=== PATIENT | male | born 1940 | race Caucasian/White ===

== ENCOUNTER 2016-09-24 21:18 | Inpatient (IN) | payer MEDICARE, BC ==
[2016-09-24] MEDS ORDERED: NS 0.9% 1000 ML* 1,000 ML IV ONE ×2 (22:20→23:43)
--- NOTE | 2016-09-24 22:47 | RAD ---
HISTORY: Fever COMPARISONS: July 02, 2016 VIEWS:1: Single frontal portable view of the chest at 10:34 PM FINDINGS: LINES AND TUBES: A left-sided pacemaker is noted CARDIOMEDIASTINAL SILHOUETTE: The cardiomediastinal silhouette is normal for portable technique. PLEURA: The costophrenic angles are sharp. No pleural abnormalities are noted. LUNG PARENCHYMA: The lungs are clear. ABDOMEN: The upper abdomen is clear. There is no subphrenic gas. BONES AND SOFT TISSUES: The patient is status post median sternotomy. IMPRESSION: NO ACTIVE CARDIOPULMONARY DISEASE.
[2016-09-24 23:25] LABS: Hematocrit 46 % (42-52); Hemoglobin 15.5 g/dl (14.0-18.0); Mean Corpuscular HGB Conc 34 g/dl (31-36); Mean Corpuscular Hemoglobin 32 pg (27-31); Mean Corpuscular Volume 95 fL (80-94); Mean Platelet Volume 8 um3 (7.4-10.4); Red Blood Count 4.91 10^6/ul (4.0-5.4); Red Cell Distribution Width 14 % (10.5-15); White Blood Count 11.1 10^3/ul (3.5-10.8)
[2016-09-24 23:35] LABS: Budding Yeast Present (Absent); Urine Bacteria 1+ (Absent); Urine Bilirubin Negative (Negative); Urine Glucose Negative (Negative); Urine Nitrite Negative (Negative)
[2016-09-24 23:38] LABS: BUN/Creatinine Ratio 21.2 (8-20); C Reactive Protein 2.63 mg/L (< 5.00); Calcium 9.3 mg/dL (8.6-10.3); EGFR Non-African American 73.9 (>60); Potassium 3.8 mmol/L (3.5-5.0); Total Bilirubin 0.8 mg/dL (0.2-1.0)
[2016-09-24] MEDS ORDERED: cefTRIAXone VIAL(*) 1,000 MG in NS 0.9% 50 ML* 50 ML IVPB ONE (23:39)
[2016-09-24 23:45] LABS: Troponin I 0.05 ng/mL (<0.04)
--- NOTE | 2016-09-25 00:23 | ED ---
Doris Stone Erika, scribed for Richi Posada MD on 09/24/16 at 2228 . HPI Febrile Illness - HPI Summary HPI Summary: Patient is a 76-year-old male presenting to the ED with chills. Patient reports that at 20:45 today, he developed chills and rigors. He states now, he still intermittently has shakes, and is constantly cold still. Pt notes some nasal discharge since getting here. He denies sore throat, SOB, cough, abdominal pain , diarrhea, and dysuria. Pt took oscillococcinum SUSTAINABILITY EXECUTIVE DIRECTOR, which is a homeopathic flu medication. PSHx defibrillator, pacemaker, aortic valve replacement - pt takes Xarelto. He denies Hx HTN, DM, and hyperlipidemia. Pt does not smoke or drink. - History of Current Complaint Chief Complaint: EDFever Time Seen by Provider: 09/24/16 22:13 Hx Obtained From: Patient, Family/Rn Cardiovascular Icu - Onset/Duration: Started Hours Ago, Atraumatic, Still Present Timing: Constant Current Severity: Moderate Pain Intensity: 0 Pain Scale Used: 0-10 Numeric Aggravating Factors: Nothing Alleviating Factors: Nothing Associated Signs and Symptoms: Chills - Allergy/Home Medications Allergies/Adverse Reactions: Allergies Allergy/AdvReac Type Severity Reaction Status Date / Time Lisinopril Allergy Unknown Verified 02/13/14 12:18 Reaction Details Spironolactone Allergy Unknown Verified 02/13/14 12:18 Reaction Details PMH/Surg Hx/FS Hx/Imm Hx Endocrine/Hematology History: Denies: Hx Diabetes, Hx Thyroid Disease Cardiovascular History: Reports: Hx Cardiomegaly, Hx Coronary Artery Disease, 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, Other Cardiovascular Problems/ Disorders - ATRIAL FLUTTER,PAROXYSMAL SUPRAVENTRICULAR TACHYCARDIA Denies: Hx Hypertension, Hx Peripheral Vascular Disease Respiratory History: Denies: Hx Asthma, Hx Chronic Obstructive Pulmonary Disease (COPD) GI History: Denies: Hx Ulcer History: Denies: Other Problems/Disorders Musculoskeletal History: Denies: Hx Arthritis, Hx Rheumatoid Arthritis, Hx Osteoporosis Sensory History: Reports: Hx Contacts or Glasses - WEARS GLASSES Denies: Hx Cataracts, Hx Glaucoma, Hx Hearing Aid Opthamlomology History: Reports: Hx Contacts or Glasses - WEARS GLASSES Denies: Hx Cataracts, Hx Glaucoma Neurological History: Denies: Hx Headaches, Hx Seizures, Hx Transient Ischemic Attacks (TIA) Psychiatric History: Denies: Hx Anxiety, Hx Depression - Surgical History Surgery Procedure, Year, and Place: Knee Replacements ,06. shoulder surgery. AVR / MVR. cardiac valve replacement Hx Anesthesia Reactions: No Infectious Disease History: No Infectious Disease History: Denies: Hx Hepatitis, Hx Human Immunodeficiency Virus (HIV), Hx of Known/ Suspected MRSA, Hx Shingles, Hx Tuberculosis, Traveled Outside the [place] in Last 30 Days Comment Only: Hx Clostridium Difficile - exposed to Cdiff - Family History Family History: Denies FHx anesthesia reaction - Social History Alcohol Use: None Hx Substance Use: No Substance Use Type: Reports: None Hx Tobacco Use: No Smoking Status (MU): Never Smoked Tobacco Review of Systems Positive: Fever, Chills Negative: Sore Throat, Nasal Discharge Negative: Shortness Of Breath, Cough Negative: Abdominal Pain, Diarrhea Negative: dysuria All Other Systems Reviewed And Are Negative: Yes Physical Exam - Summary Physical Exam Summary: VITAL SIGNS: Reviewed. GENERAL: Patient is a well developed and nourished male who is lying comfortable in the stretcher. Patient is not in any acute respiratory distress. HEAD AND FACE: No signs of trauma. No ecchymosis, hematomas or skull depressions. No sinus tenderness. EYES: PERRLA, EOMI x 2, No injected conjunctiva, no nystagmus. EARS: Hearing grossly intact. Ear canals and tympanic membranes are within normal limits. MOUTH: Oropharynx within normal limits. NECK: Supple, trachea is midline, no adenopathy, no JVD, no carotid bruit, no c- spine tenderness, neck with full ROM. CHEST: Symmetric, no tenderness at palpation LUNGS: Clear to auscultation bilaterally. No wheezing or crackles. CVS: Regular rate and rhythm, S1 and S2 present, no murmurs or gallops appreciated. ABDOMEN: Soft, non-tender. No signs of distention. No rebound no guarding, and no masses palpated. Bowel sounds are normal. EXTREMITIES: FROM in all major joints, no edema, no cyanosis or clubbing. NEURO: Alert and oriented x 3. No acute neurological deficits. Speech is normal and follows commands. SKIN: Dry and warm Triage Information Reviewed: Yes Vital Signs On Initial Exam: Initial Vitals Temp Pulse Resp BP Pulse Ox 99.3 F 80 22 124/64 98 09/24/16 21:20 09/24/16 21:20 09/24/16 21:20 09/24/16 21:20 09/24/16 21:20 Vital Signs Reviewed: Yes Diagnostics - Vital Signs Vital Signs Temp Pulse Resp BP Pulse Ox 09/24/16 21:20 99.3 F 80 22 124/64 98 - Laboratory Lab Results: Lab Results 09/24/16 09/24/16 09/24/16 Range/Units 22:50 22:50 22:50 WBC 11.1 H (3.5-10.8) 10^3/ul RBC 4.91 (4.0-5.4) 10^6/ul Hgb 15.5 (14.0-18.0) g/dl Hct 46 (42-52) % MCV 95 H (80-94) fL MCH 32 H (27-31) pg MCHC 34 (31-36) g/dl RDW 14 (10.5-15) % Plt Count 130 L (150-450) 10^3/ul MPV 8 (7.4-10.4) um3 Neut % (Auto) 89.3 H (38-83) % Lymph % (Auto) 4.2 L (25-47) % [place] % (Auto) 4.5 (1-9) % Eos % (Auto) 1.5 (0-6) % Baso % (Auto) 0.5 (0-2) % Absolute Neuts (auto) 9.9 H (1.5-7.7) 10^3/ul Absolute Lymphs (auto) 0.5 L (1.0-4.8) 10^3/ul Absolute Monos (auto) 0.5 (0-0.8) 10^3/ul Absolute Eos (auto) 0.2 (0-0.6) 10^3/ul Absolute Basos (auto) 0.1 (0-0.2) 10^3/ul Absolute Nucleated RBC 0.02 10^3/ul Nucleated RBC % 0.1 INR (Anticoag Therapy) 1.89 H (0.89-1.11) APTT 32.4 (26.0-36.3) seconds Fibrinogen 296 (110.8-404.3) mg/dL Sodium (133-145) mmol/L Potassium (3.5-5.0) mmol/L Chloride (101-111) mmol/L Carbon Dioxide (22-32) mmol/L Anion Gap (2-11) mmol/L BUN (6-24) mg/dL Creatinine (0.67-1.17) mg/dL Est GFR ( Amer) (>60) Est GFR (Non-Af Amer) (>60) BUN/Creatinine Ratio (8-20) Glucose (70-100) mg/dL Lactic Acid (0.5-2.0) mmol/L Calcium (8.6-10.3) mg/dL Total Bilirubin (0.2-1.0) mg/dL AST (13-39) U/L ALT (7-52) U/L Alkaline Phosphatase (34-104) U/L Total Creatine Kinase (10-223) U/L Troponin I (<0.04) ng/mL C-Reactive Protein (< 5.00) mg/L B-Natriuretic Peptide ( - 100) pg/mL Total Protein (6.4-8.9) g/dL Albumin (3.2-5.2) g/dL Globulin (2-4) g/dL Albumin/Globulin Ratio (1-3) Urine Color Yellow Urine Appearance Clear Urine pH 6.0 (5-9) Ur Specific [place] 1.012 (1.010-1.030) Urine Protein Negative (Negative) Urine Ketones Negative (Negative) Urine Blood 1+ H (Negative) Urine Nitrate Negative (Negative) Urine Bilirubin Negative (Negative) Urine Urobilinogen Negative (Negative) Ur Leukocyte Esterase 1+ H (Negative) Urine WBC (Auto) 3+(>20/hpf) H (Absent) Urine RBC (Auto) 3+(>10/hpf) H (Absent) Urine Bacteria 1+ H (Absent) Urine Yeast Present H (Absent) Urine Glucose Negative (Negative) 09/24/16 09/24/16 09/24/16 Range/Units 22:50 22:50 22:50 WBC (3.5-10.8) 10^3/ul RBC (4.0-5.4) 10^6/ul Hgb (14.0-18.0) g/dl Hct (42-52) % MCV (80-94) fL MCH (27-31) pg MCHC (31-36) g/dl RDW (10.5-15) % Plt Count (150-450) 10^3/ul MPV (7.4-10.4) um3 Neut % (Auto) (38-83) % Lymph % (Auto) (25-47) % [place] % (Auto) (1-9) % Eos % (Auto) (0-6) % Baso % (Auto) (0-2) % Absolute Neuts (auto) (1.5-7.7) 10^3/ul Absolute Lymphs (auto) (1.0-4.8) 10^3/ul Absolute Monos (auto) (0-0.8) 10^3/ul Absolute Eos (auto) (0-0.6) 10^3/ul Absolute Basos (auto) (0-0.2) 10^3/ul Absolute Nucleated RBC 10^3/ul Nucleated RBC % INR (Anticoag Therapy) (0.89-1.11) APTT (26.0-36.3) seconds Fibrinogen (110.8-404.3) mg/dL Sodium 135 (133-145) mmol/L Potassium 3.8 (3.5-5.0) mmol/L Chloride 102 (101-111) mmol/L Carbon Dioxide 26 (22-32) mmol/L Anion Gap 7 (2-11) mmol/L BUN 21 (6-24) mg/dL Creatinine 0.99 (0.67-1.17) mg/dL Est GFR ( Amer) 95.0 (>60) Est GFR (Non-Af Amer) 73.9 (>60) BUN/Creatinine Ratio 21.2 H (8-20) Glucose 101 H (70-100) mg/dL Lactic Acid 1.1 (0.5-2.0) mmol/L Calcium 9.3 (8.6-10.3) mg/dL Total Bilirubin 0.80 (0.2-1.0) mg/dL AST 25 (13-39) U/L ALT 26 (7-52) U/L Alkaline Phosphatase 55 (34-104) U/L Total Creatine Kinase 78 (10-223) U/L Troponin I 0.05 H* (<0.04) ng/mL C-Reactive Protein 2.63 (< 5.00) mg/L B-Natriuretic Peptide 324 H ( - 100) pg/mL Total Protein 7.0 (6.4-8.9) g/dL Albumin 4.0 (3.2-5.2) g/dL Globulin 3.0 (2-4) g/dL Albumin/Globulin Ratio 1.3 (1-3) Urine Color Urine Appearance Urine pH (5-9) Ur Specific [place] (1.010-1.030) Urine Protein (Negative) Urine Ketones (Negative) Urine Blood (Negative) Urine Nitrate (Negative) Urine Bilirubin (Negative) Urine Urobilinogen (Negative) Ur Leukocyte Esterase (Negative) Urine WBC (Auto) (Absent) Urine RBC (Auto) (Absent) Urine Bacteria (Absent) Urine Yeast (Absent) Urine Glucose (Negative) Result Diagrams: 09/24/16 22:50 09/24/16 22:50 Lab Statement: Any lab studies that have been ordered have been reviewed, and results considered in the medical decision making process. - Radiology CXR Radiology Interpretation Completed By: Radiologist - IMPRESSION: NO ACTIVE CARDIOPULMONARY DISEASE. - EKG 23:49 Cardiac Rate: NL - at 74 bpm EKG Rhythm: Sinus Rhythm EKG Interpretation: No ST elevation. ST depressions V5-V6. Re-Evaluation - Re-Evaluation First Eval Re-Evaluation Time: 23:44 Comment: Discussed results and plan with patient Course/Dx - Course Assessment/Plan: Patient is a 76-year-old male presenting to the ED with chills. Patient reports that at 20:45 today, he developed chills and rigors. He states now, he still intermittently has shakes, and is constantly cold still. Pt notes some nasal discharge since getting here. He denies sore throat, SOB, cough, abdominal pain, diarrhea, and dysuria. Pt took oscillococcinum SUSTAINABILITY EXECUTIVE DIRECTOR, which is a homeopathic flu medication. PSHx defibrillator, pacemaker, aortic valve replacement - pt takes Xarelto. He denies Hx HTN, DM, and hyperlipidemia. Pt does not smoke or drink. Blood work shows a WBC of 11.1, glucose of 101, troponin of 0.05, and BNP of 324. UA shows UTI. Influenza A&B are negative. CXR shows no acute pathology. EKG shows NSR at [address] depressions in V5 and V6. In the ED course, pt was given aspirin because of the increased troponin. The pt denies and CP or SOB. For the UTI, the pt was placed on rocephin. At this time, I discussed my PE and findings with Dr. Blevins who will be admitting the pt to his services for further work up and management. The pt is A &Ox3 and hemodynamically stable. - Febrile Illness Differential Diagnoses: Sepsis, Other: - UTI, Pneumonia, Flu - Diagnoses Provider Diagnoses: Acute UTI, Elevated troponin I level, r/o sepsis - Provider Notifications Discussed Care Of Patient With: Dr. Blevins (hospitalist) at 23:43 - recommends that pt receive IV fluids to see if BP will increase. Dr. Blevins (hospitalist) at 00:10 - agrees to admit Discharge - Discharge Plan Condition: Stable Disposition: ADMITTED TO [facility] Referrals: Sai Gbison MD [Primary Care Provider] - The documentation as recorded by the Doris baez Erika accurately reflects the service I personally performed and the decisions made by me, Richi Posada MD.
--- NOTE | 2016-09-25 00:27 | HP ---
H&P (Free Text) History and Physical: PCP: Bernabe Gibson MD Cardiology: Spencer Glover MD Date/Time of Evaluation: 09/25/201624 CC: chills & shaking HPI: Mr Dasilva is a 76YO male HX CAD, tissue AVR, mitral valve repair, & AICD placement presents reporting onset of chills and rigors at 1900, but no chest pain, SOB, N/V, palpitations, light-headedness, or sweats. He denies abdominal pain and change in bowel/bladder. He denies HX of similar. He and his were concerned for influenza and so presented for evaluation. Work up is notable for stable vitals. UA is consistent with UTI. CXR is negative. Labs show WBCs of 11k w/ 89% neutrophils and a troponin of 0.05 with a BNP of 324 (both of which appear to be baseline for him). Given his extensive cardiac HX request for observation was made. He reports having had a stress test last summer and an ECHO last week, but I can find neither in our records. Will place a request for records from Spencer Glover MD cardiology. 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 ROS: as above, otherwise reviewed and all were negative Constitutional: NAD, normally developed, well-nourished white male vitals: Vital Signs Temp 39.0 C 09/25/16 01:02 Pulse 73 09/25/16 01:00 Resp 20 09/25/16 01:00 BP 108/60 09/25/16 00:30 Pulse Ox 94 09/25/16 01:00 Intake & Output 02/08/17 02/08/17 02/09/17 11:59 23:59 11:59 Intake Total 1000 50 Balance 1000 50 Weight 195 lb Intake: IV Fluids 1000 50 HEENM: atraumatic; sclera/conjunctiva: non-icteric/clear; hearing: clinically intact; oropharynx: clear, mucosa moist Neck: soft tissue: non-tender; thyroid: normal Pulmonary: clear to auscultation bilaterally, good aeration, no accessory muscle use CV: RR/RR, normal S1S2, no carotid bruit, no jugular venous distention, 2+ B DP/ PT, no edema Abdominal: soft, non-distended, non-tender, no rebound/guarding/rigidity, normoactive bowel sounds, no hepatosplenomegaly or masses, no costovertebral angle tenderness Musculoskeletal: general: grossly intact; gait: stable Integumental: normal appearance and texture Psychiatric orientation: AA&O to PPS affect: calm mood: cooperative eye contact: good content: reliable responses: timely insight: good Testing: Lab Results 09/24/16 09/24/16 09/24/16 Range/Units 22:50 22:50 22:50 WBC 11.1 H (3.5-10.8) 10^3/ul RBC 4.91 (4.0-5.4) 10^6/ul Hgb 15.5 (14.0-18.0) g/dl Hct 46 (42-52) % MCV 95 H (80-94) fL MCH 32 H (27-31) pg MCHC 34 (31-36) g/dl RDW 14 (10.5-15) % Plt Count 130 L (150-450) 10^3/ul MPV 8 (7.4-10.4) um3 Neut % (Auto) 89.3 H (38-83) % Lymph % (Auto) 4.2 L (25-47) % [place] % (Auto) 4.5 (1-9) % Eos % (Auto) 1.5 (0-6) % Baso % (Auto) 0.5 (0-2) % Absolute Neuts (auto) 9.9 H (1.5-7.7) 10^3/ul Absolute Lymphs (auto) 0.5 L (1.0-4.8) 10^3/ul Absolute Monos (auto) 0.5 (0-0.8) 10^3/ul Absolute Eos (auto) 0.2 (0-0.6) 10^3/ul Absolute Basos (auto) 0.1 (0-0.2) 10^3/ul Absolute Nucleated RBC 0.02 10^3/ul Nucleated RBC % 0.1 INR (Anticoag Therapy) 1.89 H (0.89-1.11) APTT 32.4 (26.0-36.3) seconds Fibrinogen 296 (110.8-404.3) mg/dL Sodium (133-145) mmol/L Potassium (3.5-5.0) mmol/L Chloride (101-111) mmol/L Carbon Dioxide (22-32) mmol/L Anion Gap (2-11) mmol/L BUN (6-24) mg/dL Creatinine (0.67-1.17) mg/dL Est GFR ( Amer) (>60) Est GFR (Non-Af Amer) (>60) BUN/Creatinine Ratio (8-20) Glucose (70-100) mg/dL Lactic Acid (0.5-2.0) mmol/L Calcium (8.6-10.3) mg/dL Total Bilirubin (0.2-1.0) mg/dL AST (13-39) U/L ALT (7-52) U/L Alkaline Phosphatase (34-104) U/L Total Creatine Kinase (10-223) U/L Troponin I (<0.04) ng/mL C-Reactive Protein (< 5.00) mg/L B-Natriuretic Peptide ( - 100) pg/mL Total Protein (6.4-8.9) g/dL Albumin (3.2-5.2) g/dL Globulin (2-4) g/dL Albumin/Globulin Ratio (1-3) Urine Color Yellow Urine Appearance Clear Urine pH 6.0 (5-9) Ur Specific [place] 1.012 (1.010-1.030) Urine Protein Negative (Negative) Urine Ketones Negative (Negative) Urine Blood 1+ H (Negative) Urine Nitrate Negative (Negative) Urine Bilirubin Negative (Negative) Urine Urobilinogen Negative (Negative) Ur Leukocyte Esterase 1+ H (Negative) Urine WBC (Auto) 3+(>20/hpf) H (Absent) Urine RBC (Auto) 3+(>10/hpf) H (Absent) Urine Bacteria 1+ H (Absent) Urine Yeast Present H (Absent) Urine Glucose Negative (Negative) Influenza A (Rapid) (Negative) Influenza B (Rapid) (Negative) 09/24/16 09/24/16 09/24/16 Range/Units 22:50 22:50 22:50 WBC (3.5-10.8) 10^3/ul RBC (4.0-5.4) 10^6/ul Hgb (14.0-18.0) g/dl Hct (42-52) % MCV (80-94) fL MCH (27-31) pg MCHC (31-36) g/dl RDW (10.5-15) % Plt Count (150-450) 10^3/ul MPV (7.4-10.4) um3 Neut % (Auto) (38-83) % Lymph % (Auto) (25-47) % [place] % (Auto) (1-9) % Eos % (Auto) (0-6) % Baso % (Auto) (0-2) % Absolute Neuts (auto) (1.5-7.7) 10^3/ul Absolute Lymphs (auto) (1.0-4.8) 10^3/ul Absolute Monos (auto) (0-0.8) 10^3/ul Absolute Eos (auto) (0-0.6) 10^3/ul Absolute Basos (auto) (0-0.2) 10^3/ul Absolute Nucleated RBC 10^3/ul Nucleated RBC % INR (Anticoag Therapy) (0.89-1.11) APTT (26.0-36.3) seconds Fibrinogen (110.8-404.3) mg/dL Sodium 135 (133-145) mmol/L Potassium 3.8 (3.5-5.0) mmol/L Chloride 102 (101-111) mmol/L Carbon Dioxide 26 (22-32) mmol/L Anion Gap 7 (2-11) mmol/L BUN 21 (6-24) mg/dL Creatinine 0.99 (0.67-1.17) mg/dL Est GFR ( Amer) 95.0 (>60) Est GFR (Non-Af Amer) 73.9 (>60) BUN/Creatinine Ratio 21.2 H (8-20) Glucose 101 H (70-100) mg/dL Lactic Acid 1.1 (0.5-2.0) mmol/L Calcium 9.3 (8.6-10.3) mg/dL Total Bilirubin 0.80 (0.2-1.0) mg/dL AST 25 (13-39) U/L ALT 26 (7-52) U/L Alkaline Phosphatase 55 (34-104) U/L Total Creatine Kinase 78 (10-223) U/L Troponin I 0.05 H* (<0.04) ng/mL C-Reactive Protein 2.63 (< 5.00) mg/L B-Natriuretic Peptide 324 H ( - 100) pg/mL Total Protein 7.0 (6.4-8.9) g/dL Albumin 4.0 (3.2-5.2) g/dL Globulin 3.0 (2-4) g/dL Albumin/Globulin Ratio 1.3 (1-3) Urine Color Urine Appearance Urine pH (5-9) Ur Specific [place] (1.010-1.030) Urine Protein (Negative) Urine Ketones (Negative) Urine Blood (Negative) Urine Nitrate (Negative) Urine Bilirubin (Negative) Urine Urobilinogen (Negative) Ur Leukocyte Esterase (Negative) Urine WBC (Auto) (Absent) Urine RBC (Auto) (Absent) Urine Bacteria (Absent) Urine Yeast (Absent) Urine Glucose (Negative) Influenza A (Rapid) (Negative) Influenza B (Rapid) (Negative) 09/24/16 Range/Units 23:38 WBC (3.5-10.8) 10^3/ul RBC (4.0-5.4) 10^6/ul Hgb (14.0-18.0) g/dl Hct (42-52) % MCV (80-94) fL MCH (27-31) pg MCHC (31-36) g/dl RDW (10.5-15) % Plt Count (150-450) 10^3/ul MPV (7.4-10.4) um3 Neut % (Auto) (38-83) % Lymph % (Auto) (25-47) % [place] % (Auto) (1-9) % Eos % (Auto) (0-6) % Baso % (Auto) (0-2) % Absolute Neuts (auto) (1.5-7.7) 10^3/ul Absolute Lymphs (auto) (1.0-4.8) 10^3/ul Absolute Monos (auto) (0-0.8) 10^3/ul Absolute Eos (auto) (0-0.6) 10^3/ul Absolute Basos (auto) (0-0.2) 10^3/ul Absolute Nucleated RBC 10^3/ul Nucleated RBC % INR (Anticoag Therapy) (0.89-1.11) APTT (26.0-36.3) seconds Fibrinogen (110.8-404.3) mg/dL Sodium (133-145) mmol/L Potassium (3.5-5.0) mmol/L Chloride (101-111) mmol/L Carbon Dioxide (22-32) mmol/L Anion Gap (2-11) mmol/L BUN (6-24) mg/dL Creatinine (0.67-1.17) mg/dL Est GFR ( Amer) (>60) Est GFR (Non-Af Amer) (>60) BUN/Creatinine Ratio (8-20) Glucose (70-100) mg/dL Lactic Acid (0.5-2.0) mmol/L Calcium (8.6-10.3) mg/dL Total Bilirubin (0.2-1.0) mg/dL AST (13-39) U/L ALT (7-52) U/L Alkaline Phosphatase (34-104) U/L Total Creatine Kinase (10-223) U/L Troponin I (<0.04) ng/mL C-Reactive Protein (< 5.00) mg/L B-Natriuretic Peptide ( - 100) pg/mL Total Protein (6.4-8.9) g/dL Albumin (3.2-5.2) g/dL Globulin (2-4) g/dL Albumin/Globulin Ratio (1-3) Urine Color Urine Appearance Urine pH (5-9) Ur Specific [place] (1.010-1.030) Urine Protein (Negative) Urine Ketones (Negative) Urine Blood (Negative) Urine Nitrate (Negative) Urine Bilirubin (Negative) Urine Urobilinogen (Negative) Ur Leukocyte Esterase (Negative) Urine WBC (Auto) (Absent) Urine RBC (Auto) (Absent) Urine Bacteria (Absent) Urine Yeast (Absent) Urine Glucose (Negative) Influenza A (Rapid) Negative (Negative) Influenza B (Rapid) Negative (Negative) ECG, personally reviewed: NSR rate 74 w/ interval development of ST depression in V5/6 & I CXR, personally reviewed: cardiomegaly, AICD in L chest, no acute process Impression: 76M presenting with subjective chills and rigors suspect 2nd UTI w/ finding of abnormal ECG DIAGNOSIS & PLAN Primary UTI : ceftriaxone IV : cautious IVFs given cardiomyopathy EF 20-25% : blood & urine CXs : supportive care abnormal ECG in setting of CAD/1vCABG/PAOD/cardiomyopathy EF 20-25%/tissue AVR/ HX mitral valve repair : no cardiac complaints : troponin & BNP are baseline : trend troponin : telemetry : if these are negative, would not pursue further inpatient work up and recommend outpatient f/u w/ cardiology Admission Rational: CDU observation for initiation of ABX for UTI & cardiac monitoring DVTp: continue rivaroxaban once reconciled Code Status: full HCP:
[2016-09-25] MEDS ORDERED: traMADol TAB* 50 MG PO PRN (01:21)
[2016-09-25] MEDS ORDERED: Melatonin (NF) 3 MG TAB PO PRN (01:21)
[2016-09-25] MEDS ORDERED: Ondansetron INJ* 2 MG/ML VIAL IV PRN (01:21)
[2016-09-25] MEDS: Aspirin TAB* 325 MG PO SCH ×2 (02:32→08:35)
[2016-09-25] MEDS: NS 0.9% 1000 ML* 1,000 ML IV SCH ×2 (02:33→13:41)
[2016-09-25] MEDS: Omeprazole CAP* 20 MG PO SCH (05:35)
[2016-09-25 06:07] LABS: Hematocrit 43 % (42-52); Hemoglobin 14.5 g/dl (14.0-18.0); Mean Corpuscular HGB Conc 34 g/dl (31-36); Mean Corpuscular Hemoglobin 32 pg (27-31); Mean Corpuscular Volume 94 fL (80-94); Mean Platelet Volume 8 um3 (7.4-10.4); Red Blood Count 4.57 10^6/ul (4.0-5.4); Red Cell Distribution Width 13 % (10.5-15); White Blood Count 18.4 10^3/ul (3.5-10.8)
[2016-09-25 06:29] LABS: Troponin I 0.09 ng/mL (<0.04)
[2016-09-25] MEDS: Docusate CAP* 100 MG PO SCH ×2 (07:46→22:02)
[2016-09-25] MEDS: Acetaminophen TAB* 325 MG PO PRN ×2 (07:46→15:25)
--- NOTE | 2016-09-25 10:31 | PN ---
Subjective Date of Service: 09/25/16 Interval History: Patient seen this morning. Sitting up in bed, says he feels that he is getting better. No further chills since early this morning. Still reports some dysuria. No CVA tenderness. Family History: Unchanged from Admission Social History: Unchanged from Admission Past Medical History: Unchanged from Admission Objective Active Medications: Acetaminophen (Tylenol Tab*) 650 mg PO Q6H PRN Aspirin (Aspirin Tab*) 325 mg PO DAILY KENDRA Docusate Sodium (Colace Cap*) 200 mg PO BID KENDRA Sodium Chloride (Ns 0.9% 1000 Ml*) 1,000 mls @ 75 mls/hr IV PER RATE KENDRA Ceftriaxone Sodium 1,000 mg/ (Sodium Chloride) 50 mls @ 200 mls/hr IVPB Q24H KENDRA Melatonin (Melatonin (Nf)) 3 mg PO BEDTIME PRN; Protocol Omeprazole (Prilosec Cap*) 20 mg PO DAILY@0600 KENDRA Ondansetron HCl (Zofran Inj*) 4 mg IV Q6H PRN Tramadol HCl (Ultram*) 50 mg PO Q6H PRN Vital Signs 09/25/16 09/25/16 09/25/16 01:00 01:02 01:30 Temperature 102.2 F Pulse Rate 73 73 Respiratory 20 20 Rate Blood Pressure 90/53 (mmHg) O2 Sat by Pulse 94 93 Oximetry 09/25/16 09/25/16 09/25/16 02:02 02:10 02:11 Temperature 98.4 F 102.6 F 102.6 F Pulse Rate 70 73 Respiratory 16 16 Rate Blood Pressure 93/53 93/53 (mmHg) O2 Sat by Pulse 92 92 Oximetry 09/25/16 09/25/16 09/25/16 03:22 07:41 09:51 Temperature 98.7 F 100.5 F Pulse Rate 86 70 Respiratory 20 18 Rate Blood Pressure 133/93 90/49 (mmHg) O2 Sat by Pulse 96 99 99 Oximetry Oxygen Devices in Use Now: None Appearance: Elderly, M, sitting up in bed in NAD Eyes: No Scleral Icterus Ears/Nose/Mouth/Throat: Mucous Membranes Moist Neck: NL Appearance and Movements; NL JVP Respiratory: Symmetrical Chest Expansion and Respiratory Effort, Clear to Auscultation Cardiovascular: RRR, - - PRISCILLA Abdominal: NL Sounds; No Tenderness; No Distention Lymphatic: No Cervical Adenopathy Extremities: No Edema Skin: No Rash or Ulcers Neurological: Alert and Oriented x 3 Result Diagrams: 09/25/16 05:54 09/24/16 22:50 Assess/Plan/Problems-Billing Assessment: UTI in a 76 yo F with hx of CAD s/p CABG, ICM with EF 20-25%, tissue AVR, mitral valve repair, PAD - Patient Problems (1) UTI (urinary tract infection) Current Visit: Yes Comment: Continue IV CTX. Significant fevers and leukocytosis. Continue light IVF, will recheck BP now. Concerned that patient may be bacteremic, keep a close eye on BCx. (2) Elevated troponin Current Visit: Yes Comment: Mild elevation, around baseline, not surprising in the setting of significant infection. Repeat troponin pending. Hold on additional testing at this time. (3) CAD (coronary artery disease) Current Visit: Yes Comment: Holding coreg (4) Atrial flutter Current Visit: Yes Comment: Noted on prior consult note by Dr. Mcfarland. Continue xarelto. Holding coreg. (5) V-tach Current Visit: Yes Comment: s/p ICD. Continue Amiodarone. (6) DVT prophylaxis Current Visit: Yes Comment: Xarelto Status and Disposition: Inpatient for IV ABx, monitoring of BCx
[2016-09-25] MEDS ORDERED: NS 0.9% 250 ML* 250 ML IV ONE (10:32)
[2016-09-25 10:47] LABS: Troponin I 0.1 ng/mL (<0.04)
[2016-09-25] MEDS ORDERED: Amiodarone TAB* 200 MG PO SCH (11:00)
[2016-09-25] MEDS ORDERED: Rivaroxaban TAB(*) 20 MG TAB PO SCH (11:00)
[2016-09-25] MEDS: Amiodarone TAB* 200 MG PO SCH (17:33)
[2016-09-25] MEDS: Rivaroxaban TAB(*) 20 MG TAB PO SCH (17:34)
[2016-09-26] MEDS: cefTRIAXone VIAL(*) 1,000 MG in NS 0.9% 50 ML* 50 ML IVPB SCH (00:26)
[2016-09-26] MEDS: NS 0.9% 1000 ML* 1,000 ML IV SCH (03:34)
[2016-09-26] MEDS: Omeprazole CAP* 20 MG PO SCH (06:06)
[2016-09-26 06:13] LABS: Hematocrit 38 % (42-52); Hemoglobin 12.8 g/dl (14.0-18.0); Mean Corpuscular HGB Conc 34 g/dl (31-36); Mean Corpuscular Hemoglobin 32 pg (27-31); Mean Corpuscular Volume 94 fL (80-94); Mean Platelet Volume 9 um3 (7.4-10.4); Red Blood Count 3.98 10^6/ul (4.0-5.4); Red Cell Distribution Width 14 % (10.5-15); White Blood Count 16.6 10^3/ul (3.5-10.8)
[2016-09-26 06:20] LABS: Comments Flag Yes
[2016-09-26 06:21] LABS: Add Diff/Slide Review? Slide Review Added
[2016-09-26 06:30] LABS: BUN/Creatinine Ratio 16.8 (8-20); Calcium 8.2 mg/dL (8.6-10.3); EGFR African American 86.9 (>60); EGFR Non-African American 67.6 (>60); Potassium 3.7 mmol/L (3.5-5.0)
[2016-09-26 06:53] LABS: Troponin I 0.16 ng/mL (<0.04)
[2016-09-26] MEDS: Docusate CAP* 100 MG PO SCH ×2 (08:09→20:52)
--- NOTE | 2016-09-26 14:09 | PN ---
Subjective Date of Service: 09/26/16 Interval History: Patient seen this morning. Reports feeling better overall but still having some dysuria and urinary urgency. No fever or chills overnight. Family History: Unchanged from Admission Social History: Unchanged from Admission Past Medical History: Unchanged from Admission Objective Active Medications: Acetaminophen (Tylenol Tab*) 650 mg PO Q6H PRN Amiodarone HCl (Cordarone Tab*) 200 mg PO 1700 KENDRA Docusate Sodium (Colace Cap*) 200 mg PO BID KENDRA Ceftriaxone Sodium 1,000 mg/ (Sodium Chloride) 50 mls @ 200 mls/hr IVPB Q24H KENDRA Melatonin (Melatonin (Nf)) 3 mg PO BEDTIME PRN; Protocol Omeprazole (Prilosec Cap*) 20 mg PO DAILY@0600 KENDRA Ondansetron HCl (Zofran Inj*) 4 mg IV Q6H PRN Rivaroxaban (Xarelto (*)) 20 mg PO 1700 KENDRA Tramadol HCl (Ultram*) 50 mg PO Q6H PRN Vital Signs 09/25/16 09/25/16 09/25/16 14:16 14:20 14:30 Temperature 100.1 F 100.1 F Pulse Rate 68 Respiratory 18 18 Rate Blood Pressure 110/55 110/55 (mmHg) O2 Sat by Pulse 94 Oximetry 09/25/16 09/25/16 09/25/16 16:16 18:04 19:57 Temperature 99.8 F 99.1 F Pulse Rate 65 73 Respiratory 18 18 Rate Blood Pressure 93/42 104/49 (mmHg) O2 Sat by Pulse 94 93 94 Oximetry 09/25/16 09/25/16 09/26/16 20:00 23:46 03:54 Temperature 99.8 F 98.0 F Pulse Rate 67 59 Respiratory 18 16 16 Rate Blood Pressure 94/48 87/46 (mmHg) O2 Sat by Pulse 91 94 Oximetry 09/26/16 09/26/16 09/26/16 04:01 07:31 07:40 Temperature 99.1 F Pulse Rate 63 Respiratory 16 Rate Blood Pressure 90/50 81/44 94/54 (mmHg) O2 Sat by Pulse 92 Oximetry 09/26/16 08:00 Temperature Pulse Rate Respiratory 16 Rate Blood Pressure (mmHg) O2 Sat by Pulse Oximetry Oxygen Devices in Use Now: None Appearance: Elderly, M, laying in bed in NAD Eyes: No Scleral Icterus Ears/Nose/Mouth/Throat: Mucous Membranes Moist Neck: NL Appearance and Movements; NL JVP Respiratory: Symmetrical Chest Expansion and Respiratory Effort, Clear to Auscultation Cardiovascular: RRR, - - PRISCILLA Abdominal: NL Sounds; No Tenderness; No Distention Lymphatic: No Cervical Adenopathy Extremities: No Edema Skin: No Rash or Ulcers Neurological: Alert and Oriented x 3 Result Diagrams: 09/26/16 05:26 09/26/16 05:26 Additional Lab and Data: Assess/Plan/Problems-Billing Assessment: UTI in a 76 yo F with hx of CAD s/p CABG, ICM with EF 20-25%, tissue AVR, mitral valve repair, PAD - Patient Problems (1) UTI (urinary tract infection) Current Visit: Yes Comment: Continue IV CTX. UCx growing Klebsiella. Leukocytosis improving. Stop IVF, monitor BPs. (2) Elevated troponin Current Visit: Yes Comment: CK-MB never elevated. Hold on additional testing at this time. (3) CAD (coronary artery disease) Current Visit: Yes Comment: Holding coreg (4) Atrial flutter Current Visit: Yes Comment: Noted on prior consult note by Dr. Mcfarland. Continue xarelto. Holding coreg. (5) V-tach Current Visit: Yes Comment: s/p ICD. Continue Amiodarone. (6) DVT prophylaxis Current Visit: Yes Comment: Xarelto Status and Disposition: Inpatient for IV ABx
[2016-09-26] MEDS: Rivaroxaban TAB(*) 20 MG TAB PO SCH (17:26)
[2016-09-26] MEDS: Amiodarone TAB* 200 MG PO SCH (17:27)
[2016-09-27] MEDS: cefTRIAXone VIAL(*) 1,000 MG in NS 0.9% 50 ML* 50 ML IVPB SCH (00:49)
[2016-09-27] MEDS: Omeprazole CAP* 20 MG PO SCH (05:08)
[2016-09-27 06:22] LABS: Hematocrit 39 % (42-52); Hemoglobin 13.1 g/dl (14.0-18.0); Mean Corpuscular HGB Conc 34 g/dl (31-36); Mean Corpuscular Hemoglobin 32 pg (27-31); Mean Corpuscular Volume 95 fL (80-94); Mean Platelet Volume 9 um3 (7.4-10.4); Red Blood Count 4.08 10^6/ul (4.0-5.4); Red Cell Distribution Width 14 % (10.5-15); White Blood Count 8.3 10^3/ul (3.5-10.8)
[2016-09-27 06:24] LABS: Add Diff/Slide Review? Slide Review Added; Comments Flag Yes
[2016-09-27 07:24] VITALS: BP 101/56
[2016-09-27] MEDS: Docusate CAP* 100 MG PO SCH (07:59)
--- NOTE | 2016-09-27 09:21 | DCNOTE ---
Patient seen this morning. Feels well. No fever/chills. No dysuria, urgency. On exam, RRR, s1 and s2 present, PRISCILLA, lungs CTA B/L, no LE edema D/C home on additional oral ABx. Hold Coreg until BPs normalize for the patient.
--- NOTE | 2016-09-27 12:29 | DS ---
CC: Sai Gibson MD DISCHARGE SUMMARY: DATE OF ADMISSION: 09/24/16 DATE OF DISCHARGE: 09/27/16 PRIMARY CARE PHYSICIAN: Sai Gibson MD PRINCIPAL DISCHARGE DIAGNOSIS: Urinary tract infection. SECONDARY DIAGNOSES: 1. Coronary artery disease. 2. Aortic valve replacement. 3. Transurethral resection of the prostate. 4. Ventricular tachycardia, status post ICD placement. 5. Mitral valve repair. DISCHARGE MEDICATION REGIMEN: 1. Keflex 250 mg by mouth 4 times daily. 2. Home vitamins and probiotics. 3. Coreg 3.125 mg by mouth daily to resume once blood pressures are back to the patient's baseline. 4. Eplerenone 25 mg by mouth daily. 5. Xarelto 20 mg by mouth daily. 6. Amiodarone 100 mg by mouth daily. STUDIES DONE DURING HOSPITALIZATION: Chest x-ray, impression: No active cardiopulmonary disease. HISTORY OF PRESENT ILLNESS AND HOSPITAL SUMMARY: Please see the full history and physical by Dr. Fr caridad Blevins for details. Briefly, Mr. 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 The patient was found to have positive UA and started on ceftriaxone. He had an elevated white blood cell count that peaked at 18. He was also hypotensive on first day or so and was given IV fluids. He had a mild elevation in his troponin at 0.05 that was trending up to 0.16; however, his CK and CK-MB remained normal. It was felt this was likely due to demand from the patient's resp onse to infection. The patient's blood pressures normalized for the most part. He was ambulating a round the unit and felt well. His urine culture grew klebsiella that was resistant only to ampicill in. He was discharged on oral Keflex to complete a 7-day course of total antibiotics as an outpatie nt. He will follow up with Dr. Gibson. TIME SPENT: Total time spent on this discharge was 35 minutes. This is a summary of the hospitalization. Please see the full medical record for further details. [id number]/[facility] #: [id number]
== END 2016-09-27 10:10 | disposition home or self-care (01) | DRG 690 ==
LOC: ED 21:18 → MEDTELE 09-25 00:40 → OBSVTOIN 09-25 10:42
PROVIDERS: ADMIT Hospitalist; ATTEND Hospitalist
DX: N39.0 Urinary tract infection, site not specified (principal); I47.2 Ventricular tachycardia; I95.9 Hypotension, unspecified; I42.9 Cardiomyopathy, unspecified; I48.92 Unspecified atrial flutter; I25.5 Ischemic cardiomyopathy; B96.89 Other specified bacterial agents as the cause of diseases classified elsewhere; I25.10 Atherosclerotic heart disease of native coronary artery without angina pectoris; Z96.653 Presence of artificial knee joint, bilateral; I77.9 Disorder of arteries and arterioles, unspecified; R94.31 Abnormal electrocardiogram [ECG] [EKG]; R79.89 Other specified abnormal findings of blood chemistry; I73.9 Peripheral vascular disease, unspecified; Z16.11 Resistance to penicillins; Z88.8 Allergy status to other drugs, medicaments and biological substances; Z95.2 Presence of prosthetic heart valve; Z95.810 Presence of automatic (implantable) cardiac defibrillator; Z95.1 Presence of aortocoronary bypass graft; Z80.6 Family history of leukemia; Z90.79 Acquired absence of other genital organ(s); Z79.01 Long term (current) use of anticoagulants
CPT/HCPCS: 36415; 71010; 80048; 80053; 81003; 81015; 82550; 82553; 83605; 83880; 84484; 85025; 85060; 85384; 85610; 85730; 86140; 87040; 87077; 87086; 87186; 87502; 93005; A9270-GY; G0378; J0696

== ENCOUNTER 2017-03-16 09:30 | Emergency (ER) | payer MEDICARE, BC ==
[2017-03-16 09:44] VITALS: BP 106/63
--- NOTE | 2017-03-16 12:09 | UC ---
lino Stone Timothy, scribed for Francis Denney MD on 03/16/17 at 1025 . Ear Complaint HPI - HPI Summary HPI Summary: Mark Dasilva is a 77 yo male presenting to [facility] with the feeling of his left ear being plugged for the past 10 days. He denies any pain or drainage, but notes some hearing loss. He has self-medicated with OTC ear drops with no relief. He is concerned for earwax accumulation. He denies anyother Sx. His MHx includes aortic valve replacement, CAD, heart murmur, AVR, MVR, cardiomegaly, paroxysmal SVT, C. diff exposure. - History of Current Complaint Chief Complaint: UCEar Stated Complaint: PLUGGED EAR Time Seen by Provider: 03/16/17 10:33 Hx Obtained From: Patient Onset/Duration: Gradual Onset, Lasting Weeks, Still Present Severity Initially: Moderate Severity Currently: Moderate Pain Intensity: 0 Pain Scale Used: 0-10 Numeric Associated Signs/Symptoms: Positive: Hearing Loss - Allergies/Home Medications Allergies/Adverse Reactions: Allergies Allergy/AdvReac Type Severity Reaction Status Date / Time Lisinopril Allergy See Comment Verified 03/16/17 09:39 Spironolactone Allergy See Comment Verified 03/16/17 09:39 PMH/Surg Hx/FS Hx/Imm Hx Cardiovascular History: Cardiac Disease, Other Other Cardiovascular History: aortic valve replacement, murmur, AVR, MVR, cardiomegaly, paroxysmal SVT - Surgical History Surgical History: Yes Surgery Procedure, Year, and Place: Knee Replacements ,06. bilat shoulder surgery. AVR / MVR. cardiac valve replacement - Family History Known Family History: Positive: Cardiac Disease Negative: Diabetes Family History: Denies FHx anesthesia reaction - Social History Alcohol Use: None Alcohol Amount: 1 BEER EVERY 4-6 MONTHS Substance Use Type: None Smoking Status (MU): Never Smoked Tobacco - Immunization History Most Recent Influenza Vaccination: ALLERGIC Most Recent Tetanus Shot: UNKNOWN Most Recent Pneumonia Vaccination: ALLERGIC Review of Systems Constitutional: Negative Skin: Negative Eyes: Negative ENT: Other - ear plug Respiratory: Negative Cardiovascular: Negative Gastrointestinal: Negative Genitourinary: Negative Motor: Negative Neurovascular: Negative Musculoskeletal: Negative Neurological: Negative Psychological: Negative All Other Systems Reviewed And Are Negative: Yes Physical Exam Triage Information Reviewed: Yes Vital Signs: Initial Vital Signs Temp 98.6 F 03/16/17 09:41 Pulse 64 03/16/17 09:41 Resp 16 03/16/17 09:41 BP 106/63 03/16/17 09:41 Pulse Ox 100 03/16/17 09:41 Vital Signs Reviewed: Yes - Additional Comments The patient is well-nourished in no acute distress and in no acute pain. The skin is warm and dry and skin color reflects adequate perfusion. HEENT: The head is normocephalic and atraumatic. The pupils are equal and reactive. The conjunctivae are clear and without drainage. Nares are patent and without drainage. Mouth reveals moist mucous membranes and the throat is without erythema and exudate. The external ears are intact. The ear canals are patent and without drainage. The tympanic membranes are intact. Impacted cerumen in ears bilaterally. Neck is supple with full range of motion and non-tender. There are no carotid bruits. There is no neck vein distension. Respiratory: Chest is non-tender. Lungs are clear to auscultation and breath sounds are symmetrical and equal. Cardiovascular: Heart is regular rate and rhythm. There is no murmur or rub auscultated. There is no peripheral edema and pulses are symmetrical and equal. Abdomen: The abdomen is soft and non-tender. There are normal bowel sounds heard in all four quadrants and there is no organomegaly palpated. Musculoskeletal: There is no back pain noted. Extremities are non-tender with full range of motion. There is good capillary refill. There is no peripheral edema or calf tenderness elicited. Neurological: Patient is alert and oriented to person, place and time. The patient has symmetrical motor strength in all four extremities. Cranial nerves are grossly intact. Deep tendon reflexes are symmetrical and equal in all four extremities. Psychiatric: The patient has an appropriate affect and does not exhibit any anxiety or depression. Re-Evaluation - Re-Evaluation First Eval Re-Evaluation Time: 11:18 Change: Improved Comment: Pt is S/P bilateral ear irrigation. Examination of left ear shows no cerumen. Left TM appears dull with possibble effusion. Both TM's intact. Right ear has some cerumen remaining. Pt advised to try Debrox weekly. Ear Complaint Course/Dx - Course Course Of Treatment: Mark Dasilva is a 77 yo male presenting to [facility] with the feeling of his left ear being plugged for the past few weeks, denying any pain. After clinical examination and irrigation of his ears, he will be discharged home with bilateral cerumen impaction with appropriate instructions and follow up. - Differential Dx/Diagnosis Differential Diagnosis/HQI/PQRI: Cerumen Impaction, Otitis Externa, Otitis Media Provider Diagnoses: bilateral cerumen impaction Discharge - Discharge Plan Condition: Stable Disposition: HOME Patient Education Materials: Cerumen Impaction (ED) Referrals: Sai Gibson MD [Primary Care Provider] - If Needed Additional Instructions: Please follow up with your primary care physician regarding your visit to urgent care today. We recommend using Debrox weekly to prevent cerumen build up in your ears. Return to urgent care or the emergency department with any new or recurring symptoms. The documentation as recorded by the lino baez Timothy accurately reflects the service I personally performed and the decisions made by , Francis Denney MD.
== END 2017-03-16 11:27 | disposition home or self-care (01) ==
LOC: UCEAST 09:30
DX: H61.23 Impacted cerumen, bilateral (principal); Z95.2 Presence of prosthetic heart valve; I25.10 Atherosclerotic heart disease of native coronary artery without angina pectoris; I51.7 Cardiomegaly; I47.1 Supraventricular tachycardia
CPT/HCPCS: 99213; G0463

== ENCOUNTER 2017-07-05 08:54 | Observation (INO) | payer MEDICARE, BC ==
[2017-07-05] MEDS ORDERED: NS 0.9% 1000 ML* 1,000 ML IV ONE (09:20)
--- NOTE | 2017-07-05 09:36 | RAD ---
INDICATION: Atrial fibrillation COMPARISON: None. TECHNIQUE: Single AP portable view of the chest was obtained. FINDINGS: Image quality is compromised due to the relative inferiority of a portable chest x-ray. Most recent comparison chest x-rays dated September 24, 2016. Since the prior chest x-ray there has been interval replacement of the prosthetic aortic valve. The heart and mediastinum exhibit normal size and contour. The lungs are grossly clear. There is been interval appearance of right costophrenic angle blunting. Visualized bones are normal for the patient's age. IMPRESSION: Interval appearance of right costophrenic angle blunting could be development of a small right-sided pleural effusion relative to the most recent September 2016 chest x-ray.
[2017-07-05 09:48] LABS: Hematocrit 44 % (42-52); Hemoglobin 15.2 g/dl (14.0-18.0); Mean Corpuscular HGB Conc 34 g/dl (31-36); Mean Corpuscular Hemoglobin 33 pg (27-31); Mean Corpuscular Volume 95 fL (80-94); Mean Platelet Volume 8 um3 (7.4-10.4); Red Blood Count 4.67 10^6/ul (4.0-5.4); Red Cell Distribution Width 16 % (10.5-15); White Blood Count 5.1 10^3/ul (3.5-10.8)
[2017-07-05 10:00] LABS: Albumin 3.8 g/dL (3.2-5.2); BUN/Creatinine Ratio 15.2 (8-20); Calcium 9.5 mg/dL (8.6-10.3); EGFR African American 103.1 (>60); EGFR Non-African American 80.2 (>60); Globulin 3.2 g/dL (2-4); Potassium 4.1 mmol/L (3.5-5.0)
[2017-07-05 10:05] LABS: Troponin I 0.04 ng/mL (<0.04)
[2017-07-05 10:28] LABS: TSH (Thyroid Stimulating Horm) 5.13 mcIU/mL (0.34-5.60)
[2017-07-05] MEDS ORDERED: Amiodarone TAB* 400 MG PO ONE (11:48)
[2017-07-05] MEDS ORDERED: Amiodarone TAB* 200 MG ONE (12:17)
[2017-07-05 12:24] LABS: Troponin I 0.05 ng/mL (<0.04)
[2017-07-05] MEDS: [UNRECOGNIZED DRUG - OTHER] PERIPH SCH ×2 (12:40→20:44)
[2017-07-05 14:10] LABS: Urine Bilirubin Negative (Negative); Urine Glucose Negative (Negative); Urine Nitrite Negative (Negative)
[2017-07-05] MEDS: Metoprolol Tartrate TAB* 25 MG PO SCH ×2 (14:42→20:45)
--- NOTE | 2017-07-05 15:52 | ED ---
Antonio Stone Abhishek, scribed for Richi Posada MD on 07/05/17 at 0926 . Palpitations / Dysrhythmia - HPI Summary HPI Summary: This patient is a 77 year old M presenting to [facility] accompanied by female with a chief complaint of palpitation since yesterday morning. Pt states his pulse rate is gradually increasing from baseline (approximately 60 bpm). The patient rates the pain 0/10 in severity. Symptoms aggravated by nothing. Symptoms alleviated by nothing. Patient denies SOB, CP, dizziness, and edema on LE. Pt also reports taking the following blood thinner(s): Xarelto. - History of Current Complaint Chief Complaint: EDDysrhythmPalp Time Seen by Provider: 07/05/17 09:06 Hx Obtained From: Patient Onset/Duration: Gradual Onset, Lasting Days - since yesterday, Still Present Timing: Constant Aggravating: Nothing Alleviating: Nothing - Allergy/Home Medications Allergies/Adverse Reactions: Allergies Allergy/AdvReac Type Severity Reaction Status Date / Time Flu Virus Vaccine Allergy Intermediate See Comment Verified 05/01/17 08:40 Lisinopril Allergy See Comment Verified 05/01/17 08:40 Spironolactone Allergy See Comment Verified 05/01/17 08:40 Home Medications: Home Medications Aspirin EC TAB* 81 mg PO DAILY 07/05/17 [History Confirmed 07/05/17] Pro [place] 1,280 mg PO DAILY 07/05/17 [History Confirmed 07/05/17] Spectromin Chelates 1 tab PO DAILY 07/05/17 [History Confirmed 07/05/17] PMH/Surg Hx/FS Hx/Imm Hx Endocrine/Hematology History: Denies: Hx Diabetes, Hx Thyroid Disease Cardiovascular History: Reports: Hx Cardiomegaly, Hx Coronary Artery Disease, 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, Other Cardiovascular Problems/ Disorders - ATRIAL FLUTTER,PAROXYSMAL SUPRAVENTRICULAR TACHYCARDIA Denies: Hx Hypercholesterolemia, Hx Hypertension, Hx Myocardial Infarction, Hx Peripheral Vascular Disease Respiratory History: Denies: Hx Asthma, Hx Chronic Obstructive Pulmonary Disease (COPD) GI History: Denies: Hx Ulcer History: Denies: Other Problems/Disorders Musculoskeletal History: Reports: Other Musculoskeletal History - see surgeries Denies: Hx Arthritis, Hx Rheumatoid Arthritis, Hx Osteoporosis Sensory History: Reports: Hx Contacts or Glasses - WEARS GLASSES Denies: Hx Cataracts, Hx Glaucoma, Hx Hearing Aid Opthamlomology History: Reports: Hx Contacts or Glasses - WEARS GLASSES Denies: Hx Cataracts, Hx Glaucoma Neurological History: Denies: Hx Headaches, Hx Seizures, Hx Transient Ischemic Attacks (TIA) Psychiatric History: Denies: Hx Anxiety, Hx Depression - Surgical History Surgery Procedure, Year, and Place: Knee Replacements ,06. bilat shoulder surgery. AVR / MVR. cardiac valve replacement Hx Anesthesia Reactions: No Infectious Disease History: No Infectious Disease History: Denies: Hx Hepatitis, Hx Human Immunodeficiency Virus (HIV), Hx of Known/ Suspected MRSA, Hx Shingles, Hx Tuberculosis, Traveled Outside the [place] in Last 30 Days Comment Only: Hx Clostridium Difficile - exposed to Cdiff - Family History Known Family History: Positive: Cardiac Disease Negative: Diabetes Family History: Denies FHx anesthesia reaction - Social History Alcohol Use: None Alcohol Amount: 1 BEER EVERY 4-6 MONTHS Hx Substance Use: No Substance Use Type: Reports: None Hx Tobacco Use: No Smoking Status (MU): Never Smoked Tobacco Have You Smoked in the Last Year: No Review of Systems Positive: Fatigue Eyes: Negative ENT: Negative Positive: Palpitations. Negative: Chest Pain Negative: Shortness Of Breath Gastrointestinal: Negative Genitourinary: Negative Negative: Edema Skin: Negative Negative: Headache Psychological: Normal All Other Systems Reviewed And Are Negative: Yes Physical Exam - Summary Physical Exam Summary: VITAL SIGNS: Reviewed. GENERAL: ~Patient is a well-developed and nourished (MALE) who is lying comfortable in the stretcher. ~Patient is not in any acute respiratory distress. HEAD AND FACE: No signs of trauma. ~No ecchymosis, hematomas or skull depressions. No sinus tenderness. EYES: PERRLA, EOMI x 2, No injected conjunctiva, no nystagmus. EARS: Hearing grossly intact. Ear canals and tympanic membranes are within normal limits. MOUTH: Oropharynx within normal limits. NECK: Supple, trachea is midline, no adenopathy, no JVD, no carotid bruit, no c- spine tenderness, neck with full ROM. CHEST: Irregular rate and rhythm LUNGS: Clear to auscultation bilaterally. No wheezing or crackles. CVS: Regular rate and rhythm, S1 and S2 present, no murmurs or gallops appreciated. ABDOMEN: Soft, non-tender. No signs of distention. No rebound no guarding, and no masses palpated. Bowel sounds are normal. EXTREMITIES: FROM in all major joints, no edema, no cyanosis or clubbing. NEURO: Alert and oriented x 3. No acute neurological deficits. Speech is normal and follows commands. SKIN: Dry and warm Triage Information Reviewed: Yes Vital Signs On Initial Exam: Initial Vitals Temp Pulse Resp BP Pulse Ox 98.8 F 144 14 103/71 97 07/05/17 08:58 07/05/17 08:58 07/05/17 08:58 07/05/17 08:58 07/05/17 08:58 Vital Signs Reviewed: Yes Diagnostics - Vital Signs Vital Signs Temp Pulse Resp BP Pulse Ox 07/05/17 08:58 98.8 F 144 14 103/71 97 - Laboratory Lab Results: Lab Results 07/05/17 07/05/17 07/05/17 Range/Units 09:20 09:20 09:20 WBC 5.1 (3.5-10.8) 10^3/ul RBC 4.67 (4.0-5.4) 10^6/ul Hgb 15.2 (14.0-18.0) g/dl Hct 44 (42-52) % MCV 95 H (80-94) fL MCH 33 H (27-31) pg MCHC 34 (31-36) g/dl RDW 16 H (10.5-15) % Plt Count 171 (150-450) 10^3/ul MPV 8 (7.4-10.4) um3 Neut % (Auto) 61.8 (38-83) % Lymph % (Auto) 23.8 L (25-47) % Hardy % (Auto) 9.3 H (1-9) % Eos % (Auto) 4.5 (0-6) % Baso % (Auto) 0.6 (0-2) % Absolute Neuts (auto) 3.1 (1.5-7.7) 10^3/ul Absolute Lymphs (auto) 1.2 (1.0-4.8) 10^3/ul Absolute Monos (auto) 0.5 (0-0.8) 10^3/ul Absolute Eos (auto) 0.2 (0-0.6) 10^3/ul Absolute Basos (auto) 0 (0-0.2) 10^3/ul Absolute Nucleated RBC 0 10^3/ul Nucleated RBC % 0 INR (Anticoag Therapy) 1.26 H (0.89-1.11) APTT 33.3 (26.0-36.3) seconds Sodium (133-145) mmol/L Potassium (3.5-5.0) mmol/L Chloride (101-111) mmol/L Carbon Dioxide (22-32) mmol/L Anion Gap (2-11) mmol/L BUN (6-24) mg/dL Creatinine (0.67-1.17) mg/dL Est GFR ( Amer) (>60) Est GFR (Non-Af Amer) (>60) BUN/Creatinine Ratio (8-20) Glucose (70-100) mg/dL Calcium (8.6-10.3) mg/dL Total Bilirubin (0.2-1.0) mg/dL AST (13-39) U/L ALT (7-52) U/L Alkaline Phosphatase (34-104) U/L Total Creatine Kinase (10-223) U/L Troponin I (<0.04) ng/mL B-Natriuretic Peptide 514 H ( - 100) pg/mL Total Protein (6.4-8.9) g/dL Albumin (3.2-5.2) g/dL Globulin (2-4) g/dL Albumin/Globulin Ratio (1-3) TSH (0.34-5.60) mcIU/mL 07/05/17 Range/Units 09:20 WBC (3.5-10.8) 10^3/ul RBC (4.0-5.4) 10^6/ul Hgb (14.0-18.0) g/dl Hct (42-52) % MCV (80-94) fL MCH (27-31) pg MCHC (31-36) g/dl RDW (10.5-15) % Plt Count (150-450) 10^3/ul MPV (7.4-10.4) um3 Neut % (Auto) (38-83) % Lymph % (Auto) (25-47) % Hardy % (Auto) (1-9) % Eos % (Auto) (0-6) % Baso % (Auto) (0-2) % Absolute Neuts (auto) (1.5-7.7) 10^3/ul Absolute Lymphs (auto) (1.0-4.8) 10^3/ul Absolute Monos (auto) (0-0.8) 10^3/ul Absolute Eos (auto) (0-0.6) 10^3/ul Absolute Basos (auto) (0-0.2) 10^3/ul Absolute Nucleated RBC 10^3/ul Nucleated RBC % INR (Anticoag Therapy) (0.89-1.11) APTT (26.0-36.3) seconds Sodium 135 (133-145) mmol/L Potassium 4.1 (3.5-5.0) mmol/L Chloride 105 (101-111) mmol/L Carbon Dioxide 23 (22-32) mmol/L Anion Gap 7 (2-11) mmol/L BUN 14 (6-24) mg/dL Creatinine 0.92 (0.67-1.17) mg/dL Est GFR ( Amer) 103.1 (>60) Est GFR (Non-Af Amer) 80.2 (>60) BUN/Creatinine Ratio 15.2 (8-20) Glucose 121 H (70-100) mg/dL Calcium 9.5 (8.6-10.3) mg/dL Total Bilirubin 1.00 (0.2-1.0) mg/dL AST 32 (13-39) U/L ALT 30 (7-52) U/L Alkaline Phosphatase 86 (34-104) U/L Total Creatine Kinase 58 (10-223) U/L Troponin I 0.04 H* (<0.04) ng/mL B-Natriuretic Peptide ( - 100) pg/mL Total Protein 7.0 (6.4-8.9) g/dL Albumin 3.8 (3.2-5.2) g/dL Globulin 3.2 (2-4) g/dL Albumin/Globulin Ratio 1.2 (1-3) TSH 5.13 (0.34-5.60) mcIU/mL Result Diagrams: 07/05/17 09:20 07/05/17 09:20 Lab Statement: Any lab studies that have been ordered have been reviewed, and results considered in the medical decision making process. - Radiology Chest x-ray Radiology Interpretation Completed By: Radiologist - CXR reveals, per radiologist, Interval appearance of right costophrenic angle blunting could be development of a small right-sided pleural effusion relative to the most recent September 2016 chest x-ray. ED physician has reviewed this radiology report and agrees. - EKG 0910 EKG Interpretation: An EKG at 0910 reveals atrial flutter with 132 bpm, and normal axis Course/Dx - Course Assessment/Plan: In the ED course an IV access was obtained. Patient was placed in a cardiac tech. Patient was started with IV fluids since his BP is 104/ 62. I discussed the case with Dr. Jain and recommends to hold the Cardizem at this time until she consult for the patient. He is asymptomatic and lying comfortable in the stretcher. HR is ranging between 118 to 138 BPM. Labs without any significant abnormality except for glucose of 121 and BNP 514. Troponin #1: 0.04. EKG shows a Atrial flutter with RVR. CXR impression: Small right pleural effusion. Dr. Jain consulted for the patient and agreed to admit patient to her services. Patient is hemodynamically stable and A+O x 3. - Diagnoses Differential Diagnosis/HQI/PQRI: Positive: Paroxymal SVT, V-Tach, Other - Atrial fib, atrial flutter. Provider Diagnoses: Atrial flutter with rapid ventricular response Discharge - Discharge Plan Condition: Stable Disposition: ADMITTED TO [facility] documentation as recorded by the Antonio baez Abhishek accurately reflects the service I personally performed and the decisions made by , Richi Posada MD.
[2017-07-05] MEDS ORDERED: Rivaroxaban TAB(*) 20 MG TAB PO SCH (18:00)
[2017-07-05] MEDS ORDERED: CMC:Epleronone (NF) 25 MG TAB PO SCH (21:00)
[2017-07-05] MEDS ORDERED: Carvedilol TAB* 3.125 MG PO SCH (21:00)
--- NOTE | 2017-07-05 21:03 | HP ---
CC: Dr. Sai Gibson; Dr. Reg Glover * ADMISSION HISTORY AND PHYSICAL: DATE OF ADMISSION: 07/05/17 HISTORY OF PRESENT ILLNESS: Mr. Dasilva is a 77-year-old gentleman with a long- standing cardiomyopathy, history of valvular disease, mitral and aortic disease with a complex past cardiac history, who underwent a TAVR within his prior surgical aortic valve replacement on 06/24/17. For 2 weeks prior to the procedure, the patient had been in atrial fibrillation. He underwent electrical cardioversion during the procedure and did well until yesterday. The patient had been asked on discharge to check his blood pressure and pulse rate daily and noted when he awoke yesterday morning that his heart rates were rapid. He continued to check these throughout the day and they were predominantly tachycardic, and this morning, when it persisted he called for advice. The patient states that he feels a bit weak since the heart rate went up, but denies chest pain or pressure. His breathing is overall improved since the TAVR. The patient is unaware of palpitations or racing of the heart and only notes that his heart is irregular because of checking his pulse. The patient was seen in the office by Malena Gracia, physician resident care assistant, on , and he had some mild edema for which he took 1 extra dose of Lasix on Thursday, 4 days prior to admission. He has otherwise been on his usual medications. He had some cough yesterday morning and does not drink alcohol and no other adjustments in medication. PAST MEDICAL HISTORY: 1. Aortic insufficiency, status post aortic valve replacement, 2010, Dr. Doaln. 2. Mitral valve prolapse with mitral insufficiency status post repair at the time of aortic valve replacement, 2010. 3. Single-vessel coronary artery disease, status post bypass surgery to the LAD , April 2011. 4. Mild dyslipidemia. 5. Degenerative arthritis. 6. Benign prostatic hypertrophy. 7. Cardiomyopathy, long standing, felt to be primarily valvular in origin. 8. Ventricular tachycardia, with ICD. 9. Dysentery in [place], age 15. 10. Dyslipidemia (not on statins per the patient's preference). 11. Hypertension. 12. Paroxysmal AFib. 13. Rheumatoid arthritis. PAST SURGICAL HISTORY: Includes: 1. Bypass surgery, aortic valve replacement and mitral valve repair, 06/24/11, [facility], Dr. Dolan. 2. TURP, October of 2011. 3. Eye surgery, 2016. 4. [place] tooth extraction. 5. Shoulder surgery, 2007 and 2008. 6. Bilateral knee replacements, 2004 and 2005. 7. TAVR, 06/24/17, (Dr. Hernandez at [facility]) with electrical cardioversion ZEE guided. 8. ICD implantation. OUTPATIENT MEDICATIONS: Include: 1. Amiodarone 100 mg a day. 2. Coreg 3.125 mg daily. 3. Xarelto 20 mg daily. 4. Vasculine 1 tab daily. 5. Coenzyme Q 50 mg a day. 6. L-carnitine 500 mg b.i.d. 7. MultiVites 1 daily. 8. Probiotic 1 daily. 9. Vitamin C 400 mg a day. 10. Eplerenone 25 mg a day. 11. Cardio-Plus 650 two tabs daily. 12. Betafood 1 tab daily. 13. Glucosamine/chondroitin 500 complex 2 tabs daily. 14. Vitamin D b.i.d. 15. Complex 2700 mg daily. 16. Ubiquinol 100 mg a day. 17. Spectramin Chelate 1 daily. ALLERGIES: Include LISINOPRIL, SPIRONOLACTONE, and FLU VACCINE. FAMILY HISTORY: Significant for his father at age 91 with history of prostate cancer and dementia and mother of a stroke with history of dyslipidemia, she at 89 years. SOCIAL HISTORY: The patient is , retired from [employer], lives with his , never smoked, no alcohol intake. REVIEW OF SYSTEMS: Fourteen-point review of systems was negative for orthopnea. He does have some nocturia. He denies fevers, chills, sweats. He denies any change in bowel or bladder habits. Again, breathing is overall better. No alcohol intake. He had some coffee yesterday morning, which he does not usually have. Leg swelling improved following Lasix on Thursday, it did not recur. No recent extra salt in his food or nonsteroidals. He has been taking all his regular medications. They did travel in April to [place] on organized trip and cruise, at that time became winded and that has led to his workup for his aortic valve and replacement, but no travel or more recent problems. According to the patient, he held his Xarelto 2 days prior to the procedure, resumed at the night of the procedure following his cardioversion. PHYSICAL EXAMINATION GENERAL APPEARANCE: Lean, elderly gentleman, seated at 80 degrees in no acute distress. VITAL SIGNS: The patient is 6 feet 2 inches, weighs 188 pounds with a BMI of 24. Blood pressure 102/85, pulse is AFib in the 100s, respiratory rate 18, oxygen saturation 97% on room air. HEENT: Pupils are equal and round. Mucous membranes were moist. NECK: Without increased JVP. Palpable carotid pulses without audible bruits. LUNGS: Breath sounds are clear without wheezes, rales, or rhonchi. Good air movement. CORONARY: At Erb's point, there is a very crisp heart sound in the right upper sternal border. S1 and S2 irregularly irregular but tachycardic. Trace systolic murmur heard and no diastolic murmur heard. ABDOMEN: Flat, nontender. No hepatosplenomegaly. LOWER EXTREMITIES: Warm and free of edema. NEUROLOGIC: Awake, alert, and oriented to person, place and time. He is a little hard of hearing. Cranial nerves are otherwise intact. Grossly normal sensory and motor function in the upper and lower extremities. In the gurney, gait not checked. PSYCHOLOGIC: Pleasant and cooperative. SKIN: Warm and dry without rashes and no appreciable cyanosis. DIAGNOSTIC STUDIES/LAB DATA: A 12 lead ECG done in the emergency department confirmed that he was in probable atrial flutter with a ventricular rate of 132 beats a minute (versus AFib) with PVCs. Chest x-ray by report showed splinting of the right costophrenic angle, possible effusion. White count 5.1, hemoglobin 15.2, hematocrit 44, platelets 171. Sodium 135, potassium 4.1, chloride 105, bicarb 23, BUN 14, creatinine 0.92, glucose 121. Troponin #1 0.04, troponin #2 0.05. BNP of 514. TSH 5.13. Magnesium 2.0. PROCEDURE REVIEWED: 1. TAVR procedure from 06/24/17. 2. Left heart cath revealed 70% LAD occlusion and minimal plaquing in all other areas, COTTRELL to the LAD distal to the occlusion was not engaged, but competitive filling was seen within the LAD. 3. ZEE was performed during the procedure showed no perivalvular regurgitation and LVEDP of 11 post-implant mean gradient across the aortic valve is 3 mmHg and aortic valve area by ZEE estimated at 1.6 sq. cm. The left atrial appendage was not commented on. Procedures: 1. The patient described balloon rupture of the existing prosthetic valve and implantation of TIFFANIE 3 29-mm valve. 2. Electrical cardioversion done during this procedure. CONCLUSIONS: Mark Dasilva is a 77-year-old gentleman with a history of aortic and mitral insufficiency. He went underwent aortic valve replacement and mitral valve repair in 2010 as well as single-vessel bypass for single-vessel LAD disease, who then presented in April with congestive heart failure and his prosthetic aortic valve was found to be significantly stenosed. The patient is now 10 days status post TAVR within the surgical prosthetic valve and electrical cardioversion of the day of the TAVR with no evidence of progression of his atherosclerotic disease and good arterial graft function. The patient is now in recurrent atrial fib/flutter without obvious precipitating factors other than his age, valvular, and ventricular heart disease. Issues include cardioversion and I do feel he should undergo cardioversion to optimize cardiac output, especially considering his low ejection fraction. Cardioversion was felt to be safe at the time of the TAVR and according to the patient and his Xarelto is initiated night of the TAVR. There is an argument for cardioverting him without transesophageal echo guidance, but he has eaten over the weekend and so as it is the weekend with limited resources for nurses and conscious sedation, we will admit him for observation and do this the next day. The other issue is that he is on very low dose of amiodarone, he states on higher dose he got jittery. I did review old lab data in the hospital system and did not see evidence of abnormal thyroid or liver function studies. So, in the short-term, I am going to increase his amiodarone dose and did discuss these issues with the patient and his , stating that there is some increase risk of AFib, reji- procedurally that may or may not persist down the road; he is understanding. Electrolytes look good, will continue to avoid alcohol and cut out caffeine altogether at least for now. Regarding the patient's cardiomyopathy and tendency towards congestive heart failure, based on x-ray and BNP, may be some very mild congestive heart failure and this could certainly have contributed to his current presentation shortly after admission rates got higher so for now I am going to add metoprolol to the patient's Coreg for better rate control, it may be that when he is going back and forth between atrial fibrillation and atrial flutter and his rates may be higher in the flutter as he has the defibrillator. With the patient's ICD, we do not have to worry about the risk of bradycardia. I also discussed the patient's coronary disease and cholesterol lowering, he states that he has elected not to undergo statins because of perceived risk of side effects and he is aware that his recent cardiac catheterization earlier this month did not show progression in his atherosclerosis. We will leave him off statin and other cholesterol-lowering medications for now and this issue can be followed up as an outpatient. Thank you for allowing me to assist in this nice gentleman's care. [id number]/[facility] #: [id number] JOHN
[2017-07-05] MEDS: GLUCOSAMINE CHONDROITIN PO SCH (22:27)
[2017-07-06] MEDS: [UNRECOGNIZED DRUG - OTHER] PERIPH SCH ×2 (04:03→13:46)
[2017-07-06 05:07] LABS: Albumin 3.4 g/dL (3.2-5.2); BUN/Creatinine Ratio 16.7 (8-20); Calcium 8.7 mg/dL (8.6-10.3); EGFR African American 114.6 (>60); EGFR Non-African American 89.1 (>60); Globulin 2.6 g/dL (2-4); Total Bilirubin 0.8 mg/dL (0.2-1.0)
[2017-07-06] MEDS: GLUCOSAMINE CHONDROITIN PO SCH (08:37)
[2017-07-06] MEDS: Metoprolol Tartrate TAB* 25 MG PO SCH (08:45)
[2017-07-06] MEDS ORDERED: Naloxone* 0.4 MG/ML 1 ML VIAL ONE (11:08)
[2017-07-06] MEDS ORDERED: fentaNYL* 50 MCG/ML 2 ML VIAL (100 MCG VIAL) ONE (11:08)
[2017-07-06] MEDS ORDERED: Flumazenil* 0.1 MG/ML 5 ML MDV ONE (11:08)
[2017-07-06] MEDS ORDERED: Midazolam* 1 MG/ML 10 ML VIAL (10 MG) ONE (11:09)
--- NOTE | 2017-07-06 12:59 | CARD ---
CC: Dr. Reg Glover; Dr. Sai Gibson * CARDIOVERSION NOTE: DATE OF STUDY: 07/06/17 - ROOM #438 PROCEDURE: Cardioversion. INDICATION: Atrial fibrillation. HISTORY: The patient is a 77-year-old gentleman with a history of atrial arrhythmias, history of a recent aortic valve replacement earlier this month. The patient noted an irregular heart beat over the weekend and was admitted to the hospital with atrial fibrillation. Cardioversion was recommended. PROCEDURE IN DETAIL: The patient was in a fasting state. Informed consent had been obtained prior to the procedure. All labs were reviewed. The had been on anticoagulation since his aortic valve replacement. The patient was given 4 mg of Versed and 50 mcg of fentanyl for conscious sedation. The patient was cardioverted with 150 joules of synchronized biphasic energy. The patient converted to normal sinus rhythm. The patient tolerated the procedure well and no complications. The patient will be discharged home today. Recommendation is to increase his amiodarone to 200 mg a day. He will follow up with Dr. Glover. [id number]/[facility] #: [id number] [facility]
[2017-07-06 15:16] VITALS: BP 98/69
[2017-07-06] MEDS ORDERED: Aspirin EC Low Dose* 81 MG TAB.EC PO SCH (21:00)
[2017-07-06] MEDS ORDERED: Amiodarone TAB* 200 MG PO SCH (21:00)
--- NOTE | 2017-07-07 06:17 | DS ---
CC: Dr. Glover; Dr. Sai Gibson DISCHARGE SUMMARY: DATE OF ADMISSION: DATE OF DISCHARGE: 07/06/17 INDICATION FOR ADMISSION: Atrial fibrillation. Please see Dr. Jain's admission history and physical for details of his presentation. HISTORY OF PRESENT ILLNESS: The patient is a 77-year-old gentleman with a history of coronary artery disease, history of recent aortic valve replacement in earlier June, who came to the emergency r oom because of atrial fibrillation. The patient states that he was doing well after his open heart s urgery, not having any symptoms and then on the day of admission started noticing his heart rate was elevated into the 90s where previously been in the 60s and he was feeling slightly more short of misty th. On arriving in the emergency room, he was clearly in atrial fibrillation and was admitted for ob servation. SUMMARY OF HOSPITAL COURSE: The patient had no issues overnight. His heart rate was relatively well controlled. Average heart rate was 80 beats per minute. His laboratory studies were unremarkable. This morning, the patient underwent cardioversion to normal sinus rhythm without incidence. The sumit ent had no complaints. DISPOSITION: The patient will be discharged home. He will follow up with Dr. Glover as scheduled. DISCHARGE MEDICATIONS: 1. Amiodarone 200 mg a day up from his baseline 100 mg a day. 2. Coreg 3.125 mg a day. 3. Xarelto 20 mg a day. 4. Multiple supplements. 5. Eplerenone 25 mg a day. ALLERGIES: To LISINOPRIL, SPIRONOLACTONE. LABORATORY STUDIES: This morning, chemistries within norm al limits. BUN 14, creatinine 0.8. Peaked troponin 0.05. BNP is minimally elevated at 514. FOLLOWUP: The patient will follow up with Dr. Glover. [id number]/[facility] #: [id number]
== END 2017-07-06 15:00 | disposition home or self-care (01) ==
LOC: ED 08:54 → MEDTELE 11:39
PROVIDERS: ADMIT Specialist; ATTEND Specialist
DX: I48.0 Paroxysmal atrial fibrillation (principal); I25.10 Atherosclerotic heart disease of native coronary artery without angina pectoris; I10 Essential (primary) hypertension; Z95.1 Presence of aortocoronary bypass graft; E78.5 Hyperlipidemia, unspecified; N40.0 Benign prostatic hyperplasia without lower urinary tract symptoms; I42.9 Cardiomyopathy, unspecified; Z95.810 Presence of automatic (implantable) cardiac defibrillator; M06.9 Rheumatoid arthritis, unspecified; Z79.899 Other long term (current) drug therapy; Z95.2 Presence of prosthetic heart valve; Z79.01 Long term (current) use of anticoagulants; Z88.8 Allergy status to other drugs, medicaments and biological substances
CPT/HCPCS: 36415; 71010; 80053; 81003; 82550; 83735; 83880; 84443; 84484; 85025; 85610; 85730; 87641; 92960; 93005; 99156; 99157; 99284; A9270-GY; G0378; J2250; J2310; J3010

== ENCOUNTER 2018-07-14 10:25 | Day surgery (SDC) | payer MEDICARE, BC ==
[~2018-07-14 10:25] MED LIST: Buffered Lidocaine 0.9% SYRIN* 5 ML/SYR SYRINGE INTRADERM ONE
[2018-07-14] MEDS ORDERED: Phenylephrine 2.5% OPTH.SOL* 2 ML BTL ONE (10:34)
[2018-07-14] MEDS ORDERED: Proparacaine 0.5% OPHTH.SOL* 15 ML BTL ONE (10:34)
[2018-07-14] MEDS ORDERED: Neomycin/Polymy/Dex OPTH.SUSP* MAXITROL 0.1% 5 ML ONE (10:34)
[2018-07-14] MEDS ORDERED: Lidocaine 2% EPI 1:200000 MPF*10-20 ML VIAL ONE (10:34)
[2018-07-14] MEDS ORDERED: acetaZOLAMIDE TAB* 250 MG ONE (10:34)
[2018-07-14] MEDS ORDERED: Lidocaine 1%* 5 ML VIAL ONE (10:34)
[2018-07-14] MEDS ORDERED: Povidone Iodine 5% OPTH* 30 ML BTL ONE (10:34)
[2018-07-14] MEDS ORDERED: Cyclopentolate 1% OPTH.SOL* 2 ML BTL ONE (10:34)
[2018-07-14] MEDS ORDERED: Ketorolac 0.5% OPHTH (NF) 0.5 % 5 ML BTL ONE (10:34)
[2018-07-14] MEDS ORDERED: Midazolam* 1 MG/ML 2 ML VIAL (2 MG) ONE (13:21)
[2018-07-14 13:47] VITALS: BP 100/54
--- NOTE | 2018-07-15 07:03 | OP ---
DATE OF OPERATION: 07/14/18 [facility] DATE OF : 44 SURGEON: Sai Stark M.D. PREOPERATIVE DIAGNOSIS: Cataract, left eye. POSTOPERATIVE DIAGNOSIS: Cataract, left eye. OPERATIVE PROCEDURE: Extracapsular cataract extraction with intraocular lens implant left eye. DESCRIPTION OF PROCEDURE: The patient was brought to the operating room after being given 1/2% Alcaine with epinephrine drops in the preoperative area. The eye was prepped and draped in the usual sterile fashion. Sterile drape and eyelid speculum were placed. Again, topical 1/2% Alcaine with epinephrine was given. A paracentesis incision was made at the o'clock position with the No.75 blade. Clear cornea incision 2.2 x 2.2-mm was created at the o 'clock position starting at the anterior limbus using the 2.2-mm keratome. The anterior chamber was irrigated with 0.4 mL of 1% non-preservative intracameral lidocaine and filled with DisCoVisc. A capsulorrhexis was completed using the cystotome and the Utrata forceps. Hydrodissection was performed with balanced salt solution. The lens nucleus was removed with the Phacoemulsification handpiece without incident. Cortex was removed with the irrigation-aspiration handpiece. The capsular bag was re-inflated using DisCoVisc and an SN60WF 17.5 implant was inserted with the shooter. The irrigation-aspiration handpiece was used to remove all residual DisCoVisc. The eye was refilled with balanced salt solution and the wound checked and found to be watertight. Topical Maxitrol drops were given. [id number]/[facility] #: [id number] [facility]
== END 2018-07-14 13:50 | disposition home or self-care (01) ==
LOC: OREAST 10:25
PROVIDERS: ATTEND Specialist
DX: H25.12 Age-related nuclear cataract, left eye (principal); H43.813 Vitreous degeneration, bilateral; Z95.2 Presence of prosthetic heart valve; Z79.01 Long term (current) use of anticoagulants; Z95.0 Presence of cardiac pacemaker; I48.91 Unspecified atrial fibrillation; I42.9 Cardiomyopathy, unspecified
CPT/HCPCS: A9270-GY; J2250; V2632

== ENCOUNTER 2018-07-21 08:47 | Day surgery (SDC) | payer MEDICARE, BC ==
[~2018-07-21 08:47] MED LIST changes: +Acetaminophen TAB* 325 MG PO PRN
[2018-07-21] MEDS ORDERED: Midazolam* 1 MG/ML 2 ML VIAL (2 MG) ONE ×2 (11:12→11:25)
[2018-07-21] MEDS ORDERED: Lidocaine 1%* 5 ML VIAL ONE (11:41)
[2018-07-21] MEDS ORDERED: Proparacaine 0.5% OPHTH.SOL* 15 ML BTL ONE (11:41)
[2018-07-21] MEDS ORDERED: Povidone Iodine 5% OPTH* 30 ML BTL ONE (11:41)
[2018-07-21] MEDS ORDERED: acetaZOLAMIDE TAB* 250 MG ONE (11:41)
[2018-07-21] MEDS ORDERED: Lidocaine 2% EPI 1:200000 MPF*10-20 ML VIAL ONE (11:41)
[2018-07-21] MEDS ORDERED: Ketorolac 0.5% OPHTH (NF) 0.5 % 5 ML BTL ONE (11:41)
[2018-07-21] MEDS ORDERED: Phenylephrine 2.5% OPTH.SOL* 2 ML BTL ONE (11:41)
[2018-07-21] MEDS ORDERED: Cyclopentolate 1% OPTH.SOL* 2 ML BTL ONE (11:41)
[2018-07-21] MEDS ORDERED: Neomycin/Polymy/Dex OPTH.SUSP* MAXITROL 0.1% 5 ML ONE (11:41)
[2018-07-21 11:45] VITALS: BP 111/62
--- NOTE | 2018-07-21 16:41 | OP ---
DATE OF OPERATION: 07/21/2018 - [facility] DATE OF : 1940. SURGEON: Sai Stark M.D. PREOPERATIVE DIAGNOSIS: Cataract right eye. POSTOPERATIVE DIAGNOSIS: Cataract right eye. OPERATIVE PROCEDURE: Extracapsular cataract extraction with intraocular lens implant right eye. DESCRIPTION OF PROCEDURE: The patient was brought to the operating room after being given 1/2% Alcaine with epinephrine drops in the preoperative area. The eye was prepped and draped in the usual sterile fashion. Sterile drape and eyelid speculum were placed. Again, topical 1/2% Alcaine with epinephrine was given. A paracentesis incision was made at the 9 o'clock position with the No.75 blade. Clear cornea incision 2.2 x 2.2-mm was created at the 12 o'clock position starting at the anterior limbus using the 2.2-mm keratome. The anterior chamber was irrigated with 0.4 mL of 1% non-preservative intracameral lidocaine and filled with DisCoVisc. A capsulorrhexis was completed using the cystotome and the Utrata forceps. Hydrodissection was performed with balanced salt solution. The lens nucleus was removed with the Phacoemulsification handpiece without incident. Cortex was removed with the irrigation-aspiration handpiece. The capsular bag was re-inflated using DisCoVisc and an SN60WF 17.5 implant was inserted with the shooter. The irrigation-aspiration handpiece was used to remove all residual DisCoVisc. The eye was refilled with balanced salt solution and the wound checked and found to be watertight. Topical Maxitrol drops were given. [id number]/[facility] #: [id number] [facility]
== END 2018-07-21 11:45 | disposition home or self-care (01) ==
LOC: OREAST 08:47
PROVIDERS: ATTEND Specialist
DX: H25.11 Age-related nuclear cataract, right eye (principal); H43.813 Vitreous degeneration, bilateral; I48.91 Unspecified atrial fibrillation; Z79.01 Long term (current) use of anticoagulants
CPT/HCPCS: A9270-GY; J2250; V2632

== ENCOUNTER 2019-01-25 10:36 | Inpatient (IN) | payer MEDICARE, BC ==
[2019-01-25] MEDS ORDERED: NS 0.9% 1000 ML** 1,000 ML IV ONE (11:04)
[2019-01-25] MEDS ORDERED: Pantoprazole IV* 40 MG IV ONE (11:04)
--- NOTE | 2019-01-25 11:11 | ED ---
GI/ HPI - HPI Summary HPI Summary: This pt is a 78 y/o male presenting [place] [facility] [place] Dr. Glover for black stools since this morning and dizziness. Pt reports pt noticed he had very black stool this morning. He denies seeing any bright red blood. Pt denies any melena yesterday or prior to today. He states feeling dizziness as well and is cautious when he gets up or moves around. Pt reports dizziness seems to be worse after eating. Denies any pain, abd pain, chest pain, SOB, palpitations. His last colonoscopy was more than 10 years ago and states it was normal. Pt is on low dose of Xarelto for afib. He is also on Amiodarone. PMHx includes afib, TAVR 2 years ago in [place], [facility]. - History of Current Complaint Chief Complaint: EDGIBleed Time Seen by Provider: 01/25/19 10:45 Stated Complaint: POSSIBLE GI BLEED AND DIZZY PER PT Hx Obtained From: Patient Onset/Duration: Started Hours Ago, Still Present Timing: Lasting Hours Current Severity: Mild Pain Intensity: 0 - denies pain Associated Signs and Symptoms: Positive: Dizziness, Black Tarry Stool, Melena. Negative: Rectal Pain, Fever, Abdominal Pain, Chest Pain, Other: - NEG: SOB Aggravating Factor(s): Nothing Alleviating Factor(s): Nothing - Additional Pertinent History Primary Care Physician: GABBY - Allergy/Home Medications Allergies/Adverse Reactions: Allergies Allergy/AdvReac Type Severity Reaction Status Date / Time lisinopril Allergy Severe See Comment Verified 01/25/19 10:42 spironolactone Allergy Severe See Comment Verified 01/25/19 10:42 Influenza Virus Vaccines Allergy Intermediate See Comment Verified 01/25/19 16: 48 candesartan Allergy Dizziness Verified 01/25/19 10:43 sacubitril [From Entresto] Allergy Itching Verified 01/25/19 10:43 valsartan [From Entresto] Allergy Itching Verified 01/25/19 10:43 Home Medications: Home Medications Amiodarone TAB* [Cordarone TAB*] 200 mg PO MOTUTHFRSA 01/25/19 [History Confirmed 01/25/19] Ascorbic Acid [Vitamin C] 500 mg PO DAILY 01/25/19 [History Confirmed 01/25/19] Aspirin EC TAB* [Ecotrin EC Low Dose 81 MG*] 81 mg PO DAILY 01/25/19 [History Confirmed 01/25/19] Bacillus Coagulans [Ra Probiotic Gummies] 2 tab PO QPM 01/25/19 [History Confirmed 01/25/19] Betafood 2 tab PO DAILY 01/25/19 [History Confirmed 01/25/19] Cardioplus 1,300 mg PO DAILY 01/25/19 [History Confirmed 01/25/19] Carvedilol TAB* [Coreg TAB*] 4.6875 mg PO QAM 01/25/19 [History Confirmed ] Carvedilol TAB* [Coreg TAB*] 6.25 mg PO QPM 01/25/19 [History Confirmed 01/25/19 ] Eplerenone [Inspra] 25 mg PO DAILY 01/25/19 [History Confirmed 01/25/19] Essence Chamber Saw [place] 4 cap PO BID 01/25/19 [History Confirmed 01/25/19] Glucosam/Chond/Collagen/Hyalur [Glucosamine Chondroitin/C] 2 cap PO DAILY [History Confirmed 01/25/19] K Complex 2700 Mg 1 cap PO DAILY 01/25/19 [History Confirmed 01/25/19] Multivitamins/Minerals TAB* [Theragran/minerals TAB*] 1 tab PO DAILY 01/25/19 [ History Confirmed 01/25/19] Pro [place] D 1999 1 cap PO DAILY 01/25/19 [History Confirmed 01/25/19] Rivaroxaban TAB(*) [Xarelto 20 mg] 20 mg PO DAILY 01/25/19 [History Confirmed ] Saw/Vit E/Sod [place]/Lyc/Beta/Pyg [Complete Prostate Health] 2 tab PO BID 01/25/19 [History Confirmed 01/25/19] Ubiquinol 100 mg PO DAILY 01/25/19 [History Confirmed 01/25/19] Vitamin B Complex CAP* [B Complex CAP*] 1 cap PO 1200 01/25/19 [History Confirmed 01/25/19] PMH/Surg Hx/FS Hx/Imm Hx Endocrine/Hematology History: Denies: Hx Diabetes, Hx Thyroid Disease Cardiovascular History: Reports: Hx Cardiomegaly, Hx Congestive Heart Failure - 04/2017, Hx Coronary Artery Disease, Hx Pacemaker/ICD - [employer] [id number] - THIS IS NOT A MRI CONDITIONAL, Hx Syncope, 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, Other Cardiovascular Problems/Disorders - AORTIC VALVE REPLACE Denies: Hx Hypercholesterolemia, Hx Hypertension, Hx Myocardial Infarction, Hx Peripheral Vascular Disease Respiratory History: Denies: Hx Asthma, Hx Chronic Obstructive Pulmonary Disease (COPD) GI History: Denies: Hx Ulcer History: Denies: Other Problems/Disorders Musculoskeletal History: Reports: Other Musculoskeletal History - see surgeries Denies: Hx Arthritis, Hx Rheumatoid Arthritis, Hx Osteoporosis Sensory History: Reports: Hx Contacts or Glasses - WEARS GLASSES Denies: Hx Cataracts, Hx Glaucoma, Hx Hearing Aid Opthamlomology History: Reports: Hx Contacts or Glasses - WEARS GLASSES Denies: Hx Cataracts, Hx Glaucoma Neurological History: Denies: Hx Headaches, Hx Seizures, Hx Transient Ischemic Attacks (TIA) Psychiatric History: Denies: Hx Anxiety, Hx Depression - Cancer History Hx Chemotherapy: No - Surgical History Surgery Procedure, Year, and Place: [employer] [id number] PACEMAKER - IS NOT MR CONDITIONAL. Knee Replacements ,. bilat shoulder surgery. AVR / MVR. cardiac valve replacement Hx Anesthesia Reactions: No Infectious Disease History: No Infectious Disease History: Denies: Hx Hepatitis, Hx Human Immunodeficiency Virus (HIV), Hx of Known/ Suspected MRSA, Hx Shingles, Hx Tuberculosis, Traveled Outside the [place] in Last 30 Days Comment Only: Hx Clostridium Difficile - exposed to Cdiff - Family History Known Family History: Positive: Cardiac Disease Negative: Diabetes Family History: Denies FHx anesthesia reaction. Brother with leukemia. - Social History Alcohol Use: None Alcohol Amount: 1 BEER EVERY 4-6 MONTHS Hx Substance Use: No Substance Use Type: Reports: None Hx Tobacco Use: No Smoking Status (MU): Never Smoked Tobacco Have You Smoked in the Last Year: No Review of Systems Negative: Fever Negative: Palpitations, Chest Pain Negative: Shortness Of Breath Gastrointestinal: Other - POS: black stools Negative: Abdominal Pain Neurological: Other - POS: dizziness All Other Systems Reviewed And Are Negative: Yes Physical Exam - Summary Physical Exam Summary: VITAL SIGNS: Reviewed. GENERAL: Patient is a well-developed and nourished male who is lying comfortable in the stretcher. Patient is not in any acute respiratory distress. HEAD AND FACE: No signs of trauma. No ecchymosis, hematomas or skull depressions. No sinus tenderness. EYES: PERRLA, EOMI x 2, No injected conjunctiva, no nystagmus. EARS: Hearing grossly intact. Ear canals and tympanic membranes are within normal limits. MOUTH: Oropharynx within normal limits. NECK: Supple, trachea is midline, no adenopathy, no JVD, no carotid bruit, no c- spine tenderness, neck with full ROM. CHEST: Symmetric, no tenderness at palpation LUNGS: Clear to auscultation bilaterally. No wheezing or crackles. CVS: Regular rate and rhythm, S1 and S2 present, no gallops appreciated. Ejection systolic murmur. ABDOMEN: Soft, non-tender. No signs of distention. No rebound no guarding, and no masses palpated. Bowel sounds are normal. RECTAL EXAM: Female federal district clerk present, Carmencita Hawk RN. Exam shows melena. EXTREMITIES: FROM in all major joints, no edema, no cyanosis or clubbing. NEURO: Alert and oriented x 3. No acute neurological deficits. Speech is normal and follows commands. SKIN: Dry and warm. Patient is pale. Triage Information Reviewed: Yes Vital Signs On Initial Exam: Initial Vitals Temp Pulse Resp BP Pulse Ox 98 F 64 16 129/67 97 01/25/19 10:39 01/25/19 10:39 01/25/19 10:39 01/25/19 10:39 01/25/19 10:39 Vital Signs Reviewed: Yes Diagnostics - Vital Signs Vital Signs Temp Pulse Resp BP Pulse Ox 01/25/19 10:39 98 F 64 16 129/67 97 - Laboratory Result Diagrams: 01/25/19 11:12 01/25/19 11:12 Lab Statement: Any lab studies that have been ordered have been reviewed, and results considered in the medical decision making process. - EKG 11:11 Cardiac Rate: NL - at 60 bpm Summary of EKG Findings: Atrial paced rhythm at 60 bpm GIGU Course/Dx - Course Assessment/Plan: This pt is a 78 y/o male presenting to [facility] [place] by Dr. Glover for black stools since this morning and dizziness. Pt reports pt noticed he had very black stool this morning. He denies seeing any bright red blood. Pt denies any melena yesterday or prior to today. He states feeling dizziness as well and is cautious when he gets up or moves around. Pt reports dizziness seems to be worse after eating. Denies any pain, abd pain, chest pain, SOB, palpitations. His last colonoscopy was more than 10 years ago and states it was normal. Pt is on low dose of Xarelto for afib. He is also on Amiodarone. PMHx includes afib, TAVR 2 years ago in [place], pacemaker. 1- Atrial fibrillation on Xarelto. 2- Dyspnea. 3- UTI. 4- CAD. 5- Aortic valve supply. 6- V-tach. Blood work without any significant normality except for hemoglobin 11.3, hematocrit 32, BUN is 33, troponin 0.07, BNP is 244 total protein is 6. Occult blood is positive. In the ED course we obtained 2 IV accesses, IV fluids were given. Patient was also given Protonix. I discussed my physical exam, findings and test results with Dr. Islas from and he agrees to consult for this patient. I discussed my physical exam, findings and test results with Dr. Song from the hospitalist services and she agrees to admit patient to her services. Patient is hemodynamically stable, alert and oriented x 3. - Diagnoses Provider Diagnoses: GI bleed - Physician Notifications Discussed Care Of Patient With: Chela Song Time Discussed With Above Provider: 12:27 Instructed by Provider To: Other - Discussed the case with Dr. Song, hospitalist , who accepted the pt for admission. [13:22] Discussed with Dr. Islas, , who will consult for the pt. Discharge - Sign-Out/Discharge Documenting (check all that apply): Patient Departure - [place] [facility] [place] Received Moderate/Deep Sedation with Procedure: No - Discharge Plan Condition: Stable Disposition: ADMITTED TO [facility] - Billing Disposition and Condition Condition: STABLE Disposition: Admitted to [facility] - Attestation Statements Document Initiated by Scribe: Yes Documenting Scribe: Ariane Brenner Provider For Whom Mauri is Documenting (Include Credential): Richi Posada MD Scribe Attestation: Ariane Stone, scribed for Richi Posada MD on 01/25/19 at 2105. Scribe Documentation Reviewed: Yes Provider Attestation: The documentation as recorded by the scribAriane matthews accurately reflects the service I personally performed and the decisions made by , Richi Posada MD Status of Scribe Document: Viewed
[2019-01-25 11:20] LABS: ABS Eosinophils 0.2 10^3/ul (0-0.6); ABS Lymphocytes 1.4 10^3/ul (1.0-4.8); ABS Monocytes 0.5 10^3/ul (0-0.8); ABS Neutrophils 3.3 10^3/ul (1.5-7.7); Hematocrit 32 % (42-52); Hemoglobin 11.3 g/dL (14.0-18.0); Lymphocyte % 25.7 %; Mean Corpuscular HGB Conc 35 g/dL (31-36); Mean Corpuscular Hemoglobin 35 pg (27-31); Mean Corpuscular Volume 99 fL (80-94); Platelet Count 132 10^3/uL (150-450); Red Blood Count 3.27 10^6 /uL (4.18-5.48); Red Cell Distribution Width 16 % (10-15); White Blood Count 5.4 10^3/uL (3.5-10.8)
[2019-01-25 11:46] LABS: Troponin I 0.07 ng/mL (<0.04)
[2019-01-25 12:06] LABS: ALT 30 U/L (7-52); AST 28 U/L (13-39); Albumin 3.8 g/dL (3.2-5.2); Albumin/Globulin Ratio 1.7 (1-3); Alkaline Phosphatase 64 U/L (34-104); Anion Gap 5 mmol/L (2-11); BUN/Creatinine Ratio 38.8 (8-20); Blood Urea Nitrogen 33 mg/dL (6-24); C Reactive Protein < 1.00 mg/L (<8.01); CO2 Carbon Dioxide 27 mmol/L (22-32); Chloride 104 mmol/L (101-111); EGFR Non-African American 87.6 (>60); Globulin 2.2 g/dL (2-4); Glucose 99 mg/dL (70-100); Magnesium 2.2 mg/dL (1.9-2.7); Potassium 4.4 mmol/L (3.5-5.0); Sodium 136 mmol/L (135-145)
[2019-01-25 12:56] LABS: Urine Appearance Clear; Urine Bilirubin Negative (Negative); Urine Blood Negative (Negative); Urine Color Yellow; Urine Glucose Negative (Negative); Urine Ketones Negative (Negative); Urine Nitrite Negative (Negative); Urine Protein Negative (Negative); Urine Specific Gravity 1.006 (1.010-1.030); Urine Urobilinogen Negative (Negative)
[2019-01-25] MEDS ORDERED: Al Hydrox/Mg Hydrox/Simet LIQ* 30 ML UDC PO PRN (16:12)
[2019-01-25] MEDS ORDERED: Acetaminophen TAB* 325 MG PO PRN (16:12)
[2019-01-25] MEDS ORDERED: Carvedilol TAB* 6.25 MG PO SCH (18:00)
[2019-01-25] MEDS: Carvedilol TAB* 6.25 MG PO SCH (18:12)
[2019-01-25] MEDS: Pantoprazole IV* 40 MG IV SCH (18:13)
[2019-01-25] MEDS: NS 0.9% 1000 ML** 1,000 ML IV SCH (19:10)
[2019-01-25] MEDS: Amiodarone TAB* 200 MG PO SCH (19:15)
--- NOTE | 2019-01-25 19:38 | HP ---
CC: Dr. Gibson; Dr. Glover, Cardiology; Dr. Islas * HISTORY AND PHYSICAL: DATE OF ADMISSION: 01/25/19 PRIMARY CARE PROVIDER: Dr. Gibson. CHIEF COMPLAINT: Dizziness and melena. HISTORY OF PRESENT ILLNESS: Mark Dasilav is a 78-year-old male with history of paroxysmal atrial flutter and status post pacemaker placement, who has had problems with orthostatic dizziness for over a year now. The patient stated that that had been unchanged and he modified his life when he stands up to take some time before he starts moving and he has not had any falls. In the past week, he has noted that whenever he goes up and down the stairs or after a big meal or when he stands up, he gets significantly more lightheaded than before. Today, in the morning, he had a melanotic bowel movement also. He called Dr. Glover's office from where he was directed to the ED for evaluation. Here, he has melena. His stool is heme- positive. His hemoglobin is 11 from his baseline 14. He is going to be placed on overnight observation with a diagnosis of GI bleed. PAST MEDICAL HISTORY: 1. 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 2. History of problems with recent issues with left eye vision, under the care of retinal specialist in [place]. The patient stated that he had problem with his retina on the left and was evaluated with bone marrow biopsy, lumbar puncture, and PET scan by Dr. Bartholomew and all of them were negative. 3. History of coronary artery bypass grafting in 2010. At this point, the patient also had mitral valve repair with annuloplasty and aortic valve replacement with bioprosthetic valve. In 2016, the patient had TAVR of his bioprosthetic aortic valve. 4. 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 He was noted to be not a candidate for ablation in August [address] Salvador from [facility] in [place]. 5. History of supraventricular tachycardia in the past. 6. History of osteoarthritis, status post bilateral knee replacements. 7. History of bilateral shoulder surgeries. 8. Status post TAVR. 9. Cataract surgery in 2018. 10. History of paroxysmal atrial flutter, on anticoagulation with Xarelto. MEDICATIONS AT HOME: Include: 1. Amiodarone 200 mg daily 5 days a week excluding Wednesdays and Sundays. 2. Coreg 6.25 mg q.p.m. and 4.6875 mg q.a.m. 3. Aspirin 81 mg daily. 4. Inspra 25 mg daily. 5. Xarelto 20 mg daily. 6. Multivitamin 1 tablet daily. 7. Probiotic 2 capsules q.p.m. 8. Vitamin C 500 mg daily. 9. Cardio-Plus dietary supplement 1300 mg daily. 10. Glucosamine 2 capsules daily. 11. ProOmega-D 2000 one capsule daily. 12. Coenzyme Q10 100 mg daily. 13. Betafood 2 tablets daily. 14. K complex with magnesium 1 capsule daily. 15. SpectraMin 1 capsule daily. 16. MediWound 2 tablets b.i.d. 17. Vitamin B complex 1 capsule daily. ALLERGIES: Include LISINOPRIL, SPIRONOLACTONE, CANDESARTAN, SACUBITRIL/ VALSARTAN (ENTRESTO). FAMILY HISTORY: Positive for father with prostate cancer who at the age of 91, one sister who is a survivor of breast cancer, and mother who had history of rheumatoid arthritis and of CVA at the age of 89. SOCIAL HISTORY: The patient lives with his , who is his surrogate. He is retired from [employer]. He denies any tobacco, alcohol, or drug use. REVIEW OF SYSTEMS: Please see history of present illness. All the remaining 12 systems were reviewed with the patient and were otherwise negative. PHYSICAL EXAMINATION GENERAL: The patient is a pleasant 78-year-old male, who is in no acute distress. Alert, awake, and oriented x3. VITAL SIGNS: Blood pressure of 96/59, heart rate of 59 and regular, respiratory rate 19, oxygen saturation 98% on room air, temperature of 98.0. HEENT: Head: Atraumatic, normocephalic. Eyes: Pupils are equal, reactive to light and accommodation. Oropharynx is clear. Mucosa moist. NECK: Supple. No JVD. No bruits bilaterally. RESPIRATORY: Clear to auscultation bilaterally. CARDIOVASCULAR: Regular rate and rhythm with 2/6 systolic ejection murmur on auscultation of the apex. ABDOMEN: Soft, nontender. Bowel sounds are present in all 4 quadrants. EXTREMITIES: There is no edema. Pulses are +2 bilaterally. No clubbing or cyanosis. NEUROLOGIC: Speech is clear. Cranial nerves II through XII are grossly intact. Motor strength is 5/5 bilaterally. PSYCHIATRIC: Oriented x3 with no evidence of anxiety or depression. DIAGNOSTIC STUDIES/LAB DATA: Laboratory data showed white blood cell count of 5.4, hemoglobin of 11.3, hematocrit of 32, and platelets of 132,000. Sodium was 136, potassium 4.4, chloride 104, carbon dioxide 27, BUN 33, creatinine 0.85. Liver function tests are unremarkable. Troponin of 0.07, C-reactive protein of below 1, brain natriuretic peptide was 244. Urinalysis grossly unremarkable apart from low specific gravity. The patient's EKG showed atrial paced rhythm with left bundle branch block with a heart rate of 60. ASSESSMENT AND PLAN: 1. Gastrointestinal bleed in a patient with melanotic stools, who has been on aspirin and Xarelto. The patient's Xarelto and aspirin are going to be held. He is going to be placed on clear liquid diet and as discussed with Dr. Islas , likely EGD is going to be planned in the morning. I educated the patient that likely his Xarelto is going to be held for the next several days and aspirin may be able to be restarted after his endoscopy. I will check the patient's H and H tonight. The patient is now mildly hypotensive. I will give him gentle intravenous hydration. Due to history of low EF, we need to watch for fluid overload. 2. The patient has history of atrial flutter and frequent premature ventricular contractions. Currently, he is in a paced rhythm. The patient's troponin is mildly elevated, which is consistent with baseline. We will check 1 more troponin tomorrow. The patient is asymptomatic and complains of no chest pain or shortness of breath. 3. The patient's dizziness is likely orthostatic related to low perfusion state in this patient with low EF, which is chronic, but has gotten worse once the patient is anemic. At this point, the patient does not need to be transfused. He is going to be ambulating with assistance. His hemoglobin did drop from approximately 14 at baseline to 11 today. 4. For DVT prophylaxis, the patient is going to be placed on SCDs and anticoagulation is contraindicated. 5. For his history of heart disease and hypertension, his Coreg is going to be continued with hold parameters. We will hold Inspra for the time being. 6. The patient has history of paroxysmal atrial flutter and amiodarone is going to be continued at outpatient doses. 7. The patient's code status is full. His surrogate is his . TIME SPENT: Approximately 75 minutes were spent on admission of this patient, more than half that time was spent [id number] with the patient during the interview and physical exam. [id number]/[facility] #: [id number] [facility]
--- NOTE | 2019-01-25 23:00 | CONS ---
GASTROENTEROLOGY CONSULT: DATE OF CONSULT: 07/05 CONSULTING PHYSICIAN: Dr. Sai Gibson, Dr. Reg Glover. Reason for Consult - dizziness and black stools - pt and give history HISTORY OF PRESENT ILLNESS: This 78-year-old man with aortic insufficiency and also mitral valve disease and coronary disease, status post multiple cardiac surgeries, most recently TAVR on 06/23/17, has been on Xarelto for 5 years uneventfully. This morning, he saw dark stool, actually black, the first time ever, correlating with being dizzy for the last 48 hours though without syncope. He says he has actually been feeling a little weaker and less vigorous for a couple of weeks. His appetite has been fine, but without trying he has been losing weight for a month, down 10 pounds. It does not correlate with any other change in his medications. He has never had any gastrointestinal bleeding before and has not had anemia. He has no history of acid peptic disease or any gastric problem. He has never had upper endoscopy or any GI workups. He takes a baby aspirin, but no NSAIDs - multiple trade names reviewed in detail. In December he underwent a bone marrow biopsy out of concerns starting from an ophthalmology consult in [place]. The patient states that the bone marrow biopsy was negative. The visit history from Dr. Bartholomew does refer to non-Hodgkin lymphoma. It is unclear if that was firmly cinched down or part of the differential This was not mentioned to the patient. He had a colonoscopy in 2005. It showed a single small transverse colon tubular adenoma. There has been no followup presumably on account of cardiac issues. PAST MEDICAL HISTORY: 1. Coronary disease - status post repair, CABG 2010. 2. Aortic insufficiency - original surgery 2010, [facility], and then TAVR, also in the [place] in June 2017. 3. Heart failure - status post ICD placement about 2011 4. Total knee replacement, right 2004, left 2005 at [facility]. 5. Dyslipidemia. 6. Rheumatoid arthritis - not reviewed in detail - states currently managed by not eating nightshade vegetables especially eggplant. 7. Paroxysmal atrial fibrillation - most recent cardioversion June 2017. OUTPATIENT MEDICATIONS: include Amiodarone - started July 2017, Xarelto 20 mg - November 2013, aspirin 81 mg. He does not take any PPI or other acid blocking medication. ALLERGIES: Listed per his 's document, CANDESARTAN, LISINOPRIL, SPIRONOLACTONE, ENTRESTO. 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 REVIEW OF SYSTEMS: No recent history of syncope, seizures, TIA, CVA, hepatitis , jaundice, fresh rectal bleeding. No history of skin rash or neurologic disorder. TSH [place] July 2018 PHYSICAL EXAM: He is an older man, in bed, actually appearing quite comfortable , and younger than stated age. His is with him. Vitals- 97.4 temporal temperature, blood pressure 120/65, pulse 73. HEENT exam shows no icterus or mucous membrane abnormality. He has no adenopathy. Lungs are clear. Heart sounds are regular with a blowing diastolic murmur and a thud sound. Abdomen is symmetric, soft and nontender. The liver edge feels a little bit irregular and comes down a couple of centimeters. Extremities show no edema. Neurologic is nonfocal. DIAGNOSTIC STUDIES/LAB DATA: Hemoglobin 11.3, hematocrit 32, platelets 132. BUN 33, creatinine 0.85. LFTs normal, ALT 30, alkaline phosphatase 64, CRP less than 1, albumin 3.8. Labs 12/15/18, had shown rheumatoid factor negative. Sedimentation rate 1. IMPRESSION: This 78-year-old man with severe cardiac valvular disease and a history of coronary disease status post bypass and atrial arrhythmias presents the first time with melena after 5 years of uneventful Xarelto treatment. He has no history of acid peptic disease or prior gastrointestinal bleeding. He did have a transverse colon polyp in 2006, but this event clearly is upper gastrointestinal in origin with the elevated BUN.. As there is no risk free dose of aspirin and he is not on any acid suppression, most likely there is a small peptic lesion causing melena though the differential is broad. EGD is planned. Whether this presentation relates at all to his weight loss or the workup he is undergoing with Dr. Bartholomew, which may have found a lymphoproliferative disorder, is unclear but seems doubtful. [id number]/[facility] #: [id number] [facility]
[2019-01-26] MEDS: Pantoprazole IV* 40 MG IV SCH ×2 (05:34→18:03)
[2019-01-26 06:43] LABS: ABS Eosinophils 0.2 10^3/ul (0-0.6); ABS Lymphocytes 1.1 10^3/ul (1.0-4.8); ABS Monocytes 0.4 10^3/ul (0-0.8); ABS Neutrophils 2.5 10^3/ul (1.5-7.7); Eosinophil % 5.3 %; Hematocrit 30 % (42-52); Hemoglobin 10.5 g/dL (14.0-18.0); Lymphocyte % 25.8 %; Mean Corpuscular HGB Conc 35 g/dL (31-36); Mean Corpuscular Hemoglobin 35 pg (27-31); Mean Corpuscular Volume 100 fL (80-94); Nucleated Red Blood Cells % 0.1; Platelet Count 133 10^3/uL (150-450); Red Blood Count 3.04 10^6 /uL (4.18-5.48); Red Cell Distribution Width 16 % (10-15); White Blood Count 4.3 10^3/uL (3.5-10.8)
[2019-01-26 07:05] LABS: BUN/Creatinine Ratio 20.2 (8-20); Calcium 8.5 mg/dL (8.6-10.3); EGFR African American 100.6 (>60); EGFR Non-African American 83.1 (>60); Potassium 3.9 mmol/L (3.5-5.0)
[2019-01-26 07:11] LABS: Troponin I 0.06 ng/mL (<0.04)
[2019-01-26] MEDS: Carvedilol TAB* 3.125 MG PO SCH (07:53)
[2019-01-26] MEDS ORDERED: Carvedilol TAB* 3.125 MG PO SCH (09:00)
[2019-01-26] MEDS: NS 0.9% 1000 ML** 1,000 ML IV SCH (09:39)
--- NOTE | 2019-01-26 15:12 | PN ---
Subjective Date of Service: 01/26/19 Interval History: Pt feels well, has not had a BM since yesterday AM, denies abd pain/SOB Objective Active Medications: Acetaminophen (Tylenol Tab*) 650 mg PO Q4H PRN PRN Reason: FEVER/PAIN Al Hydrox/Mg Hydrox/Simethicone (Maalox Plus*) 30 ml PO Q6H PRN PRN Reason: INDIGESTION Amiodarone HCl (Cordarone Tab*) 200 mg PO MOTUTHFRSA [facility] Last Admin: 01/25/19 19:15 Dose: 200 mg Carvedilol (Coreg Tab*) 6.25 mg PO QPM [facility] Last Admin: 01/25/19 18:12 Dose: 6.25 mg Carvedilol (Coreg Tab*) 4.6875 mg PO QAM [facility] Last Admin: 01/26/19 07:53 Dose: 4.6875 mg Sodium Chloride (Ns 0.9% 1000 Ml) 1,000 mls @ 75 mls/hr IV PER RATE [facility] Last Admin: 01/26/19 09:39 Dose: 75 mls/hr Pantoprazole Sodium (Protonix Iv*) 40 mg IV Q12H [facility] Last Admin: 01/26/19 05:34 Dose: 40 mg Vital Signs - 8 hr 01/26/19 01/26/19 01/26/19 07:15 08:00 11:20 Temperature 97.8 F 98.1 F Pulse Rate 61 62 Respiratory 20 20 17 Rate Blood Pressure 102/58 91/57 (mmHg) O2 Sat by Pulse 99 99 Oximetry 01/26/19 14:58 Temperature 98.0 F Pulse Rate 60 Respiratory 19 Rate Blood Pressure 169/51 (mmHg) O2 Sat by Pulse 98 Oximetry Oxygen Devices in Use Now: None Appearance: 78 yo F in nAD, aAOx3 Eyes: No Scleral Icterus, PERRLA Ears/Nose/Mouth/Throat: NL Teeth, Lips, Gums, Mucous Membranes Moist Neck: NL Appearance and Movements; NL JVP, Trachea Midline Respiratory: Symmetrical Chest Expansion and Respiratory Effort, Clear to Auscultation Cardiovascular: RRR, - - 2/6 PRISCILLA at apex Abdominal: NL Sounds; No Tenderness; No Distention, No Hepatosplenomegaly Lymphatic: No Cervical Adenopathy Extremities: No Edema, No Clubbing, Cyanosis Skin: No Rash or Ulcers, No Nodules or Sclerosis Neurological: Alert and Oriented x 3, NL Muscle Strength and Tone Result Diagrams: 01/26/19 06:15 01/26/19 06:15 Microbiology and Other Data: Microbiology 01/25/19 11:05 Stool Occult Blood (CELSO) - Final Stool Assess/Plan/Problems-Billing Assessment: 78 yo M with h/o EF 35% , chronic orthostatic dizziness, Paroxysmal a. flutter, ICD/Pacer, CABG/mitral valve repair/biprostetic aortic valve in 2010 , TAVR in 2017 presented with more dizziness and melena - Patient Problems (1) Acute upper GI bleed Comment: ASA and Xarelto on hold NPO for EGD today cont Protonix IV BID Hb today down to 10.5 from 11.3, but no more melena, suspect dilution (2) Atrial flutter Comment: paroxysmal, currently paced cont Coreg, amidarone (3) Elevated troponin Comment: chronic at baseline (4) DVT prophylaxis Comment: Xarelto held, cont SCD's Status and Disposition: OBV will be changed to inpatient. Pt will have EGD later on in PM and will be monitored post EGD overnight
[2019-01-26] MEDS ORDERED: fentaNYL* 50 MCG/ML 2 ML VIAL (100 MCG VIAL) ONE (16:01)
[2019-01-26] MEDS ORDERED: Midazolam* 1 MG/ML 10 ML VIAL (10 MG) ONE (16:01)
[2019-01-26] MEDS: Carvedilol TAB* 6.25 MG PO SCH (18:03)
--- NOTE | 2019-01-26 19:36 | PRO ---
CC: Sai Gibson MD; Dr. Chela Song.* PROCEDURE REPORT: DATE OF PROCEDURE: 01/26/19 PROCEDURE: EGD with biopsy. PRIMARY CARE PROVIDER: Sai Gibson MD INPATIENT ATTENDING PROVIDER: Dr. Chela Song. INDICATIONS: The patient was admitted with 1 to 2 weeks of dizziness with an episode of melena. Also reports weight loss of approximately 10 pounds. Hemoglobin noted to be 11.3 on admission, which is down from 14.8 in December. No melena since admission. Hemodynamically stable. Repeat blood count with a hemoglobin of 10.5. The patient is on Xarelto for atrial fibrillation, which has been held since admission. MEDICATIONS GIVEN: Midazolam 4.5 mg IV, Fentanyl 50 mcg IV. DESCRIPTION OF PROCEDURE: Full disclosure of risks was reviewed with the patient as detailed on the consent form. The patient was placed in the left lateral decubitus position and monitored with continuous pulse oximetry, capnography, interval blood pressure monitoring, and direct observation. A bite -block was placed between the patient's teeth. An adult gastroscope was then inserted into the patient's mouth and advanced down the esophagus, into the stomach, and into the distal duodenum. Findings and interventions are described below. FINDINGS: Esophagus was a tubular structure without rings or strictures. The Z - line was mildly irregular. The scope was advanced into the stomach. There was no fresh or old blood noted. In the proximal to mid gastric body, along the greater curvature, there was a large gastric ulcer (1.5-2 cm). There were heaped up edges surrounding this ulcer with possible sub-epithelial or submucosal mass-like lesion below the ulcer. Ulcer was clean based with the exception of a small pigmented spot. Along the lesser curvature, there was an approximately 1-cm smooth gastric nodule. No ulcerated portion noted to this nodule. Gastric mucosa was otherwise unremarkable. The scope was advanced into the duodenum to at least the third portion. There was no fresh or old blood. Duodenal mucosa was normal. No erosions, ulcers, or AVMs. Ampulla was visualized and appeared normal. The scope was then withdrawn back into the stomach. The ulcerated gastric lesion was further evaluated. The pediatric forceps were used to take multiple small biopsies from the heaped up edges of the ulcer. Scope was then withdrawn from the patient. The patient tolerated the procedure well and was recovered in the GI recovery area. IMPRESSION: 1. Complete upper endoscopy to distal duodenum. 2. No evidence of active or recent bleeding seen on exam. 3. Large ulcerated gastric lesion, clean-based with small pigmented spot. Atypical appearance for peptic ulcer disease. Endoscopic appearance raises question of gastrointestinal stromal tumors versus malignancy. Biopsies taken from edge of ulcer. FOLLOWUP: 1. Await pathology. 2. Continue IV PPI b.i.d. 3. Would continue to hold Xarelto for now as long as this is acceptable from a cardiac risk standpoint. 4. Continue to monitor CBC every 8 hours. 5. Clear diet for today. Consider advancing to soft diet in the next 24 hours if the patient remains stable. 6. If pathology is non-malignant, then I would recommend repeat EGD in 8 weeks to reassess for ulcer healing. Thank you very much for this consult. GI will continue to follow along. [id number]/[facility] #: [id number] [facility]
[2019-01-26] MEDS: Docusate CAP* 100 MG PO PRN (21:25)
[2019-01-27] MEDS: Pantoprazole IV* 40 MG IV SCH ×2 (06:16→18:08)
[2019-01-27 06:39] LABS: Hematocrit 30 % (42-52); Hemoglobin 10.2 g/dL (14.0-18.0); Mean Corpuscular HGB Conc 35 g/dL (31-36); Mean Corpuscular Hemoglobin 34 pg (27-31); Mean Corpuscular Volume 99 fL (80-94); Mean Platelet Volume 8.1 fL (7.4-10.4); Platelet Count 135 10^3/uL (150-450); Red Blood Count 2.98 10^6 /uL (4.18-5.48); Red Cell Distribution Width 16 % (10-15); White Blood Count 4.1 10^3/uL (3.5-10.8)
[2019-01-27 07:03] LABS: Calcium 8.5 mg/dL (8.6-10.3); EGFR African American 110.5 (>60); EGFR Non-African American 91.3 (>60); Potassium 4.3 mmol/L (3.5-5.0)
[2019-01-27] MEDS: NS 0.9% 1000 ML** 1,000 ML IV SCH (08:01)
[2019-01-27] MEDS: Carvedilol TAB* 3.125 MG PO SCH (08:03)
[2019-01-27 14:13] LABS: Hematocrit 31 % (42-52); Hemoglobin 10.5 g/dL (14.0-18.0)
--- NOTE | 2019-01-27 14:24 | PN ---
Subjective Date of Service: 01/27/19 Interval History: HOSPITALIST PROGRESS NOTE Patient seen and examined at bedside. Care reviewed and d/w Lizbeth Butler RN. He feels better today. No BM so far while in the hospital. Denies abdominal pain , N/V, passing flatus, tolerating diet well. Was able to ambulate around unit with no symptoms. Family History: Unchanged from Admission Social History: Unchanged from Admission Past Medical History: Unchanged from Admission Objective Active Medications: Acetaminophen (Tylenol Tab*) 650 mg PO Q4H PRN PRN Reason: FEVER/PAIN Al Hydrox/Mg Hydrox/Simethicone (Maalox Plus*) 30 ml PO Q6H PRN PRN Reason: INDIGESTION Amiodarone HCl (Cordarone Tab*) 200 mg PO MOTUTHFRSA [facility] Last Admin: 01/25/19 19:15 Dose: 200 mg Carvedilol (Coreg Tab*) 6.25 mg PO QPM [facility] Last Admin: 01/26/19 18:03 Dose: 6.25 mg Carvedilol (Coreg Tab*) 4.6875 mg PO QAM [facility] Last Admin: 01/27/19 08:03 Dose: 4.6875 mg Docusate Sodium (Colace Cap*) 100 mg PO BID PRN PRN Reason: CONSTIPATION Last Admin: 01/26/19 21:25 Dose: 100 mg Pantoprazole Sodium (Protonix Iv*) 40 mg IV Q12H [facility] Last Admin: 01/27/19 06:16 Dose: 40 mg Vital Signs - 8 hr 01/27/19 01/27/19 07:35 08:00 Temperature 98.7 F Pulse Rate 59 Respiratory 16 18 Rate Blood Pressure 101/54 (mmHg) O2 Sat by Pulse 99 Oximetry Oxygen Devices in Use Now: None Appearance: Pleasant elderly gentleman sitting up in bed in NAD. Eyes: No Scleral Icterus Ears/Nose/Mouth/Throat: Mucous Membranes Moist Neck: Trachea Midline Respiratory: Symmetrical Chest Expansion and Respiratory Effort, Clear to Auscultation Cardiovascular: RRR - Normal S1 and S2 Abdominal: NL Sounds; No Tenderness; No Distention Extremities: No Edema Neurological: Alert and Oriented x 3, NL Muscle Strength and Tone Result Diagrams: 01/27/19 14:07 01/27/19 06:03 Assess/Plan/Problems-Billing Assessment: Mr Dasilva is a 78 yo M with PMH of systolic CHF with EF 35%, chronic orthostatic dizziness, Paroxysmal a. flutter, s/p ICD/Pacer, CABG/mitral valve repair/ biprostetic aortic valve in 2010, TAVR in 2017 who presented with more dizziness and melena, found to have an UGI bleed secondary to an atypical gastric ulcer. - Patient Problems (1) Acute upper GI bleed Comment: - No signs of active bleeding at this time. - Aspirin and Rivaroxaban on hold. - Source is gastric ulcer. (2) Gastric ulcer Comment: - EGD revealed large ulcerated gastric lesion, atypical for PUD, suspicious for GIST vs other malignancy. - Awaiting path report. - D/w GI (Dr Burgos) - feels patient is at very high risk for bleeding and recommends 24h more of IV Pantoprazole and no Aspirin or Xarelto for now. 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 If discharged tomorrow, has appointment with Dr Bartholomew 01/31/19 at 8AM. (3) Blood loss anemia Comment: - Hb down from 14 to 10 in a patient with known heart disease. - No indication for transfusion at this time, but will continue to monitor H/H. 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 - Opthalmologist concerned uveitis could be secondary to lymphoma. 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 He was referred to [facility] for a second opinion. - PET scan done in December showed non specific mild hypermetabolic bilateral lymph nodes. (5) Elevated troponin Comment: - Chronically elevated at baseline. (6) Atrial flutter Comment: - Paroxysmal - currently paced. - Continue Carvedilol and Amiodarone. - D/w patient's patient carrier (Dr Glover) - patient has a [id number] score of 4, but he agrees at this time patient is at a greater risk of bleeding. He is in agreement with holding Aspirin and Rivaroxaban until GI deems safe to resume it. - Patient understands he's at risk for embolic events, including, but not limited to CVAs. (7) DVT prophylaxis Comment: - Pharmacological prophylaxis contraindicated in the setting of GI bleed. - SCDs. (8) Full code status Status and Disposition: Inpatient. Possible d/c in AM if H/H remains stable.
[2019-01-27] MEDS: Docusate CAP* 100 MG PO PRN (15:54)
[2019-01-27] MEDS: Carvedilol TAB* 6.25 MG PO SCH (18:08)
[2019-01-27] MEDS: Amiodarone TAB* 200 MG PO SCH (18:08)
[2019-01-28] MEDS: Pantoprazole IV* 40 MG IV SCH (06:19)
[2019-01-28 07:02] LABS: Hematocrit 31 % (42-52); Hemoglobin 10.5 g/dL (14.0-18.0)
[2019-01-28 08:23] VITALS: BP 101/61
[2019-01-28] MEDS: Docusate CAP* 100 MG PO PRN (08:36)
[2019-01-28] MEDS: Carvedilol TAB* 3.125 MG PO SCH (08:36)
[2019-01-28] MEDS ORDERED: Magnesium Hydroxide LIQ* 30 ML UDC PO PRN (10:15)
[2019-01-28] MEDS ORDERED: Sodium Phosphate ADULT ENEMA* 118 ml bottle PR PRN (10:15)
[2019-01-28] MEDS: Polyethylene Glycol 3350* 17 GM PACKET PO SCH ×2 (10:56→13:33)
[2019-01-28] MEDS ORDERED: Pantoprazole TAB * 40 MG TAB PO SCH (21:00)
--- NOTE | 2019-01-28 22:48 | DS ---
CC: Dr. Gibson; Dr. Glover; Dr. Bartholomew; Dr. Islas; Dr. Tomy Mcrae DISCHARGE SUMMARY: DATE OF ADMISSION: 01/25/19 DATE OF DISCHARGE: 01/28/19 PRIMARY CARE PROVIDER: Dr. Gibson. AUTO WASH BUFFER: Dr. Glover. WHEEL PRESS OPERATOR: Dr. Bartholomew. SHAREPOINT DEVELOPER: Dr. Islas. SALES MERCHANDISING SPECIALIST: Dr. Tomy Mcrae, phone number [phone]. DISCHARGE DIAGNOSES: 1. Upper gastrointestinal bleed. 2. Atypical gastric ulcer. 3. Acute blood loss anemia. SECONDARY DIAGNOSES: 1. Primary cardiomyopathy with ejection fraction of 25 to 30% in November 2018. 2. Coronary artery disease, status post coronary artery bypass graft in 2010 with mitral valve repai r with annuloplasty and an aortic valve replacement with a bioprosthetic valve. 3. Status post TAVR of his bioprosthetic aortic valve in 2016. 4. Status post implantable cardioverter defibrillator. 5. Supraventricular tachycardia. 6. Multiple premature ventricular contractions. 7. Osteoarthritis, status post bilateral knee replacements. 8. Status post bilateral shoulder surgeries. 9. Status post cataract surgery. 10. Paroxysmal atrial flutter. 11. 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 The patient had a workup as outpatient with Dr. Bartholomew with bone marrow biopsy, lumbar puncture and PET scan that althoug h did not show lymphoma. 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 MEDICATION LIST: 1. Amiodarone 200 mg p.o. Mondays, Tuesdays, , Fridays and Saturdays. 2. Vitamin C 500 mg p.o. daily. 3. Probiotic 2 tablets p.o. at bedtime. 4. Betafood 2 tablets p.o. daily. 5. Cardio-Plus 1300 mg p.o. daily. 6. Carvedilol 4.6875 mg p.o. in the morning and 6.25 mg p.o. in the evening. 7. Eplerenone 25 mg p.o. daily. 8. Saw palmetto 4 capsules p.o. daily. 9. Glucosamine-chondroitin 2 capsules p.o. daily. 10. K-complex 1 capsule p.o. daily. 11. Multivitamin 1 tablet p.o. daily. 12. ProOmega-D 1 capsule p.o. daily. 13. Prostate health 2 tablets p.o. b.i.d. 14. SpectraMin 1 tablet p.o. daily. 15. Ubiquinone 100 mg p.o. daily. 16. Vitamin B complex 1 capsule p.o. daily. New medications: 1. Bisacodyl 5 mg p.o. at bedtime as needed for constipation. 2. MiraLAX 17 g p.o. daily as needed for constipation. 3. Pantoprazole 40 mg p.o. b.i.d. Aspirin and Xarelto were discontinued due to high risk of bleeding. HOSPITAL COURSE: Mr. Dasilva is a 78 years old male with a past medical history as stated above that p resented to the emergency room with complaints of dizziness and melena. For more details about his p resentation, I refer you to the history and physical dictated by Dr. Song. In the emergency room, the patient was found to have a hemoglobin of 11.3 from a baseline of 14.8 in early December. BUN was elevated at 33 and stool for occult blood was positive. The patient was admitted under the impression of an upper GI bleed and at that point, his aspirin and Xarelto were discontinu ed. The patient was seen in consultation by Gastroenterology (Dr. Islas) and his recommendation was for an upper endoscopy. This was performed by Dr. Tamayo on 01/26/19 and it revealed a large ulcer ated gastric lesion and a typical appearance for peptic ulcer disease. Endoscopic appearance raises question of a gastrointestinal stromal tumor versus malignancy. No endoscopic therapy for the ulcer was used as the ulcer was clean based, but had a flat pigmented spot. The case was discussed with Dr Malia Tamayo, Dr. Burgos and Dr. Islas and the plan is to continue Protonix 40 mg twice a day for 4 to 6 weeks and he will followup as outpatient for a repeat endoscopy. Dr. Burgos felt that the p atient was at a very high risk for bleeding considering the findings on his endoscopy and after discu ssing with the patient's piping design specialist, Dr. Mauser, decision was made to hold his aspirin and Xarelto for now. I discussed with the patient and his that he will be at increased risk for thrombotic events including but not limited to stroke with possibility of permanent disability and . The p atient understands the risk because the other option would be to have further episodes of bleeding an d considering his complicated cardiac history that would have its own implications with possibility o f arrhythmias, permanent disability and . The patient's gastric biopsy results are still not av ailable, but the concern is that the patient could have a mild lymphoma, especially considering his e ye issues and workup done so far. He has a scheduled appointment to see Dr. Bartholomew on 01/31/19 at 8:00 a.m. (I personally contacted Dr. Bartholomew and he is the one who made this appointment) and the patient w as advised that depending on the results of the biopsy, further workup will be necessary. While in the hospital, the patient had no further bowel movements, but his H and H has remained stabl e around 10.5/31. He has been able to tolerate diet with no other symptoms. His vital signs have re mained stable. The patient is medically stable for discharge at this time, but he will need close follow up as outpa tient. He was advised about signs and symptoms that would prompt his return to the emergency room. PHYSICAL EXAMINATION: Vital Signs: Temperature 98.0, heart rate is 66, respiratory rate is 16, oxyg en saturation is 98% on room air, blood pressure is 101/61. General: The patient is a pleasant elde rly gentleman, sitting up in the bed in no acute distress. CVS: Normal S1, S2, regular rate and rhy thm. Chest: Breath sounds present bilaterally with no added sounds. Abdomen: Soft. Bowel sounds ar e present. Extremities: No edema. Neuro: He is alert and oriented x3. Able to move all 4 extremit ies. DIET: Heart-healthy diet. ACTIVITIES: As tolerated. DISPOSITION: To home. STATUS WHILE IN THE HOSPITAL: Inpatient. Please keep in mind that this is a summarized version of this patient's very complex medical history. If you need more information, please feel free to call me at [phone] or please obtain full [facility] records. TIME SPENT: Approximately 50 minutes was spent to complete this discharge. All the patient's questi ons were answered to the best of my knowledge. [id number]/[facility] #: [id number]
== END 2019-01-28 13:40 | disposition home or self-care (01) | DRG 378 ==
LOC: ED 10:36 → MED 15:49 → OBSVTOIN 01-26 15:57
PROVIDERS: ADMIT Internal Medicine; ATTEND Internal Medicine
PROC: 0DB68ZX Excision of Stomach, Via Natural or Artificial Opening Endoscopic, Diagnostic (ICD-10-PCS; principal; 2019-01-26)
DX: K25.4 Chronic or unspecified gastric ulcer with hemorrhage (principal); D62 Acute posthemorrhagic anemia; I42.9 Cardiomyopathy, unspecified; I48.92 Unspecified atrial flutter; I50.22 Chronic systolic (congestive) heart failure; H44.002 Unspecified purulent endophthalmitis, left eye; R79.89 Other specified abnormal findings of blood chemistry; Z96.653 Presence of artificial knee joint, bilateral; I44.7 Left bundle-branch block, unspecified; E78.5 Hyperlipidemia, unspecified; I48.0 Paroxysmal atrial fibrillation; I25.10 Atherosclerotic heart disease of native coronary artery without angina pectoris; Z88.8 Allergy status to other drugs, medicaments and biological substances; Z88.7 Allergy status to serum and vaccine; Z79.01 Long term (current) use of anticoagulants; Z95.2 Presence of prosthetic heart valve; Z95.0 Presence of cardiac pacemaker; Z95.1 Presence of aortocoronary bypass graft; Z98.49 Cataract extraction status, unspecified eye; Z80.42 Family history of malignant neoplasm of prostate; Z82.3 Family history of stroke; Z82.61 Family history of arthritis; Z82.49 Family history of ischemic heart disease and other diseases of the circulatory system; Z80.6 Family history of leukemia
CPT/HCPCS: 36415; 80048; 80053; 81003; 82272; 83690; 83735; 83880; 84484; 85014; 85018; 85025; 85027; 85730; 86140; 88305; 93005; 99156; 99157; 99285; A9270-GY; J2250; J3010

== ENCOUNTER 2021-04-08 20:17 | Observation (INO) ==
[2021-04-08] MEDS ORDERED: cefTRIAXone 2 GM ADDV.VIAL 2 GM in NS 0.9% 100 ml BAG 100 ML IVPB ONE (23:43)
[2021-04-09 00:27] LABS: ABS Lymphocytes 0.7 10^3/ul (1.0-4.8); ABS Monocytes 0.7 10^3/ul (0-0.8); ABS Neutrophils 5.3 10^3/ul (1.5-7.7); Eosinophil % 0.2 %; Hematocrit 41 % (42-52); Hemoglobin 13.9 g/dL (14.0-18.0); Lymphocyte % 10.9 %; Mean Corpuscular HGB Conc 34 g/dL (31-36); Mean Corpuscular Hemoglobin 34 pg (27-31); Mean Corpuscular Volume 99 fL (80-94); Mean Platelet Volume 8.2 fL (7.4-10.4); Platelet Count 127 10^3/uL (150-450); Red Cell Distribution Width 14 % (10-15); White Blood Count 6.7 10^3/uL (3.5-10.8)
[2021-04-09 00:42] LABS: Albumin/Globulin Ratio 1.3 (1-3); C Reactive Protein 38.22 mg/L (<8.01); Calcium 8.8 mg/dL (8.6-10.3); EGFR African American 97.2 (>60); EGFR Non-African American 80.4 (>60); Globulin 3.1 g/dL (2-4); Total Bilirubin 1.8 mg/dL (0.2-1.0); Total Protein 7.1 g/dL (6.4-8.9)
[2021-04-09] MEDS ORDERED: Ondansetron 4 mg VIAL 2 MG/ML 2 ml VIAL IV PRN (00:58)
[2021-04-09 06:11] LABS: ABS Eosinophils 0.1 10^3/ul (0-0.6); ABS Lymphocytes 0.7 10^3/ul (1.0-4.8); ABS Monocytes 0.7 10^3/ul (0-0.8); ABS Neutrophils 4.9 10^3/ul (1.5-7.7); Hematocrit 38 % (42-52); Hemoglobin 13.2 g/dL (14.0-18.0); Lymphocyte % 10.5 %; Mean Corpuscular HGB Conc 35 g/dL (31-36); Mean Corpuscular Hemoglobin 34 pg (27-31); Mean Corpuscular Volume 99 fL (80-94); Mean Platelet Volume 8.3 fL (7.4-10.4); Platelet Count 113 10^3/uL (150-450); Red Blood Count 3.86 10^6 /uL (4.18-5.48); Red Cell Distribution Width 14 % (10-15); White Blood Count 6.3 10^3/uL (3.5-10.8)
[2021-04-09 06:20] LABS: INR 1.47 (0.86-1.15)
[2021-04-09 06:39] LABS: Calcium 8.4 mg/dL (8.6-10.3); EGFR African American 97.2 (>60); EGFR Non-African American 80.4 (>60)
[2021-04-09] MEDS: CMCS:Epleronone 25 mg TAB (NF) PO SCH (08:51)
[2021-04-09] MEDS ORDERED: cefTRIAXone 1 gm/50 mL NS BAG 1 GM/50 ML BAG IVPB SCH (21:00)
[2021-04-10 05:40] LABS: Hematocrit 36 % (42-52); Hemoglobin 12.6 g/dL (14.0-18.0); Mean Corpuscular HGB Conc 35 g/dL (31-36); Mean Corpuscular Hemoglobin 34 pg (27-31); Mean Corpuscular Volume 99 fL (80-94); Mean Platelet Volume 8.5 fL (7.4-10.4); Platelet Count 117 10^3/uL (150-450); Red Blood Count 3.67 10^6 /uL (4.18-5.48); Red Cell Distribution Width 14 % (10-15); White Blood Count 4.6 10^3/uL (3.5-10.8)
[2021-04-10 07:01] LABS: Calcium 8.6 mg/dL (8.6-10.3); EGFR Non-African American 79.4 (>60); Magnesium 1.9 mg/dL (1.9-2.7); Phosphorus 2.8 mg/dL (2.5-5.0); Potassium 4.3 mmol/L (3.5-5.0)
[2021-04-10] MEDS: CMCS:Epleronone 25 mg TAB (NF) PO SCH (09:00)
[2021-04-10 11:13] VITALS: BP 103/56
== END 2021-04-10 14:40 | disposition home or self-care (01) ==
LOC: ED 20:17 → MED 20:17 → SUATTDRO 04-09 00:52 → MED 04-09 02:49
PROVIDERS: ADMIT Internal Medicine; ATTEND Internal Medicine

== ENCOUNTER 2022-01-28 16:25 | Observation (INO) ==
[2022-01-28 17:32] LABS: ABS Eosinophils 0.2 10^3/ul (0-0.6); ABS Lymphocytes 0.8 10^3/ul (1.0-4.8); ABS Monocytes 0.4 10^3/ul (0-0.8); ABS Neutrophils 3.8 10^3/ul (1.5-7.7); Eosinophil % 3.2 %; Hematocrit 40 % (42-52); Hemoglobin 13.4 g/dL (14.0-18.0); Lymphocyte % 15.6 %; Mean Corpuscular HGB Conc 34 g/dL (31-36); Mean Corpuscular Hemoglobin 33 pg (27-31); Mean Corpuscular Volume 99 fL (80-94); Mean Platelet Volume 8.5 fL (7.4-10.4); Nucleated Red Blood Cells % 0.1; Platelet Count 107 10^3/uL (150-450); Red Blood Count 4.05 10^6 /uL (4.18-5.48); Red Cell Distribution Width 15 % (10-15); White Blood Count 5.2 10^3/uL (3.5-10.8)
[2022-01-28 17:56] LABS: Albumin/Globulin Ratio 1.6 (1-3); Calcium 8.7 mg/dL (8.6-10.3); Globulin 2.5 g/dL (2-4); Potassium 4.1 mmol/L (3.5-5.0); Total Bilirubin 1.1 mg/dL (0.2-1.0); Total Protein 6.5 g/dL (6.4-8.9); eGFR CKD-EPI 88.1 (>60)
[2022-01-28 18:00] LABS: Urine Appearance Cloudy; Urine Bilirubin Negative (Negative); Urine Blood 3+ (Negative); Urine Color Amber; Urine Glucose Negative (Negative); Urine Ketones Negative (Negative); Urine Nitrite Negative (Negative); Urine Protein 1+(30 mg/dL) (Negative); Urine Specific Gravity 1.017 (1.002-1.030); Urine Urobilinogen Negative (Negative)
[2022-01-28 18:04] LABS: Urine Bacteria Absent (Absent); Urine Red Blood Cell 3+(>10/hpf) (Absent); Urine Squamous Epithelial Cell Present (Absent); Urine White Blood Cell 3+(>20/hpf) (Absent)
[2022-01-29 05:40] LABS: ABS Eosinophils 0.2 10^3/ul (0-0.6); ABS Lymphocytes 1.1 10^3/ul (1.0-4.8); ABS Monocytes 0.6 10^3/ul (0-0.8); ABS Neutrophils 3.7 10^3/ul (1.5-7.7); Eosinophil % 3.6 %; Hematocrit 37 % (42-52); Hemoglobin 12.6 g/dL (14.0-18.0); Lymphocyte % 20.1 %; Mean Corpuscular HGB Conc 34 g/dL (31-36); Mean Corpuscular Hemoglobin 34 pg (27-31); Mean Corpuscular Volume 99 fL (80-94); Mean Platelet Volume 8.4 fL (7.4-10.4); Platelet Count 98 10^3/uL (150-450); Red Blood Count 3.74 10^6 /uL (4.18-5.48); Red Cell Distribution Width 15 % (10-15); White Blood Count 5.7 10^3/uL (3.5-10.8)
[2022-01-29 05:56] LABS: Calcium 8.6 mg/dL (8.6-10.3); Magnesium 1.9 mg/dL (1.9-2.7); Potassium 4.1 mmol/L (3.5-5.0); eGFR CKD-EPI 84.6 (>60)
[2022-01-29] MEDS ORDERED: [UNRECOGNIZED DRUG - OTHER] PO SCH (09:00)
[2022-01-29] MEDS ORDERED: CMCS: Epleronone 25 mg TAB (NF) PO SCH (09:00)
[2022-01-29] MEDS ORDERED: [UNRECOGNIZED DRUG - OTHER] PO SCH (09:00)
[2022-01-29] MEDS ORDERED: [UNRECOGNIZED DRUG - OTHER] PO SCH (09:00)
[2022-01-29] MEDS ORDERED: [UNRECOGNIZED DRUG - OTHER] PO SCH (09:00)
[2022-01-29] MEDS ORDERED: [UNRECOGNIZED DRUG - OTHER] PO SCH (09:00)
[2022-01-29] MEDS ORDERED: cefTRIAXone 1 gm/50 mL D5W 1 GM/50 ML BAG IV ONE (09:00)
[2022-01-29] MEDS ORDERED: Cholecalciferol (VIT D3) 1,000 unit TAB PO SCH (09:00)
[2022-01-29] MEDS ORDERED: [UNRECOGNIZED DRUG - OTHER] PO SCH (09:00)
[2022-01-29] MEDS: [UNRECOGNIZED DRUG - OTHER] PO SCH ×2 (09:12)
[2022-01-29] MEDS: Ketorolac 0.5% OPHTH (NF) 0.5 % 5 ML BTL BOTH EYES SCH ×2 (09:22)
[2022-01-29 11:24] VITALS: BP 93/63
== END 2022-01-29 14:15 | disposition home or self-care (01) ==
LOC: EDHOLD 16:25 → ED 16:25 → SSU 22:49
PROVIDERS: ADMIT Internal Medicine; ATTEND Internal Medicine

== ENCOUNTER 2022-06-23 13:20 | Observation (INO) ==
[2022-06-23 13:50] LABS: ABS Eosinophils 0.1 10^3/ul (0-0.6); ABS Lymphocytes 1.2 10^3/ul (1.0-4.8); ABS Monocytes 0.5 10^3/ul (0-0.8); ABS Neutrophils 2.8 10^3/ul (1.5-7.7); Eosinophil % 2.5 %; Hematocrit 41 % (42-52); Hemoglobin 13.5 g/dL (14.0-18.0); Lymphocyte % 25.8 %; Mean Corpuscular HGB Conc 33 g/dL (31-36); Mean Corpuscular Hemoglobin 33 pg (27-31); Mean Corpuscular Volume 100 fL (80-94); Mean Platelet Volume 8.7 fL (7.4-10.4); Platelet Count 112 10^3/uL (150-450); Red Blood Count 4.05 10^6 /uL (4.18-5.48); Red Cell Distribution Width 15 % (10-15); White Blood Count 4.6 10^3/uL (3.5-10.8)
[2022-06-23 13:55] LABS: INR 1.53 (0.89-1.11)
[2022-06-23 14:30] LABS: Albumin/Globulin Ratio 1.5 (1-3); Calcium 9.1 mg/dL (8.6-10.3); Globulin 2.6 g/dL (2-4); Total Bilirubin 1.1 mg/dL (0.2-1.0); Total Protein 6.6 g/dL (6.4-8.9); eGFR CKD-EPI 62.4 (>60)
[2022-06-23 15:37] LABS: High Sensitivity Troponin 1 Hr 61 pg/mL (<20)
[2022-06-23] MEDS ORDERED: CMC:Epleronone 25 mg TAB (NF) PO SCH (23:00)
[2022-06-23] MEDS ORDERED: Ketorolac 0.5% OPHTH (NF) 0.5 % 5 ML BTL LEFT EYE SCH (23:00)
[2022-06-24] MEDS ORDERED: fentaNYL 100 mcg/2 ml 50 MCG/ML VIAL ONE (08:24)
[2022-06-24] MEDS ORDERED: Naloxone 0.4 mg VIAL 0.4 mg/ml 1 ml VIAL ONE (08:24)
[2022-06-24] MEDS ORDERED: Midazolam 5 mg/5 ml VIAL 1 mg/ml 5 ml VIAL (5 mg) ONE (08:24)
[2022-06-24] MEDS ORDERED: Flumazenil 0.5 mg/5 ml 0.1 MG/ML 5 ml VIAL ONE (08:24)
[2022-06-24 10:54] VITALS: BP 109/74
== END 2022-06-24 13:39 | disposition home or self-care (01) ==
LOC: ED 13:20 → EDHOLD 13:20 → SUATTDRO 21:17 → MEDTELE 06-24 02:03
PROVIDERS: ADMIT Student in an Organized Health Care Education/Training Program; ATTEND Internal Medicine
PROC: CARDVER (ICD-10-PCS; 2022-06-24 08:20)

== ENCOUNTER 2022-10-06 08:36 | Inpatient (IN) ==
[2022-10-06 09:22] LABS: ABS Eosinophils 0.1 10^3/ul (0-0.6); ABS Lymphocytes 0.9 10^3/ul (1.0-4.8); ABS Monocytes 0.4 10^3/ul (0-0.8); ABS Neutrophils 2.1 10^3/ul (1.5-7.7); Eosinophil % 3.2 %; Hematocrit 44 % (42-52); Hemoglobin 14.5 g/dL (14.0-18.0); Lymphocyte % 24.4 %; Mean Corpuscular HGB Conc 33 g/dL (31-36); Mean Corpuscular Hemoglobin 34 pg (27-31); Mean Corpuscular Volume 102 fL (80-94); Platelet Count 120 10^3/uL (150-450); Red Blood Count 4.28 10^6 /uL (4.18-5.48); Red Cell Distribution Width 15 % (10-15); White Blood Count 3.5 10^3/uL (3.5-10.8)
[2022-10-06 09:56] LABS: Albumin 3.8 g/dL (3.2-5.2); Albumin/Globulin Ratio 1.4 (1-3); Calcium 9.1 mg/dL (8.6-10.3); Creatinine, Serum 1.04 mg/dL (0.67-1.17); Globulin 2.8 g/dL (2-4); Potassium 3.9 mmol/L (3.5-5.0); Total Bilirubin 1.7 mg/dL (0.2-1.0); Total Protein 6.6 g/dL (6.4-8.9); eGFR CKD-EPI 72.6 (>60)
[2022-10-06] MEDS ORDERED: Furosemide 40 mg/4 ml IV VIAL IV ONE (10:01)
[2022-10-06 10:46] LABS: High Sensitivity Troponin 1 Hr 52 pg/mL (<20)
[2022-10-06 11:37] LABS: Urine Appearance Clear; Urine Bilirubin Negative (Negative); Urine Blood Negative (Negative); Urine Color Yellow; Urine Glucose Negative (Negative); Urine Ketones Negative (Negative); Urine Nitrite Negative (Negative); Urine Protein Negative (Negative); Urine Specific Gravity 1.008 (1.002-1.030); Urine Urobilinogen Negative (Negative)
[2022-10-06] MEDS ORDERED: Iohexol 350 (CONTRAST) 500 ML MDV IV ONE (14:08)
[2022-10-06] MEDS: CMC:Ketorolac 0.5% OPHTH (NF) 0.5 % 5 ML BTL BOTH EYES SCH (21:10)
[2022-10-07 05:59] LABS: ABS Eosinophils 0.2 10^3/ul (0-0.6); ABS Lymphocytes 1.3 10^3/ul (1.0-4.8); ABS Monocytes 0.5 10^3/ul (0-0.8); ABS Neutrophils 2.1 10^3/ul (1.5-7.7); Eosinophil % 4.7 %; Hematocrit 40 % (42-52); Hemoglobin 13.5 g/dL (14.0-18.0); Mean Corpuscular HGB Conc 34 g/dL (31-36); Mean Corpuscular Hemoglobin 34 pg (27-31); Mean Corpuscular Volume 100 fL (80-94); Mean Platelet Volume 8.5 fL (7.4-10.4); Nucleated Red Blood Cells % 0.1; Platelet Count 116 10^3/uL (150-450); Red Blood Count 3.99 10^6 /uL (4.18-5.48); Red Cell Distribution Width 15 % (10-15); White Blood Count 4.2 10^3/uL (3.5-10.8)
[2022-10-07 06:06] LABS: INR 1.78 (0.88-1.18)
[2022-10-07 06:21] LABS: Calcium 8.7 mg/dL (8.6-10.3); Creatinine, Serum 0.92 mg/dL (0.67-1.17); Magnesium 1.9 mg/dL (1.9-2.7); Potassium 3.4 mmol/L (3.5-5.0); Total Protein 5.7 g/dL (6.4-8.9); eGFR CKD-EPI 84.1 (>60)
[2022-10-07] MEDS: CICLOPIROX 0.77% TOPICAL SCH (08:48)
[2022-10-07] MEDS: CMC:Epleronone 25 mg TAB (NF) PO SCH (08:48)
[2022-10-07] MEDS ORDERED: Pneumococcal Vac 23-Polyvalent IM ONE (09:00)
[2022-10-07] MEDS ORDERED: Potassium Chlor 20 meq TAB.ER PO ONE ×2 (09:01→15:05)
[2022-10-07 11:07] LABS: Body Fluid Appearance Cloudy; Body Fluid Color Amber; Body Fluid Source Pleural Fluid
[2022-10-07 11:31] LABS: Body Fluid WBC 158 /mcL
[2022-10-07 11:44] LABS: Body Fluid Mono 21 %; Body Fluid Other Cells 480; Body Fluid Total Cells Counted 200
[2022-10-07] MEDS: CMC:Ketorolac 0.5% OPHTH (NF) 0.5 % 5 ML BTL BOTH EYES SCH (21:32)
[2022-10-08 06:34] LABS: ABS Eosinophils 0.2 10^3/ul (0-0.6); ABS Lymphocytes 1.1 10^3/ul (1.0-4.8); ABS Monocytes 0.4 10^3/ul (0-0.8); ABS Neutrophils 3.1 10^3/ul (1.5-7.7); Eosinophil % 3.5 %; Hematocrit 39 % (42-52); Hemoglobin 13.2 g/dL (14.0-18.0); Lymphocyte % 22.6 %; Mean Corpuscular HGB Conc 34 g/dL (31-36); Mean Corpuscular Hemoglobin 35 pg (27-31); Mean Corpuscular Volume 102 fL (80-94); Mean Platelet Volume 8.4 fL (7.4-10.4); Nucleated Red Blood Cells % 0.1; Platelet Count 101 10^3/uL (150-450); Red Blood Count 3.83 10^6 /uL (4.18-5.48); Red Cell Distribution Width 15 % (10-15); White Blood Count 4.8 10^3/uL (3.5-10.8)
[2022-10-08] MEDS ORDERED: NS 0.9% 1000 ml BAG 1,000 ML IV ONE (07:00)
[2022-10-08 07:16] LABS: Calcium 8.6 mg/dL (8.6-10.3); Creatinine, Serum 1.17 mg/dL (0.67-1.17); Potassium 3.9 mmol/L (3.5-5.0)
[2022-10-08] MEDS ORDERED: KCL 10 MEQ/50 ML IVPREMIX 10 MEQ/50 ML BAG IV ONE (07:20)
[2022-10-08 07:53] LABS: Magnesium 1.8 mg/dL (1.9-2.7)
[2022-10-08] MEDS: CMC:Epleronone 25 mg TAB (NF) PO SCH (08:00)
[2022-10-08] MEDS: CICLOPIROX 0.77% TOPICAL SCH (09:11)
[2022-10-08] MEDS ORDERED: Midazolam 5 mg/5 ml VIAL 1 mg/ml 5 ml VIAL (5 mg) ONE (10:51)
[2022-10-08] MEDS ORDERED: fentaNYL 100 mcg/2 ml 50 MCG/ML VIAL ONE (10:51)
[2022-10-08] MEDS ORDERED: Naloxone 0.4 mg VIAL 0.4 mg/ml 1 ml VIAL ONE (10:51)
[2022-10-08] MEDS ORDERED: Flumazenil 0.5 mg/5 ml 0.1 MG/ML 5 ml VIAL ONE (10:52)
[2022-10-08] MEDS ORDERED: fentaNYL 100 mcg/2 ml 50 MCG/ML VIAL IV SLOW PU ONE (12:17)
[2022-10-08] MEDS ORDERED: Midazolam 10 mg/10 ml VIAL 1 mg/ml 10 ml VIAL (10 mg) IV SLOW PU ONE (12:17)
[2022-10-08] MEDS: CMC:Ketorolac 0.5% OPHTH (NF) 0.5 % 5 ML BTL BOTH EYES SCH (21:31)
[2022-10-09 07:05] LABS: ABS Eosinophils 0.3 10^3/ul (0-0.6); ABS Lymphocytes 1.1 10^3/ul (1.0-4.8); ABS Monocytes 0.4 10^3/ul (0-0.8); ABS Neutrophils 2.7 10^3/ul (1.5-7.7); Eosinophil % 5.6 %; Hematocrit 40 % (42-52); Hemoglobin 13.4 g/dL (14.0-18.0); Lymphocyte % 25.2 %; Mean Corpuscular HGB Conc 34 g/dL (31-36); Mean Corpuscular Hemoglobin 34 pg (27-31); Mean Corpuscular Volume 101 fL (80-94); Mean Platelet Volume 8.8 fL (7.4-10.4); Nucleated Red Blood Cells % 0.1; Platelet Count 101 10^3/uL (150-450); Red Blood Count 3.93 10^6 /uL (4.18-5.48); Red Cell Distribution Width 15 % (10-15); White Blood Count 4.5 10^3/uL (3.5-10.8)
[2022-10-09 07:52] LABS: Calcium 8.5 mg/dL (8.6-10.3); Creatinine, Serum 0.97 mg/dL (0.67-1.17); Magnesium 1.8 mg/dL (1.9-2.7); Potassium 3.7 mmol/L (3.5-5.0); eGFR CKD-EPI 78.9 (>60)
[2022-10-09] MEDS: CMC:Epleronone 25 mg TAB (NF) PO SCH ×2 (08:25→08:26)
[2022-10-09] MEDS: CICLOPIROX 0.77% TOPICAL SCH (08:26)
[2022-10-09] MEDS ORDERED: Magnesium Chloride EC 64 mgTAB PO ONE (09:44)
[2022-10-09] MEDS ORDERED: Potassium Chlor 20 meq TAB.ER PO ONE (09:44)
[2022-10-09 10:26] VITALS: BP 91/55
[2022-10-09 15:05] LABS: Lactate Dehydrogenase, BF 78 U/L
[2022-10-10 10:00] LABS: Glucose, BF 113 mg/dL
[2022-10-10 10:03] LABS: Fluid Type, Protein, Total PLEURAL; Total Protein, BF 2.5 g/dL
[2022-10-10 10:05] LABS: Albumin, BF 1.8 g/dL; Fluid Type, Albumin PLEURAL
== END 2022-10-09 13:25 | disposition home or self-care (01) | DRG 292 ==
LOC: ED 08:36 → EDHOLD 08:36 → MEDTELE 22:24
PROVIDERS: ADMIT Internal Medicine; ATTEND Internal Medicine
PROC: CARDVER (ICD-10-PCS; 2022-10-08 11:05)

== ENCOUNTER 2023-01-05 08:28 | Inpatient (IN) ==
[2023-01-05 09:09] LABS: ABS Eosinophils 0.1 10^3/uL (0.0-0.5); ABS Lymphocytes 0.9 10^3/uL (1.0-4.8); ABS Monocytes 0.4 10^3/uL (0.0-1.1); ABS Nucleated RBC 0.01 10^3/ul; Eosinophil % 4.3 %; Hematocrit 31.8 % (38-53); Hemoglobin 11.2 g/dL (13.2-16.3); Lymphocyte % 26.7 %; Mean Corpuscular Hemoglobin 35.4 pg (27-33); Mean Corpuscular Hgb Conc 35.1 g/dL (31-36); Mean Corpuscular Volume 100.9 fL (80-97); Mean Platelet Volume 7.7 fL (7.5-11.2); Nucleated Red Blood Cells % 0.2 /100 WBC (0.0-0.4); Platelet Count 139 10^3/uL (150-450); Red Blood Count 3.15 10^6/uL (4.06-5.63); White Blood Count 3.4 10^3/uL (3.6-10.2)
[2023-01-05 09:41] LABS: INR 1.44 (0.88-1.18)
[2023-01-05 10:00] LABS: ALT 26 U/L (7-52); AST 33 U/L (13-39); Albumin 3.7 g/dL (3.2-5.2); Albumin/Globulin Ratio 1.4 (1-3); Alkaline Phosphatase 85 U/L (35-149); Anion Gap 5 mmol/L (2-16); Blood Urea Nitrogen 16 mg/dL (6-24); C Reactive Protein < 1.00 mg/L (<8.01); CO2 Carbon Dioxide 26 mmol/L (22-32); Calcium 8.8 mg/dL (8.6-10.3); Chloride 105 mmol/L (101-111); Creatinine, Serum 0.87 mg/dL (0.67-1.17); Globulin 2.6 g/dL (2-4); Glucose 93 mg/dL (70-100); Sodium 136 mmol/L (135-145); Total Protein 6.3 g/dL (6.4-8.9); eGFR CKD-EPI 87.2 (>60)
[2023-01-05] MEDS ORDERED: Iohexol 350 (CONTRAST) 500 ML MDV IV ONE (10:44)
[2023-01-05] MEDS ORDERED: Pantoprazole VIAL 40 MG VIAL IV ONE (12:55)
[2023-01-05] MEDS: Pantoprazole VIAL 40 MG VIAL IV SCH (20:10)
[2023-01-06 06:35] LABS: ABS Eosinophils 0.2 10^3/uL (0.0-0.5); ABS Lymphocytes 0.9 10^3/uL (1.0-4.8); ABS Monocytes 0.4 10^3/uL (0.0-1.1); ABS Neutrophils 1.7 10^3/uL (1.5-7.6); Eosinophil % 5.7 %; Hematocrit 27.9 % (38-53); Hemoglobin 9.8 g/dL (13.2-16.3); Lymphocyte % 27.5 %; Mean Corpuscular Hemoglobin 35.4 pg (27-33); Mean Corpuscular Hgb Conc 35.1 g/dL (31-36); Mean Corpuscular Volume 100.7 fL (80-97); Mean Platelet Volume 7.5 fL (7.5-11.2); Nucleated Red Blood Cells % 0.1 /100 WBC (0.0-0.4); Platelet Count 129 10^3/uL (150-450); Red Blood Count 2.77 10^6/uL (4.06-5.63); Red Cell Distribution Width 14.7 % (12-17); White Blood Count 3.1 10^3/uL (3.6-10.2)
[2023-01-06 07:03] LABS: Albumin 3.1 g/dL (3.2-5.2); Albumin/Globulin Ratio 1.5 (1-3); Calcium 8.3 mg/dL (8.6-10.3); Creatinine, Serum 0.88 mg/dL (0.67-1.17); Globulin 2.1 g/dL (2-4); Magnesium 1.9 mg/dL (1.9-2.7); Potassium 4.1 mmol/L (3.5-5.0); Total Bilirubin 1.1 mg/dL (0.2-1.0); Total Protein 5.2 g/dL (6.4-8.9); eGFR CKD-EPI 86.9 (>60)
[2023-01-06 07:07] LABS: Corrected Retic Count 1.5 % (0.5-1.5); Hematocrit for Retic CNT 27.5 % (38-53); RBC Retic Count 2.75 10^6/ul (4.06-5.63)
[2023-01-06] MEDS: Pantoprazole VIAL 40 MG VIAL IV SCH ×2 (08:32→20:46)
[2023-01-06] MEDS: CMCS: Epleronone 25 mg TAB (NF) PO SCH (08:33)
[2023-01-06] MEDS ORDERED: Potassium Chlor 20 meq TAB.ER PO SCH (09:00)
[2023-01-06] MEDS: TAFAMIDIS 61 MG PO SCH (12:06)
[2023-01-06] MEDS ORDERED: Propofol 10 MG/ML 20 ML BTL ONE (13:54)
[2023-01-06] MEDS ORDERED: Etomidate 20 mg/10 ml 2 MG/ML 10 ml VIAL ONE (14:01)
[2023-01-06] MEDS ORDERED: Ondansetron 4 mg VIAL 2 MG/ML 2 ml VIAL ONE (14:21)
[2023-01-06] MEDS ORDERED: Phenylephrine 40 mcg/mL 10mL (400mcg) SYRINGE ONE ×2 (14:24)
[2023-01-06] MEDS ORDERED: EPINEPHrine SYR 0.1MG/ML 10 ml SYRINGE IV ONE (14:31)
[2023-01-06] MEDS ORDERED: Norepinephrine 16MCG/ML BAGD5W 4,000 MCG/250 ML BAG IV SCH (15:00)
[2023-01-07 06:08] LABS: ABS Eosinophils 0.2 10^3/uL (0.0-0.5); ABS Lymphocytes 1.1 10^3/uL (1.0-4.8); ABS Monocytes 0.4 10^3/uL (0.0-1.1); ABS Neutrophils 1.8 10^3/uL (1.5-7.6); Eosinophil % 5.1 %; Hematocrit 29.6 % (38-53); Hemoglobin 10.4 g/dL (13.2-16.3); Lymphocyte % 31.3 %; Mean Corpuscular Hemoglobin 35.4 pg (27-33); Mean Corpuscular Hgb Conc 35.1 g/dL (31-36); Mean Corpuscular Volume 101.1 fL (80-97); Mean Platelet Volume 7.5 fL (7.5-11.2); Nucleated Red Blood Cells % 0.1 /100 WBC (0.0-0.4); Platelet Count 137 10^3/uL (150-450); Red Blood Count 2.93 10^6/uL (4.06-5.63); Red Cell Distribution Width 15.5 % (12-17); White Blood Count 3.6 10^3/uL (3.6-10.2)
[2023-01-07 06:29] LABS: Calcium 8.5 mg/dL (8.6-10.3); Creatinine, Serum 0.92 mg/dL (0.67-1.17); Potassium 4.3 mmol/L (3.5-5.0); eGFR CKD-EPI 84.1 (>60)
[2023-01-07 09:15] LABS: Folate 16.91 ng/mL (5.90-24.80)
[2023-01-07] MEDS: CMCS: Epleronone 25 mg TAB (NF) PO SCH (09:49)
[2023-01-07] MEDS: Pantoprazole VIAL 40 MG VIAL IV SCH ×2 (09:50→21:10)
[2023-01-07] MEDS: TAFAMIDIS 61 MG PO SCH (09:50)
[2023-01-07] MEDS ORDERED: Polyethylene Glycol 3350 17 GM PACKET PO PRN (14:38)
[2023-01-08 06:07] LABS: ABS Eosinophils 0.2 10^3/uL (0.0-0.5); ABS Lymphocytes 0.9 10^3/uL (1.0-4.8); ABS Monocytes 0.4 10^3/uL (0.0-1.1); ABS Neutrophils 1.5 10^3/uL (1.5-7.6); Eosinophil % 6.1 %; Hematocrit 27.1 % (38-53); Hemoglobin 9.4 g/dL (13.2-16.3); Lymphocyte % 28.9 %; Mean Corpuscular Hemoglobin 34.9 pg (27-33); Mean Corpuscular Hgb Conc 34.9 g/dL (31-36); Mean Corpuscular Volume 100.1 fL (80-97); Mean Platelet Volume 7.7 fL (7.5-11.2); Nucleated Red Blood Cells % 0.1 /100 WBC (0.0-0.4); Platelet Count 131 10^3/uL (150-450); Red Cell Distribution Width 15.1 % (12-17)
[2023-01-08] MEDS: Pantoprazole VIAL 40 MG VIAL IV SCH (09:38)
[2023-01-08] MEDS: CMCS: Epleronone 25 mg TAB (NF) PO SCH (09:40)
[2023-01-08] MEDS: TAFAMIDIS 61 MG PO SCH (09:42)
[2023-01-08 12:21] LABS: ABS Eosinophils 0.1 10^3/uL (0.0-0.5); ABS Lymphocytes 0.8 10^3/uL (1.0-4.8); ABS Monocytes 0.4 10^3/uL (0.0-1.1); ABS Neutrophils 1.7 10^3/uL (1.5-7.6); Eosinophil % 4.4 %; Hematocrit 28.1 % (38-53); Hemoglobin 9.8 g/dL (13.2-16.3); Lymphocyte % 25.7 %; Mean Corpuscular Hemoglobin 35.7 pg (27-33); Mean Corpuscular Volume 101.9 fL (80-97); Mean Platelet Volume 7.1 fL (7.5-11.2); Nucleated Red Blood Cells % 0.1 /100 WBC (0.0-0.4); Platelet Count 128 10^3/uL (150-450); Red Blood Count 2.76 10^6/uL (4.06-5.63); Red Cell Distribution Width 15.4 % (12-17)
[2023-01-08 13:49] VITALS: BP 95/56
== END 2023-01-08 17:30 | disposition home or self-care (01) | DRG 378 ==
LOC: EDHOLD 08:28 → ED 08:28 → EDHOLD 16:04 → MED 16:54 → SUATTDRO 01-06 11:42
PROVIDERS: ADMIT Internal Medicine; ATTEND Internal Medicine
PROC: O.GIEGD (2023-01-06 13:40)

== ENCOUNTER 2023-05-12 08:48 | Inpatient (IN) ==
[2023-05-12 15:14] LABS: ABS Eosinophils 0.1 10^3/uL (0.0-0.5); ABS Lymphocytes 0.8 10^3/uL (1.0-4.8); ABS Monocytes 0.6 10^3/uL (0.0-1.1); Eosinophil % 3.5 %; Hematocrit 37.2 % (38-53); Mean Corpuscular Hemoglobin 33.9 pg (27-33); Mean Corpuscular Volume 96.8 fL (80-97); Mean Platelet Volume 7.7 fL (7.5-11.2); Nucleated Red Blood Cells % 0.1 /100 WBC (0.0-0.4); Platelet Count 149 10^3/uL (150-450); Red Blood Count 3.85 10^6/uL (4.06-5.63); White Blood Count 3.6 10^3/uL (3.6-10.2)
[2023-05-12 15:33] LABS: Albumin 3.6 g/dL (3.2-5.2); Magnesium 1.9 mg/dL (1.9-2.7); Total Bilirubin 1.3 mg/dL (0.2-1.0)
[2023-05-12 15:39] LABS: Albumin/Globulin Ratio 1.1 (1-3); C Reactive Protein 8.41 mg/L (<8.01); Creatinine, Serum 0.91 mg/dL (0.67-1.17); Globulin 3.2 g/dL (2-4); Total Protein 6.8 g/dL (6.4-8.9); eGFR CKD-EPI 84.7 (>60)
[2023-05-12 16:52] LABS: High Sensitivity Troponin 1 Hr 153 pg/mL (<20)
[2023-05-12] MEDS ORDERED: Iodixanol (CONTRAST) 320 MG/ML 100 ML SDV IV ONE (18:59)
[2023-05-12] MEDS: TAFAMIDIS 61 MG PO SCH (21:46)
[2023-05-12] MEDS ORDERED: Heparin DRIP 25,000 UNITS BAG 25,000 UNITS/500 ML BAG IV SCH (23:30)
[2023-05-12 23:38] LABS: ABS Eosinophils 0.1 10^3/uL (0.0-0.5); ABS Lymphocytes 0.8 10^3/uL (1.0-4.8); ABS Monocytes 0.5 10^3/uL (0.0-1.1); ABS Neutrophils 2.3 10^3/uL (1.5-7.6); Eosinophil % 3.8 %; Hemoglobin 12.7 g/dL (13.2-16.3); Lymphocyte % 20.2 %; Mean Corpuscular Hemoglobin 33.2 pg (27-33); Mean Corpuscular Hgb Conc 34.5 g/dL (31-36); Mean Corpuscular Volume 96.4 fL (80-97); Mean Platelet Volume 7.5 fL (7.5-11.2); Nucleated Red Blood Cells % 0.1 /100 WBC (0.0-0.4); Platelet Count 146 10^3/uL (150-450); Red Blood Count 3.83 10^6/uL (4.06-5.63); Red Cell Distribution Width 17.5 % (12-17); White Blood Count 3.7 10^3/uL (3.6-10.2)
[2023-05-12] MEDS ORDERED: Heparin 5000 UNITS/ML 1 mL VIAL IV SCH (23:45)
[2023-05-12 23:54] LABS: Creatinine, Serum 1.03 mg/dL (0.67-1.17)
[2023-05-13 06:39] LABS: ABS Eosinophils 0.2 10^3/uL (0.0-0.5); ABS Lymphocytes 0.7 10^3/uL (1.0-4.8); ABS Monocytes 0.5 10^3/uL (0.0-1.1); ABS Neutrophils 2.2 10^3/uL (1.5-7.6); Hematocrit 35.2 % (38-53); Hemoglobin 12.5 g/dL (13.2-16.3); Lymphocyte % 19.3 %; Mean Corpuscular Hemoglobin 33.9 pg (27-33); Mean Corpuscular Hgb Conc 35.5 g/dL (31-36); Mean Corpuscular Volume 95.6 fL (80-97); Mean Platelet Volume 7.6 fL (7.5-11.2); Nucleated Red Blood Cells % 0.1 /100 WBC (0.0-0.4); Platelet Count 142 10^3/uL (150-450); Red Blood Count 3.68 10^6/uL (4.06-5.63); Red Cell Distribution Width 17.7 % (12-17); White Blood Count 3.6 10^3/uL (3.6-10.2)
[2023-05-13 07:00] LABS: Calcium 8.9 mg/dL (8.6-10.3); Creatinine, Serum 0.91 mg/dL (0.67-1.17); Magnesium 1.9 mg/dL (1.9-2.7); Potassium 3.9 mmol/L (3.5-5.0); eGFR CKD-EPI 84.7 (>60)
[2023-05-13 17:48] LABS: Body Fluid Appearance Clear; Body Fluid Color Yellow; Body Fluid Source Pleural Fluid
[2023-05-13 18:21] LABS: Body Fluid WBC 185 /mcL
[2023-05-13] MEDS ORDERED: Heparin DRIP 25,000 UNITS BAG 25,000 UNITS/500 ML BAG IV SCH (19:00)
[2023-05-13] MEDS ORDERED: Heparin 5000 UNITS/ML 1 mL VIAL IV SCH (19:00)
[2023-05-13 19:41] LABS: Body Fluid Mono 57 %; Body Fluid Total Cells Counted 187
[2023-05-13] MEDS: TAFAMIDIS 61 MG PO SCH (20:19)
[2023-05-14] MEDS ORDERED: CMCS:Epleronone 25 mg TAB (NF) PO SCH (06:00)
[2023-05-14 06:14] LABS: Hematocrit 32.7 % (38-53); Hemoglobin 11.4 g/dL (13.2-16.3); Mean Corpuscular Hemoglobin 33.7 pg (27-33); Mean Corpuscular Hgb Conc 34.7 g/dL (31-36); Red Blood Count 3.37 10^6/uL (4.06-5.63); White Blood Count 4.2 10^3/uL (3.6-10.2)
[2023-05-14 06:15] LABS: Mean Platelet Volume 7.6 fL (7.5-11.2); Platelet Count 137 10^3/uL (150-450); Red Cell Distribution Width 17.5 % (12-17)
[2023-05-14 08:26] LABS: Anisocytosis 1+
[2023-05-14 08:28] LABS: ABS Lymphocytes 1.1 10^3/ul (1.0-4.8); ABS Neutrophils 2.5 10^3/ul (1.5-7.7); Burr Cells 1+
[2023-05-14 08:29] LABS: ABS Eosinophils 0.2 10^3/ul (0-0.6); ABS Monocytes 0.4 10^3/ul (0-0.8)
[2023-05-14 08:30] LABS: Lymphocyte % 20.5 %; Nucleated Red Blood Cells % 0.1 /100 WBC (0.0-0.4)
[2023-05-14] MEDS: Enoxaparin 80 MG/0.8 ML SYR SUBCUT SCH ×2 (11:01→21:50)
[2023-05-14 14:28] LABS: Hematocrit 34.3 % (38-53)
[2023-05-14] MEDS: TAFAMIDIS 61 MG PO SCH (21:50)
[2023-05-15 07:09] LABS: ABS Eosinophils 0.1 10^3/uL (0.0-0.5); ABS Lymphocytes 0.8 10^3/uL (1.0-4.8); ABS Monocytes 0.6 10^3/uL (0.0-1.1); ABS Neutrophils 1.9 10^3/uL (1.5-7.6); Eosinophil % 2.8 %; Hematocrit 33.2 % (38-53); Hemoglobin 11.7 g/dL (13.2-16.3); Lymphocyte % 22.1 %; Mean Corpuscular Hemoglobin 33.6 pg (27-33); Mean Corpuscular Hgb Conc 35.3 g/dL (31-36); Mean Corpuscular Volume 95.2 fL (80-97); Mean Platelet Volume 7.4 fL (7.5-11.2); Nucleated Red Blood Cells % 0.1 /100 WBC (0.0-0.4); Platelet Count 151 10^3/uL (150-450); Red Blood Count 3.49 10^6/uL (4.06-5.63); Red Cell Distribution Width 17.2 % (12-17); White Blood Count 3.5 10^3/uL (3.6-10.2)
[2023-05-15 07:22] LABS: Creatinine, Serum 0.95 mg/dL (0.67-1.17); eGFR CKD-EPI 80.4 (>60)
[2023-05-15 10:25] VITALS: BP 96/60
[2023-05-15] MEDS: Enoxaparin 80 MG/0.8 ML SYR SUBCUT SCH (11:00)
[2023-05-17 09:55] LABS: Lactate Dehydrogenase, BF 83 U/L
[2023-05-17 10:01] LABS: Albumin, BF 1.8 g/dL; Fluid Type, Albumin PLEURAL; Glucose, BF 123 mg/dL
== END 2023-05-15 13:45 | disposition home or self-care (01) | DRG 176 ==
LOC: EDHOLD 08:48 → ED 08:48 → SUATTDRO 16:59 → MEDTELE 20:58
PROVIDERS: ADMIT Internal Medicine; ATTEND Hospitalist

== ENCOUNTER 2023-05-22 16:29 | Inpatient (IN) ==
[2023-05-22 18:06] LABS: ABS Lymphocytes 0.6 10^3/uL (1.0-4.8); ABS Monocytes 0.6 10^3/uL (0.0-1.1); ABS Neutrophils 2.9 10^3/uL (1.5-7.6); ABS Nucleated RBC 0.01 10^3/ul; Eosinophil % 0.1 %; Hematocrit 35.3 % (38-53); Hemoglobin 12.2 g/dL (13.2-16.3); Lymphocyte % 15.1 %; Mean Corpuscular Hemoglobin 33.1 pg (27-33); Mean Corpuscular Hgb Conc 34.6 g/dL (31-36); Mean Corpuscular Volume 95.7 fL (80-97); Mean Platelet Volume 7.4 fL (7.5-11.2); Nucleated Red Blood Cells % 0.1 /100 WBC (0.0-0.4); Platelet Count 159 10^3/uL (150-450); Red Blood Count 3.69 10^6/uL (4.06-5.63); Red Cell Distribution Width 17.1 % (12-17); White Blood Count 4.1 10^3/uL (3.6-10.2)
[2023-05-22 18:18] LABS: Albumin 3.4 g/dL (3.2-5.2); Calcium 8.5 mg/dL (8.6-10.3); Total Bilirubin 1.1 mg/dL (0.2-1.0)
[2023-05-22 18:24] LABS: Albumin/Globulin Ratio 1.1 (1-3); Creatinine, Serum 1.09 mg/dL (0.67-1.17); Globulin 3.1 g/dL (2-4); Total Protein 6.5 g/dL (6.4-8.9); eGFR CKD-EPI 68.2 (>60)
[2023-05-22] MEDS ORDERED: Furosemide 40 mg/4 ml IV VIAL IV SLOW PU ONE (18:46)
[2023-05-22 19:46] LABS: TSH Ultra Thyroid Stim Horm 8.27 mcIU/mL (0.34-5.60)
[2023-05-22 19:47] LABS: Free T3 1.7 pg/mL (2.5-3.9)
[2023-05-22 19:48] LABS: Free T4 1.11 ng/dL (0.61-1.12)
[2023-05-22 20:00] LABS: High Sensitivity Troponin 1 Hr 221 pg/mL (<20)
[2023-05-22] MEDS ORDERED: Enoxaparin 80 MG/0.8 ML SYR SUBCUT ONE (20:27)
[2023-05-23] MEDS ORDERED: NS 0.9% 500 ml BAG 500 ML IV SCH (01:00)
[2023-05-23 01:22] LABS: Ferritin 59.7 ng/mL (24-336)
[2023-05-23 05:25] LABS: Osmolality Serum 276 mOsm/kg (275-295)
[2023-05-23] MEDS ORDERED: Furosemide 40 mg/4 ml IV VIAL IV SCH (06:00)
[2023-05-23 06:13] LABS: ABS Basophils 0.1 10^3/uL (0.0-0.1); ABS Lymphocytes 0.6 10^3/uL (1.0-4.8); ABS Monocytes 0.6 10^3/uL (0.0-1.1); ABS Neutrophils 2.6 10^3/uL (1.5-7.6); ABS Nucleated RBC 0.01 10^3/ul; Eosinophil % 0.1 %; Hematocrit 35.1 % (38-53); Hemoglobin 12.3 g/dL (13.2-16.3); Lymphocyte % 15.5 %; Mean Corpuscular Hemoglobin 33.2 pg (27-33); Mean Corpuscular Volume 95.1 fL (80-97); Mean Platelet Volume 7.1 fL (7.5-11.2); Nucleated Red Blood Cells % 0.2 /100 WBC (0.0-0.4); Platelet Count 158 10^3/uL (150-450); Red Blood Count 3.69 10^6/uL (4.06-5.63); White Blood Count 3.9 10^3/uL (3.6-10.2)
[2023-05-23 06:32] LABS: Urine Osmo 495 mOsm/kg (150-1150)
[2023-05-23 06:42] LABS: Creatinine, Serum 1.04 mg/dL (0.67-1.17); Potassium 3.3 mmol/L (3.5-5.0); eGFR CKD-EPI 72.1 (>60)
[2023-05-23] MEDS ORDERED: Potassium Chlor 20 meq TAB.ER PO ONE (07:21)
[2023-05-23] MEDS ORDERED: Enoxaparin 80 MG/0.8 ML SYR SUBCUT SCH (08:00)
[2023-05-23] MEDS ORDERED: Furosemide 40 mg/4 ml IV VIAL IV SLOW PU ONE (13:38)
[2023-05-23 17:41] LABS: Calcium 8.5 mg/dL (8.6-10.3); Creatinine, Serum 1.11 mg/dL (0.67-1.17); Potassium 3.9 mmol/L (3.5-5.0); eGFR CKD-EPI 66.7 (>60)
[2023-05-24 06:43] LABS: Hematocrit 35.4 % (38-53); Hemoglobin 12.2 g/dL (13.2-16.3); Mean Corpuscular Hemoglobin 33.1 pg (27-33); Mean Corpuscular Hgb Conc 34.6 g/dL (31-36); Mean Corpuscular Volume 95.9 fL (80-97); Mean Platelet Volume 7.5 fL (7.5-11.2); Platelet Count 139 10^3/uL (150-450); Red Blood Count 3.69 10^6/uL (4.06-5.63); White Blood Count 3.7 10^3/uL (3.6-10.2)
[2023-05-24 06:58] LABS: ABS Lymphocytes 0.7 10^3/uL (1.0-4.8); ABS Monocytes 0.6 10^3/uL (0.0-1.1); ABS Neutrophils 2.3 10^3/uL (1.5-7.6); Eosinophil % 0.2 %; Lymphocyte % 19.6 %; Nucleated Red Blood Cells % 0.1 /100 WBC (0.0-0.4)
[2023-05-24 07:02] LABS: Calcium 8.4 mg/dL (8.6-10.3); Creatinine, Serum 1.13 mg/dL (0.67-1.17); Magnesium 2.1 mg/dL (1.9-2.7); Potassium 3.9 mmol/L (3.5-5.0); eGFR CKD-EPI 65.3 (>60)
[2023-05-24 07:32] LABS: Thyroid Peroxidase Antibodies 1.85 IU/mL (<9)
[2023-05-24] MEDS ORDERED: Potassium Chlor 10 meq TAB PO ONE (07:40)
[2023-05-24 09:52] LABS: Body Fluid Appearance Cloudy; Body Fluid Color Yellow; Body Fluid Source Pleural Fluid
[2023-05-24 09:57] LABS: Body Fluid WBC 102 /mcL
[2023-05-24 10:37] LABS: Body Fluid Mono 75 %; Body Fluid Other Cells 7; Body Fluid Total Cells Counted 200
[2023-05-24] MEDS: Enoxaparin 80 MG/0.8 ML SYR SUBCUT SCH (14:21)
[2023-05-24 14:49] LABS: Albumin 3.2 g/dL (3.2-5.2); Direct Bilirubin 0.3 mg/dL (0.03-0.18); Indirect Bilirubin 0.7 mg/dL (0.3-1.0)
[2023-05-24 14:55] LABS: Total Protein 6.2 g/dL (6.4-8.9)
[2023-05-25] MEDS: Enoxaparin 80 MG/0.8 ML SYR SUBCUT SCH ×2 (06:38→17:37)
[2023-05-25 06:42] LABS: ABS Lymphocytes 0.6 10^3/uL (1.0-4.8); ABS Monocytes 0.6 10^3/uL (0.0-1.1); ABS Neutrophils 2.1 10^3/uL (1.5-7.6); Eosinophil % 0.7 %; Hematocrit 34.4 % (38-53); Lymphocyte % 18.7 %; Mean Corpuscular Hemoglobin 33.1 pg (27-33); Mean Corpuscular Hgb Conc 34.9 g/dL (31-36); Mean Corpuscular Volume 94.9 fL (80-97); Mean Platelet Volume 7.6 fL (7.5-11.2); Platelet Count 143 10^3/uL (150-450); Red Blood Count 3.62 10^6/uL (4.06-5.63); Red Cell Distribution Width 16.9 % (12-17); White Blood Count 3.3 10^3/uL (3.6-10.2)
[2023-05-25 06:57] LABS: Albumin 3.1 g/dL (3.2-5.2); Calcium 8.2 mg/dL (8.6-10.3); Creatinine, Serum 0.94 mg/dL (0.67-1.17); Potassium 3.8 mmol/L (3.5-5.0); Total Bilirubin 0.9 mg/dL (0.2-1.0); Total Protein 6.1 g/dL (6.4-8.9); eGFR CKD-EPI 81.4 (>60)
[2023-05-25 12:07] LABS: Urine Appearance Clear; Urine Bilirubin Negative (Negative); Urine Blood Negative (Negative); Urine Color Amber; Urine Glucose Negative (Negative); Urine Ketones Negative (Negative); Urine Nitrite Negative (Negative); Urine Protein 1+(30 mg/dL) (Negative); Urine Specific Gravity 1.021 (1.002-1.030); Urine Urobilinogen Positive (Negative)
[2023-05-25 12:12] LABS: Urine Bacteria Absent (Absent); Urine Red Blood Cell Trace(0-2/hpf) (Absent); Urine White Blood Cell Trace(0-5/hpf) (Absent)
[2023-05-26 06:17] LABS: Hematocrit 33.7 % (38-53); Hemoglobin 11.9 g/dL (13.2-16.3); Mean Corpuscular Hemoglobin 33.3 pg (27-33); Mean Corpuscular Hgb Conc 35.2 g/dL (31-36); Mean Corpuscular Volume 94.6 fL (80-97); Mean Platelet Volume 7.5 fL (7.5-11.2); Platelet Count 137 10^3/uL (150-450); Red Blood Count 3.56 10^6/uL (4.06-5.63); Red Cell Distribution Width 17.1 % (12-17); White Blood Count 3.7 10^3/uL (3.6-10.2)
[2023-05-26] MEDS: Enoxaparin 80 MG/0.8 ML SYR SUBCUT SCH ×2 (06:26→17:36)
[2023-05-26 06:36] LABS: Creatinine, Serum 0.85 mg/dL (0.67-1.17); Potassium 3.8 mmol/L (3.5-5.0); eGFR CKD-EPI 87.3 (>60)
[2023-05-26 06:54] LABS: ABS Lymphocytes 0.7 10^3/uL (1.0-4.8); ABS Monocytes 0.6 10^3/uL (0.0-1.1); ABS Neutrophils 2.3 10^3/uL (1.5-7.6); ABS Nucleated RBC 0.01 10^3/ul; Eosinophil % 1.3 %; Nucleated Red Blood Cells % 0.2 /100 WBC (0.0-0.4)
[2023-05-26 07:46] LABS: High Sensitivity Troponin 1 Hr 142 pg/mL (<20)
[2023-05-26] MEDS: Ure-Na 15 GM POWD.PACK PO SCH (12:13)
[2023-05-26 13:11] LABS: Fluid Type, Amylase RIGHT PLEURAL FLUID; Fluid Type, Protein, Total RIGHT PLEURAL FLUID; Glucose, BF 113 mg/dL; Total Protein, BF 2.6 g/dL
[2023-05-26] MEDS ORDERED: Furosemide 20 mg/2 ml IV VIAL IV ONE (13:51)
[2023-05-26 14:14] LABS: Lactate Dehydrogenase, BF 74 U/L
[2023-05-27 03:39] LABS: Urine Appearance Clear; Urine Bilirubin Negative (Negative); Urine Blood 1+ (Negative); Urine Color Yellow; Urine Glucose Negative (Negative); Urine Ketones Negative (Negative); Urine Nitrite Negative (Negative); Urine Protein Negative (Negative); Urine Specific Gravity 1.011 (1.002-1.030); Urine Urobilinogen Positive (Negative)
[2023-05-27 03:44] LABS: Urine Bacteria Absent (Absent); Urine Red Blood Cell Trace(0-2/hpf) (Absent); Urine White Blood Cell Trace(0-5/hpf) (Absent)
[2023-05-27] MEDS: Enoxaparin 80 MG/0.8 ML SYR SUBCUT SCH ×2 (06:27→19:15)
[2023-05-27 06:29] LABS: Hematocrit 32.5 % (38-53); Hemoglobin 11.5 g/dL (13.2-16.3); Mean Corpuscular Hemoglobin 33.3 pg (27-33); Mean Corpuscular Hgb Conc 35.3 g/dL (31-36); Mean Corpuscular Volume 94.3 fL (80-97); Mean Platelet Volume 7.6 fL (7.5-11.2); Platelet Count 145 10^3/uL (150-450); Red Blood Count 3.45 10^6/uL (4.06-5.63); Red Cell Distribution Width 16.7 % (12-17); White Blood Count 4.6 10^3/uL (3.6-10.2)
[2023-05-27 06:48] LABS: Calcium 8.1 mg/dL (8.6-10.3); Creatinine, Serum 0.98 mg/dL (0.67-1.17); Potassium 3.9 mmol/L (3.5-5.0); eGFR CKD-EPI 77.5 (>60)
[2023-05-27 07:58] LABS: ABS Eosinophils 0.1 10^3/uL (0.0-0.5); ABS Eosinophils 0.1 10^3/ul (0.0-0.5); ABS Lymphocytes 0.8 10^3/uL (1.0-4.8); ABS Lymphocytes 0.9 10^3/ul (1.0-4.8); ABS Monocytes 0.2 10^3/ul (0.0-1.1); ABS Monocytes 0.6 10^3/uL (0.0-1.1); ABS Neutrophils 3.1 10^3/uL (1.5-7.6); ABS Neutrophils 3.5 10^3/ul (1.5-7.6); Eosinophil % 1.6 %; Lymphocyte % 16.5 %; Nucleated Red Blood Cells % 0.1 /100 WBC (0.0-0.4); RBC Morphology Normal (Normal)
[2023-05-27] MEDS ORDERED: Furosemide 40 mg/4 ml IV VIAL IV SLOW PU ONE (09:20)
[2023-05-27] MEDS: Ure-Na 15 GM POWD.PACK PO SCH (09:34)
[2023-05-27] MEDS ORDERED: CMCS: Epleronone 25 mg TAB (NF) PO SCH (12:00)
[2023-05-28] MEDS: Enoxaparin 80 MG/0.8 ML SYR SUBCUT SCH ×2 (05:23→18:14)
[2023-05-28 06:42] LABS: ABS Eosinophils 0.1 10^3/uL (0.0-0.5); ABS Lymphocytes 0.8 10^3/uL (1.0-4.8); ABS Monocytes 0.5 10^3/uL (0.0-1.1); ABS Neutrophils 2.4 10^3/uL (1.5-7.6); ABS Nucleated RBC 0.01 10^3/ul; Eosinophil % 2.7 %; Hematocrit 33.7 % (38-53); Hemoglobin 11.9 g/dL (13.2-16.3); Lymphocyte % 21.3 %; Mean Corpuscular Hemoglobin 33.3 pg (27-33); Mean Corpuscular Hgb Conc 35.3 g/dL (31-36); Mean Corpuscular Volume 94.3 fL (80-97); Mean Platelet Volume 7.5 fL (7.5-11.2); Nucleated Red Blood Cells % 0.2 /100 WBC (0.0-0.4); Platelet Count 171 10^3/uL (150-450); Red Blood Count 3.57 10^6/uL (4.06-5.63); Red Cell Distribution Width 16.7 % (12-17); White Blood Count 3.9 10^3/uL (3.6-10.2)
[2023-05-28 06:52] LABS: Calcium 8.2 mg/dL (8.6-10.3); Creatinine, Serum 0.79 mg/dL (0.67-1.17); Potassium 3.1 mmol/L (3.5-5.0); eGFR CKD-EPI 89.2 (>60)
[2023-05-28] MEDS ORDERED: Furosemide 40 mg/4 ml IV VIAL IV ONE (08:42)
[2023-05-28] MEDS: CMCS: Epleronone 25 mg TAB (NF) PO SCH (10:06)
[2023-05-28] MEDS: Potassium Chlor 20 meq TAB.ER PO ONE ×2 (18:14→18:15)
[2023-05-28] MEDS ORDERED: Potassium Chlor 20 meq TAB.ER PO ONE (20:00)
[2023-05-29] MEDS: Enoxaparin 80 MG/0.8 ML SYR SUBCUT SCH ×2 (05:03→17:22)
[2023-05-29 06:58] LABS: ABS Eosinophils 0.1 10^3/uL (0.0-0.5); ABS Lymphocytes 0.9 10^3/uL (1.0-4.8); ABS Monocytes 0.5 10^3/uL (0.0-1.1); ABS Neutrophils 2.5 10^3/uL (1.5-7.6); Lymphocyte % 21.1 %; Mean Corpuscular Hgb Conc 35.3 g/dL (31-36); Mean Corpuscular Volume 93.6 fL (80-97); Mean Platelet Volume 7.3 fL (7.5-11.2); Nucleated Red Blood Cells % 0.1 %/100WBC (0.0-0.8); Platelet Count 190 10^3/uL (150-450); Red Blood Count 3.63 10^6/uL (4.06-5.63); Red Cell Distribution Width 16.5 % (12-17); White Blood Count 4.1 10^3/uL (3.6-10.2)
[2023-05-29 07:15] LABS: Albumin 3.1 g/dL (3.2-5.2); Calcium 8.3 mg/dL (8.6-10.3); Creatinine, Serum 0.78 mg/dL (0.67-1.17); Magnesium 1.9 mg/dL (1.9-2.7); Potassium 3.7 mmol/L (3.5-5.0); Total Protein 6.1 g/dL (6.4-8.9); eGFR CKD-EPI 89.6 (>60)
[2023-05-29] MEDS ORDERED: Midazolam 5 mg/5 ml VIAL 1 mg/ml 5 ml VIAL (5 mg) ONE (10:42)
[2023-05-29] MEDS ORDERED: Naloxone 0.4 mg VIAL 0.4 mg/ml 1 ml VIAL ONE (10:43)
[2023-05-29] MEDS ORDERED: Flumazenil 0.5 mg/5 ml 0.1 MG/ML 5 ml VIAL ONE (10:43)
[2023-05-29] MEDS ORDERED: fentaNYL 100 mcg/2 ml 50 MCG/ML VIAL ONE (10:43)
[2023-05-29] MEDS ORDERED: Phenylephrine 40 mcg/mL 10mL (400mcg) SYRINGE ONE (11:05)
[2023-05-29] MEDS ORDERED: fentaNYL 100 mcg/2 ml 50 MCG/ML VIAL IV SLOW PU ONE (11:22)
[2023-05-29] MEDS ORDERED: Lidocaine 2% JELLY 6 ML Topical TOPICAL ONE (11:22)
[2023-05-29] MEDS ORDERED: Flumazenil 0.5 mg/5 ml 0.1 MG/ML 5 ml VIAL IV PRN (11:22)
[2023-05-29] MEDS ORDERED: Midazolam 10 mg/10 ml VIAL 1 mg/ml 10 ml VIAL (10 mg) IV SLOW PU ONE (11:22)
[2023-05-29] MEDS ORDERED: Naloxone 0.4 mg VIAL 0.4 mg/ml 1 ml VIAL IV PUSH PRN (11:22)
[2023-05-29] MEDS: CMCS: Epleronone 25 mg TAB (NF) PO SCH (13:14)
[2023-05-30] MEDS: Enoxaparin 80 MG/0.8 ML SYR SUBCUT SCH ×2 (05:24→18:06)
[2023-05-30] MEDS: CMCS: Epleronone 25 mg TAB (NF) PO SCH (09:11)
[2023-05-30 09:49] LABS: Calcium 8.6 mg/dL (8.6-10.3); Creatinine, Serum 0.85 mg/dL (0.67-1.17); Potassium 3.9 mmol/L (3.5-5.0); eGFR CKD-EPI 87.3 (>60)
[2023-05-31] MEDS: Enoxaparin 80 MG/0.8 ML SYR SUBCUT SCH (05:18)
[2023-05-31 07:52] VITALS: BP 107/68
[2023-05-31] MEDS: CMCS: Epleronone 25 mg TAB (NF) PO SCH (08:58)
== END 2023-05-31 09:55 | DRG 189 ==
LOC: EDHOLD 16:29 → ED 16:29 → SUATTDRO 20:58 → MEDTELE 05-23 12:53 → SUATTDRO 05-24 11:13
PROVIDERS: ADMIT Student in an Organized Health Care Education/Training Program; ATTEND Internal Medicine
PROC: CARDVER (ICD-10-PCS; 2023-05-29 10:20)

== ENCOUNTER 2023-05-31 09:57 | Inpatient (IN) ==
[~2023-05-31 09:57] MED LIST changes: -Acetaminophen TAB* 325 MG PO PRN; -Buffered Lidocaine 0.9% SYRIN* 5 ML/SYR SYRINGE INTRADERM ONE; +Influenza vaccine *QUAD* *2023-24* 0.5 ML SYRINGE IM ONE
[2023-05-31] MEDS: Enoxaparin 80 MG/0.8 ML SYR SUBCUT SCH (18:40)
[2023-05-31] MEDS: Senna TAB 8.6 mg TAB PO PRN (20:36)
[2023-05-31] MEDS: TAFAMIDIS 61 MG PO SCH (20:36)
[2023-06-01] MEDS: Enoxaparin 80 MG/0.8 ML SYR SUBCUT SCH ×2 (04:51→18:45)
[2023-06-01 08:06] LABS: ABS Eosinophils 0.2 10^3/uL (0.0-0.5); ABS Lymphocytes 0.7 10^3/uL (1.0-4.8); ABS Monocytes 0.4 10^3/uL (0.0-1.1); ABS Neutrophils 1.7 10^3/uL (1.5-7.6); ABS Nucleated RBC 0.01 10^3/ul; Hematocrit 36.7 % (38-53); Hemoglobin 12.8 g/dL (13.2-16.3); Lymphocyte % 23.1 %; Mean Corpuscular Hemoglobin 33.1 pg (27-33); Mean Corpuscular Volume 94.6 fL (80-97); Mean Platelet Volume 6.9 fL (7.5-11.2); Nucleated Red Blood Cells % 0.3 %/100WBC (0.0-0.8); Platelet Count 218 10^3/uL (150-450); Red Blood Count 3.88 10^6/uL (4.06-5.63); Red Cell Distribution Width 17.1 % (12-17)
[2023-06-01 08:29] LABS: Albumin 3.3 g/dL (3.2-5.2); Calcium 8.8 mg/dL (8.6-10.3); Creatinine, Serum 0.91 mg/dL (0.67-1.17); Globulin 3.2 g/dL (2-4); Total Protein 6.5 g/dL (6.4-8.9); eGFR CKD-EPI 84.7 (>60)
[2023-06-01] MEDS: CMC:Epleronone 25 mg TAB (NF) PO SCH (08:42)
[2023-06-01] MEDS ORDERED: Influenza vaccine *QUAD* *2023-24* 0.5 ML SYRINGE IM ONE (09:00)
[2023-06-01] MEDS: TAFAMIDIS 61 MG PO SCH (19:56)
[2023-06-02] MEDS: Enoxaparin 80 MG/0.8 ML SYR SUBCUT SCH ×2 (04:30→18:51)
[2023-06-02] MEDS: CMC:Epleronone 25 mg TAB (NF) PO SCH (08:02)
[2023-06-02] MEDS: TAFAMIDIS 61 MG PO SCH (21:54)
[2023-06-03] MEDS: Enoxaparin 80 MG/0.8 ML SYR SUBCUT SCH ×2 (05:44→18:36)
[2023-06-03] MEDS: CMC:Epleronone 25 mg TAB (NF) PO SCH (08:23)
[2023-06-03] MEDS: TAFAMIDIS 61 MG PO SCH (21:13)
[2023-06-04] MEDS: Enoxaparin 80 MG/0.8 ML SYR SUBCUT SCH ×2 (05:32→18:50)
[2023-06-04] MEDS: CMC:Epleronone 25 mg TAB (NF) PO SCH (07:41)
[2023-06-04] MEDS: TAFAMIDIS 61 MG PO SCH (21:18)
[2023-06-05] MEDS: Enoxaparin 80 MG/0.8 ML SYR SUBCUT SCH ×2 (06:17→18:34)
[2023-06-05] MEDS: CMC:Epleronone 25 mg TAB (NF) PO SCH (09:38)
[2023-06-05] MEDS: TAFAMIDIS 61 MG PO SCH (21:51)
[2023-06-06] MEDS: Enoxaparin 80 MG/0.8 ML SYR SUBCUT SCH ×2 (05:39→18:04)
[2023-06-06] MEDS: CMC:Epleronone 25 mg TAB (NF) PO SCH (09:09)
[2023-06-06] MEDS: TAFAMIDIS 61 MG PO SCH (21:23)
[2023-06-07] MEDS: Enoxaparin 80 MG/0.8 ML SYR SUBCUT SCH ×2 (06:17→17:15)
[2023-06-07] MEDS: CMC:Epleronone 25 mg TAB (NF) PO SCH (09:04)
[2023-06-07] MEDS: TAFAMIDIS 61 MG PO SCH (21:20)
[2023-06-07] MEDS: Senna TAB 8.6 mg TAB PO PRN (21:22)
[2023-06-08] MEDS: Enoxaparin 80 MG/0.8 ML SYR SUBCUT SCH ×2 (07:00→18:16)
[2023-06-08] MEDS: CMC:Epleronone 25 mg TAB (NF) PO SCH (08:09)
[2023-06-08 08:43] LABS: ABS Eosinophils 0.1 10^3/uL (0.0-0.5); ABS Lymphocytes 0.7 10^3/uL (1.0-4.8); ABS Monocytes 0.4 10^3/uL (0.0-1.1); ABS Neutrophils 1.4 10^3/uL (1.5-7.6); Eosinophil % 4.1 %; Hematocrit 37.9 % (38-53); Hemoglobin 13.1 g/dL (13.2-16.3); Lymphocyte % 27.4 %; Mean Corpuscular Hemoglobin 32.9 pg (27-33); Mean Corpuscular Hgb Conc 34.5 g/dL (31-36); Mean Corpuscular Volume 95.5 fL (80-97); Nucleated Red Blood Cells % 0.1 %/100WBC (0.0-0.8); Platelet Count 181 10^3/uL (150-450); Red Blood Count 3.97 10^6/uL (4.06-5.63); Red Cell Distribution Width 17.5 % (12-17); White Blood Count 2.7 10^3/uL (3.6-10.2)
[2023-06-08 08:57] LABS: Albumin 3.2 g/dL (3.2-5.2); Albumin/Globulin Ratio 0.9 (1-3); Calcium 8.6 mg/dL (8.6-10.3); Creatinine, Serum 0.97 mg/dL (0.67-1.17); Globulin 3.4 g/dL (2-4); Total Bilirubin 0.9 mg/dL (0.2-1.0); Total Protein 6.6 g/dL (6.4-8.9); eGFR CKD-EPI 78.4 (>60)
[2023-06-08] MEDS: TAFAMIDIS 61 MG PO SCH (20:27)
[2023-06-09] MEDS: Enoxaparin 80 MG/0.8 ML SYR SUBCUT SCH (05:27)
[2023-06-09 05:35] VITALS: BP 89/58
[2023-06-09] MEDS: CMC:Epleronone 25 mg TAB (NF) PO SCH (09:36)
== END 2023-06-09 12:00 | disposition home or self-care (01) | DRG 291 ==
LOC: PMRU 09:57
PROVIDERS: ADMIT Physical Medicine & Rehabilitation; ATTEND Physical Medicine & Rehabilitation